=== PATIENT | female | born 1940 | race Caucasian/White ===

== ENCOUNTER 2020-08-27 13:47 | Emergency (ER) | payer MEDICARE, SELFPAY ==
--- NOTE | ~2020-08-27 | CT_ITS ---
EXAMINATION: CT BRAIN AND CT CERVICAL SPINE WITHOUT CONTRAST. CLINICAL INFORMATION: Status post fall with head strike. COMPARISON: CT abdomen 06/16/2019 TECHNIQUE: 5 mm thin axial and reformatted 2 mm thin coronal and sagittal images of brain were obtained without contrast. Subsequently axial 3 mm thin and reformatted 2 mm thin sagittal and coronal images of cervical spine were obtained. DLP 1028 FINDINGS: Brain: There is no acute intra-axial, extra-axial bleed, masses, collection or midline shift. There is no acute infarction in evolution. There is prominent Virchow Helms space at the thalamocaudate groove. Small lacunar infarction is seen in left ventral thalamus and right bety. The lateral ventricles are symmetrical and mildly prominent. There is mild prominence of cortical sulci. Bone windows reveal no calvarial fracture. There is benign hyperostosis frontalis interna. There is no scalp soft tissue abnormality. Bilateral paranasal sinuses and mastoid air cells are well-aerated. Cervical spine: On sagittal reconstructed images there is mild straightening of cervical lordosis. There is grade 1 anterolisthesis C3 over C4. There is loss of C4-C5, C5-C6 and C6-C7 disc heights with moderate ventral and mild posterior spondylosis. The craniovertebral junction and the C1-C2 alignment is normal. There is moderate left C3-C4, C4-C5 facet joint arthropathy and hypertrophy resulting in bilateral moderate narrowing of neural foramina. The prevertebral and paravertebral soft tissues are normal. The airway is widely patent. The thyroid lobes are symmetrical and normal. No visible acute fracture, dislocation or subluxation seen. Patient's head is tilted to the left, question spasm. CT/CT cervical spine wo con IMPRESSION: No acute intracranial process seen. Lacunar infarction left ventral thalamus and right bety. Age-related mild cerebral volume loss. Mild tilt cervical spine to the left. No visible acute fracture or dislocation. There are degenerative disc changes as described above.
--- NOTE | 2020-08-27 14:07 | ED.FALL ---
HPI - Fall General Chief Complaint: Fall Stated Complaint: FALL W/ HEAD STRIKE Time Seen by Provider: 08/27/20 14:06 Source: EMS Mode of arrival: EMS History of Present Illness HPI Narrative: 80 y/o female with history of CVA with left sided hemiparesis, wheelchair bound, PVD s/p fem-pop bypass, hx DM2 on insulin, HTN, HLD, obesity, depression who presents to the ED from home via EMS with a mechanical fall in the bathroom just prior to arrival. Patient's sister who she lives with and cares for her reports that she was helping the patient get up from the toilet when she tripped over the wheel of her wheelchair and feel forward. She hit her head against the wall in front of her. Sister denies LOC. She is on Plavix for her hx CVA but no aspirin or anticoagulation. Patient is AAO x3 and conversant on arrival. She is collared. She denies headache or neck pain. MD complaint: fall Onset (ago): hour(s) (1) Fall from: standing Fall witnessed: yes, by family Place fall occurred: home Loss of consciousness: none Prolonged down time: no Symptoms prior to fall: none Context: tripped/slipped Location of injury: head Severity: mild Associated symptoms (after fall): denies Related Data Allergies Allergy/AdvReac Type Severity Reaction Status Date / Time No Known Allergies Allergy Unverified 11/15/19 16:31 Review of Systems Review of Systems: Constitutional: No Fever, No Chills ENT/Mouth: No sore throat, No Rhinorrhea, No Swallowing Difficulty Eyes: No Eye Pain, No Swelling, No Redness Cardiovascular: No Chest Pain, No SOB, No Orthopnea, No Edema Respiratory: No Cough, No Sputum, No Wheezing, No dyspnea Gastrointestinal: No Nausea, No Vomiting, No Diarrhea, No abdominal Pain, No Hematochezia, No Melena Genitourinary: No Dysuria, No Urinary Frequency, No Hematuria Musculoskeletal: No joint pain, No Myalgias Skin: No Skin Lesions, No rash Neuro: No Weakness, No Numbness, No Dizziness, No Headache Psych: No Anxiety/Panic, No Depression Heme/Lymph: No Bruising, No Lymphadenopathy Endocrine: No Polyuria, No Polydipsia PMFSH Past Medical History Attestation statement: The following information was validated with the patient. Medical History CVA (cerebral vascular accident) Depression Diabetes HTN (hypertension) Macular degeneration Social History Social History Advance Directives: Yes Advance Directives Information Provided: Yes Advance Directives on File: No Physical Exam Vital Signs: Vital Signs: Last Vital Signs Temp 96.1 F L 08/27/20 14:13 Pulse 63 08/27/20 14:13 Resp 18 08/27/20 14:13 BP 133/52 L 08/27/20 14:13 Pulse Ox 97 08/27/20 14:13 Body Mass Index 53.1 Appearance: Alert. Oriented X3. No acute distress. Eyes: Pupils equal, round and reactive to light. ENT: Pharynx normal. Neck: Normal inspection. Neck supple. CVS: Normal heart rate and rhythm. Pulses normal. Respiratory: No respiratory distress. Breath sounds normal. Abdomen: Soft and nontender. +BS x4 Skin: Skin warm and dry. Normal skin color. Normal skin turgor. No rashes. Extremities: left sided hand contractures, left sided Neuro: Oriented X 3. No motor deficit. No sensory deficit. Course Course Course Narrative: 80 y/o female with history of stroke and left sided hemiplegia presenting with witnessed mechanical fall today in the bathroom with head strike, no LOC. Arrives in C-collar with no complaints. Will get CT head/neck prior to clearing cervical spine. Reevaluation(s) Reevaluation #1: CT scans showing no acute process, old lacunar infarcts noted. No traumatic injuries. Spoke with patient's sister who she lives with and who cares for her. She feels safe taking the patient home at this time. Declining need for higher level of care. Patient is stable for discharge. Discharge Plan Discharge Clinical Impression: Accident due to mechanical fall without injury Qualifiers: Encounter type: initial encounter Qualified Code(s): W19.XXXA - Unspecified fall, initial encounter Patient Disposition: Home, Self-Care Instructions: Fall Prevention for Older Adults (ED) Additional Instructions: Your CT scans today did not show any injuries from your fall. Recommend assistance whenever getting in and out of your wheelchair. Follow up with your doctor as needed.
[2020-08-27 14:13] VITALS: BP 133/52; BP 133/80; PULSE 63; PULSE 67; RESP 18; TEMP 35.6; O2SAT 97; BMI 53.1
== END 2020-08-27 16:35 | disposition home or self-care (01) ==
PROVIDERS: Emergency Provider Emergency Medicine; PCP Internal Medicine
DX: Z04.3 Encounter for examination and observation following other accident (principal); I69.954 Hemiplegia and hemiparesis following unspecified cerebrovascular disease affecting left non-dominant side; I10 Essential (primary) hypertension; E11.9 Type 2 diabetes mellitus without complications; Z79.02 Long term (current) use of antithrombotics/antiplatelets; Z79.4 Long term (current) use of insulin; Z91.81 History of falling; Z99.3 Dependence on wheelchair
CPT/HCPCS: 70450; 72125; 99283; 99284

== ENCOUNTER 2021-01-16 21:51 | Inpatient (IN) | payer MEDICARE, SELFPAY ==
--- NOTE | ~2021-01-16 | XR_ITS ---
EXAMINATION: XR HIP, LEFT WITH PELVIS CLINICAL INFORMATION: Fall, rule out fracture COMPARISON: 08/24/2018 TECHNIQUE: Two views of the left hip. AP pelvis. FINDINGS: There is a fracture of the left femoral neck with superior displacement of the femoral shaft fragment. Alignment across the hips appears anatomic with mild degenerative change bilaterally. Remainder of the bony pelvis appears intact. Sacroiliac joints and pubic symphysis are intact. Vascular calcifications are present. Clips are noted over the bilateral inguinal regions, left greater than right. XR/XR hip LT w PEL1V IMPRESSION: Left femoral neck fracture.
--- NOTE | ~2021-01-16 | XR_ITS ---
EXAMINATION: XR ANKLE, LEFT CLINICAL INFORMATION: Fall. COMPARISON: No similar priors. TECHNIQUE: AP, lateral, and mortise views of the left ankle. FINDINGS: Diffuse soft tissue edema and scattered vascular calcifications. Decreased bony demineralization with deformity and ankylosis of several joints within the hind and mid foot. Severe degenerative changes of the tibiotalar joint. No definite acute osseous fractures. XR/XR ankle LT 2V IMPRESSION: No acute fractures or malalignment although evaluation of subtle injuries is limited due to the degree of degenerative disease and bony demineralization. Ankylosis and deformity of the hind and mid foot. If ligamentous injury is suspected, consider further evaluation with an MR of the left ankle.
--- NOTE | ~2021-01-16 | CT_ITS ---
EXAMINATION: CT HEAD WITHOUT CONTRAST CT CERVICAL SPINE WITHOUT CONTRAST CLINICAL INFORMATION: Fall. COMPARISON: CT head and cervical spine dated from 08/27/2020. TECHNIQUE: Contiguous axial imaging was performed from the skull base to vertex without intravenous administration of contrast. Contiguous axial imaging was performed from the upper chest through the skull base without intravenous administration of contrast. Coronal and sagittal reformats were obtained at the acquisition workstation. This CT examination was performed using dose optimization techniques as appropriate, variously including the following: *Automated exposure control *Adjustment of mA and/or kV according to patient size (this includes techniques or standardized protocols for targeted exams where dose is matched to indication/reason for exam; i.e. extremities or head) *Use of iterative reconstruction technique DLP: 617 mGy-cm FINDINGS: Head: There is no evidence of acute intracranial hemorrhage or edematous territorial infarction. Scattered hypoattenuation in the periventricular and deep white matter are consistent with moderate microangiopathy. Multifocal remote infarcts. [place]teh-white matter differentiation is preserved. Proportional prominence of the ventricles and sulcal spaces. No evidence for obstructive hydrocephalus. No abnormal mass effect or midline shift. No extra-axial fluid collections. No acute soft tissue or osseous abnormalities. The mastoid air cells and paranasal sinuses are clear. Cervical Spine: The atlantooccipital and atlantoaxial articulations remain well aligned. Straightening of the normal cervical lordosis. There is grade 1 anterolisthesis of C3 on C4. Otherwise, there is anatomic alignment of the vertebral bodies and posterior elements. No evidence of acute fracture or subluxation. Severe cervical spondylosis with disc space narrowing, anterior osteophytes and uncovertebral hypertrophy leading to varying degrees of neural foraminal narrowing and central spinal canal stenosis. There is no prevertebral soft tissue swelling. The thyroid gland and remaining cervical soft tissues are normal in appearance. The lung apices demonstrate biapical pleural thickening/scarring. Evaluation of pulmonary nodules is suboptimal due to motion. CT/CT cervical spine wo con IMPRESSION: No acute intracranial abnormalities. Chronic microangiopathy, generalized cerebral volume loss and multiple bilateral chronic lacunar infarcts. No acute cervical findings. Severe cervical spondylosis.
[2021-01-16 22:00] VITALS: BP 150/54; PULSE 78; RESP 16; TEMP 36.6; O2SAT 91
[2021-01-16 22:03] VITALS: BP 134/76; BP 150/54; PULSE 80; PULSE 84; RESP 18; TEMP 36.6; O2SAT 97; O2SAT 98; BMI 39.8
--- NOTE | 2021-01-16 22:29 | ECG_ITS ---
Test Reason : DYSPNEA Blood Pressure : / mmHG Vent. Rate : 081 BPM Atrial Rate : 081 BPM P-R Int : 162 ms QRS Dur : 086 ms QT Int : 382 ms P-R-T Axes : 079 070 081 degrees QTc Int : 443 ms Normal sinus rhythm Poor R wave progression Borderline ECG When compared with ECG of 16-JUN-2019 14:00, No significant change was found Referred By: Radha Garcia Electronically Signed By:REYNALDO SALCIDO MD
--- NOTE | 2021-01-16 22:41 | ED.FALL ---
HPI - Fall General Chief Complaint: Fall Stated Complaint: fall/head strike Time Seen by Provider: 01/16/21 21:58 Source: patient and EMS Mode of arrival: EMS Limitations: no limitations History of Present Illness HPI Narrative: Patient comes to emergency room by EMS after falling. Patient had a mechanical fall at home, patient states that she was getting off the toilet, tripped. Patient has baseline paralysis on the left side and states that her left leg does not respond very well which caused her to trip. Patient denies hitting her head, did not lose consciousness. Patient landed on the left side of her hip. Initially, patient told the triage nurse that she had neck pain, patient denied ever having neck pain. Denies headache. Patient takes Plavix. Patient states that if she moves her hip it hurts quite a bit. Patient also noted to have internal rotation of the left ankle, states that it looks different to her but it is not painful. Related Data Allergies Allergy/AdvReac Type Severity Reaction Status Date / Time No Known Allergies Allergy Unverified 11/15/19 16:31 Review of Systems Review of Systems: Constitutional : No Weight loss, No Fever, No Chills, No Night Sweats, No Fatigue, No Malaise ENT/Mouth : No Hearing loss, No Ear Pain, No Nasal Congestion, No Sinus Pain, No Hoarseness, No sore throat, No Rhinorrhea, No Swallowing Difficulty Eyes: No Eye Pain, No Swelling, No Redness, No Foreign Body, No Discharge, No Vision Changes Cardiovascular : No Chest Pain, No SOB, No Dyspnea on Exertion, No Orthopnea, No Edema, No Palpitations Respiratory : No Cough, No Sputum, No Wheezing, No Smoke Exposure, No Dyspnea Gastrointestinal : No Nausea, No Vomiting, No Diarrhea, No Constipation, No abdominal Pain, No Hematochezia, No Melena Genitourinary : no irregular bleeding, No Dysuria, No Urinary Frequency, No Hematuria, No Urinary Incontinence, No Urgency, No Flank Pain, No Urinary Flow Changes, No Hesitancy Musculoskeletal : Patient complaining of left-sided hip pain, left ankle deformity. Skin : No Skin Lesions, No rash Neuro : No Weakness, No Numbness, No Paresthesias, No Loss of Consciousness, No Dizziness, No Headache Psych : No Anxiety/Panic, No Depression, No SI/HI/AH/VH, No Social Issues, Heme/Lymph: No Bruising, No Bleeding,No Lymphadenopathy Endocrine : No Polyuria, No Polydipsia, No Temperature Intolerance [facility], [facility] Past Medical History Medical History CVA (cerebral vascular accident) Depression Diabetes HTN (hypertension) Macular degeneration Social History Social History Patient Tobacco Use Status: Never used Tobacco Use of substances other than those prescribed or required for medical reasons: No Advance Directives: No Advance Directives Information Provided: No Physical Exam Vital Signs: Vital Signs: Last Vital Signs Temp 97.8 F 01/16/21 22:03 Pulse 80 01/16/21 22:03 Resp 18 01/16/21 22:03 BP 150/54 H 01/16/21 22:03 Pulse Ox 98 01/16/21 22:03 Body Mass Index 39.8 Const: Other: Appearance: Alert. Oriented X3. No acute distress. Eyes: Pupils equal, round and reactive to light. ENT: Pharynx normal. Neck: Normal inspection. Neck supple. No lymph nodes noted. No crepitus, no palpable step-offs, no C-spine tenderness on palpation. Patient took off her C-collar CVS: Normal heart rate and rhythm. Pulses normal. Normal S1 and S2 Respiratory: No respiratory distress. Breath sounds normal. No Wheezing. No rales Abdomen: Soft and nontender. No rigidity. No distention. good BS x4 Skin: Skin warm and dry. Normal skin color. Normal skin turgor. Extremities: No lower extremity edema. Severe pain with any movement on the left hip. Left ankle is internally rotated, not painful to palpation. Neuro: Oriented X 3. No motor deficit. No sensory deficit. Moving all extermities. No slurred speech. Course Course Course Narrative: I discussed the patient with AI Valladares from Orthopedics, patient being admitted by Medicine for left femoral fracture MDM - Fall Lab Data Result diagrams: 01/17/21 00:22 01/17/21 00:22 Imaging Data Head and neck CT scan: Radiologist's impression: INDINGS: Head: There is no evidence of acute intracranial hemorrhage or edematous territorial infarction. Scattered hypoattenuation in the periventricular and deep white matter are consistent with moderate microangiopathy. Multifocal remote infarcts. [place]-white matter differentiation is preserved. Proportional prominence of the ventricles and sulcal spaces. No evidence for obstructive hydrocephalus. No abnormal mass effect or midline shift. No extra-axial fluid collections. No acute soft tissue or osseous abnormalities. The mastoid air cells and paranasal sinuses are clear. Cervical Spine: The atlantooccipital and atlantoaxial articulations remain well aligned. Straightening of the normal cervical lordosis. There is grade 1 anterolisthesis of C3 on C4. Otherwise, there is anatomic alignment of the vertebral bodies and posterior elements. No evidence of acute fracture or subluxation. Severe cervical spondylosis with disc space narrowing, anterior osteophytes and uncovertebral hypertrophy leading to varying degrees of neural foraminal narrowing and central spinal canal stenosis. There is no prevertebral soft tissue swelling. The thyroid gland and remaining cervical soft tissues are normal in appearance. The lung apices demonstrate biapical pleural thickening/scarring. Evaluation of pulmonary nodules is suboptimal due to motion. CT/CT cervical spine wo con IMPRESSION: No acute intracranial abnormalities. ? Chronic microangiopathy, generalized cerebral volume loss and multiple bilateral chronic lacunar infarcts. ? No acute cervical findings. ? Severe cervical spondylosis. Hip x-ray: Radiologist's impression: FINDINGS: There is a fracture of the left femoral neck with superior displacement of the femoral shaft fragment. Alignment across the hips appears anatomic with mild degenerative change bilaterally. Remainder of the bony pelvis appears intact. Sacroiliac joints and pubic symphysis are intact. Vascular calcifications are present. Clips are noted over the bilateral inguinal regions, left greater than right. XR/XR hip LT w PEL1V IMPRESSION: Left femoral neck fracture. Left ankle x-ray: Radiologist's impression: XR/XR ankle LT 2V IMPRESSION: No acute fractures or malalignment although evaluation of subtle injuries is limited due to the degree of degenerative disease and bony demineralization. ? Ankylosis and deformity of the hind and mid foot. ? If ligamentous injury is suspected, consider further evaluation with an MR of the left ankle. ECG Data Attestation: I personally reviewed and interpreted this ECG as follows: (Send rhythm, heart rate 81, nonspecific ST segment depression in V5 V6, no reciprocal changes, no T-wave inversion, QTC 443) Discharge Plan Discharge Clinical Impression: Fracture of femoral neck, left, closed Patient Disposition: Admitted As Inpatient
[2021-01-17 00:26] LABS: MANUAL DIFF FLAG NO
[2021-01-17 00:33] LABS: Basophils Percent Auto 0.3 % (0-2); Eosinophils Absolute Auto 0.1 X10*3/uL (0.0-0.4); Eosinophils Percent Auto 0.5 % (0-4); Hematocrit 39.8 % (37.0-47.0); Hemoglobin 13.1 g/dl (12.0-16.0); Imm Gran Abs Auto 0.05 X10*3/uL (0.00-0.03); Imm Gran Pct Auto 0.5 % (0.0-0.4); Lymphocytes Absolute Auto 0.6 X10*3/uL (1.2-4.9); Lymphocytes Percent Auto 5.9 % (20-40); Mean Corpuscular HGB Conc 32.9 g/dl (31.0-35.0); Mean Corpuscular Volume 97.3 fL (80.0-98.0); Mean Platelet Volume 10.4 fL (9.4-12.3); Monocytes Absolute Auto 0.9 X10*3/uL (0.1-1.2); Monocytes Percent Auto 8.8 % (2-11); Neutrophils Absolute Auto 8.7 x10*3/uL (2.0-8.3); Platelet Count 207 X10*3/uL (160-400); Red Blood Count 4.09 X10*6/uL (4.20-5.50); Red Cell Distribution Width 12.7 % (11.0-16.0); White Blood Count 10.4 X10*3/uL (4.8-10.8)
[2021-01-17 00:37] VITALS: BP 134/38; PULSE 85; O2SAT 89
[2021-01-17] MEDS: traMADoL HCL 50 MG TABLET PO (00:45)
[2021-01-17 00:49] LABS: Alanine Aminotransferase 19 U/L (0-31); Albumin Level 3.6 g/dL (3.5-5.0); Alkaline Phosphatase 125 U/L (39-117); Anion Gap 16 (12-20); Aspartate Amino Transferase 16 U/L (5-31); Bilirubin Direct 0.3 mg/dL (0.0-0.5); Bilirubin Total 0.6 mg/dL (0.0-1.0); Blood Urea Nitrogen 32 mg/dL (9-16); Calcium 8.4 mg/dL (8.4-10.2); Carbon Dioxide 22 mmol/L (22-29); Chloride 102 mmol/L (96-108); Creatinine Clr Calc Pharmacy 33.9; Estimated Glomerular Filt Rate 34; Glucose Random 231 mg/dL (60-115); Potassium 5.1 mmol/L (3.3-5.1); Sodium 135 mmol/L (135-145); Total Protein 6.1 g/dL (6.5-8.0)
--- NOTE | 2021-01-17 00:50 | PC.NURSE ---
PT MEDICATED PER MAR FOR LEFT HIP PAIN. AWAITING ADMISSION FOR HIP FX, AWARE OF PLAN OF CARE.
[2021-01-17] MEDS: Morphine Sulfate 2 MG/ML CARTRIDGE 1 MG IVPUSH ×2 (02:34→05:21)
[2021-01-17 04:00] VITALS: RESP 16
--- NOTE | 2021-01-17 04:07 | PC.NURSE ---
PT RESTING IN BED SKIN PWD RESPIRATIONS EVEN UNLABORED. APPEARS COMFORTABLE. CONTINUES TO AWAIT BED ASSIGNMENT.
--- NOTE | 2021-01-17 05:47 | ECG_ITS ---
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 Rate : 083 BPM Atrial Rate : 083 BPM P-R Int : 152 ms QRS Dur : 090 ms QT Int : 362 ms P-R-T Axes : 058 054 075 degrees QTc Int : 425 ms Normal sinus rhythm Normal ECG When compared with ECG of 16-JAN-2021 22:45, No significant change was found Referred By: Radha Garcia Electronically Signed By:REYNALDO SALCIDO MD
[2021-01-17] MEDS: ondansetron HCL 4 MG/2 ML VIAL IVPUSH (05:48)
--- NOTE | 2021-01-17 05:50 | PC.NURSE ---
Hospitalist at bedside. Pt c/o of nausea and squeezing chest pain after being medicated with Morphine. Hospitalist requesting EKG. Pt medicated for nausea with Zofran. Pt now denying CP at this time, Hospitalist aware.
--- NOTE | 2021-01-17 05:59 | PM.IMHP ---
History of Present Illness Date of Service: 01/17/21 Chief Complaint: Fall This is a 80-year-old female with past medical history of CVA, depression, diabetes, hypertension, macular degeneration who presents to the hospital with complaints of fall. Patient reports that she was in the bathroom, got up distal pad of the bathroom slipped and fell. She denies having any loss of consciousness, she hit her head as she was falling. And she fell on her left hip. She reports no dizziness palpitation or chest pain prior to the fall. On my interview patient started complaining of squeezing chest pain, she had just received morphine therefore she is also complaining of nausea and had a slight vomiting. She had an EKG done well 0 standing there, which showed no EKG changes suggestive of ACS. She denies having any shortness of breath, no abdominal pain nausea or vomiting, no diarrhea constipation, no urinary symptoms and lower extremity. On arrival to the ED patient's vitals are significant for temp 97.8, otherwise unremarkable. Satting 91% on room air Labs are significant for WBC count of 10.4, BUN of 32, creatinine of 1.48 with a baseline of 0.9, X-ray of the hip shows left femoral neck fracture, X-ray of the ankle shows no acute fracture or malalignment at low evaluation of subtle injury is a similar due to the degree of degenerative disease and bony demineralization. Patient will be admitted with an orthopedic consult Review of Systems Review of Systems: Yes all other systems are reviewed and are negative [facility] Medical History (Updated 01/17/21 @ 06:06 by Cathryn Daniel MD) CVA (cerebral vascular accident) Depression Diabetes HTN (hypertension) Macular degeneration Pertinent family history: No family history of cardiovascular disease Surgical History (Updated 01/17/21 @ 06:04 by Cathryn Daniel MD) No pertinent past surgical history Social History Patient Tobacco Use Status: Never used Tobacco Use of substances other than those prescribed or required for medical reasons: No Advance Directives: No Advance Directives Information Provided: No Meds Allergies Allergy/AdvReac Type Severity Reaction Status Date / Time No Known Allergies Allergy Unverified 11/15/19 16:31 Active Medications: Current Medications Acetaminophen (Acetaminophen 325 Mg Tablet) 650 mg PO Q6H PRN PRN Reason: Pain, Mild (Pain Scale 1-3) Docusate Sodium (Docusate Sodium 100 Mg Capsule) 100 mg PO DAILY PRN PRN Reason: Constipation Morphine Sulfate (Morphine Sulfate 4 Mg/Ml Cartridge) 4 mg IVPUSH Q4H PRN; Protocol PRN Reason: Pain, Severe (Pain Scale 7-10) Ondansetron HCl (Ondansetron Hcl 4 Mg/2 Ml Vial) 4 mg IVPUSH Q8H PRN PRN Reason: Nausea and Vomiting Last Admin: 01/17/21 05:48 Dose: 4 mg Documented by: Sodium Chloride (0.9 % Sodium Chloride Flush 3 Ml Syringe) 3 ml [facility] – [place] Home Medications Medication Instructions Recorded Confirmed Last Taken Type amlodipine 10 mg tablet 1 tab PO DAILY 01/17/21 01/17/21 Unknown History bupropion HCl 150 mg 24 hr tablet, 1 tab PO DAILY 01/17/21 01/17/21 Unknown History extended release clopidogrel 75 mg tablet 1 tab PO DAILY 01/17/21 01/17/21 Unknown History famotidine 20 mg tablet 1 tab PO BID 01/17/21 01/17/21 Unknown History fluoxetine 40 mg capsule 1 cap PO DAILY 01/17/21 01/17/21 Unknown History insulin glargine 100 unit/mL (3 56 unit SUBCUT BEDTIME 01/17/21 01/17/21 Unknown History mL) subcutaneous pen (Lantus Solostar U-100 Insulin) insulin lispro 100 unit/mL sliding scale dose SUBCUT TIDAC PRN 01/17/21 Unknown History subcutaneous pen losartan 50 mg tablet 1 tab PO DAILY 01/17/21 01/17/21 Unknown History metoprolol succinate 25 mg 1 tab PO DAILY 01/17/21 01/17/21 Unknown History tablet,extended release 24 hr simvastatin 20 mg tablet 1 tab PO BEDTIME 01/17/21 01/17/21 Unknown History spironolactone 25 mg tablet 1 tab PO DAILY 01/17/21 01/17/21 Unknown History Physical Exam Vital Signs and Narrative: Vital Signs: Last Vital Signs Temp 97.8 F 01/16/21 22:03 Pulse 85 01/17/21 00:37 Resp 16 01/17/21 04:00 BP 134/38 L 01/17/21 00:37 Pulse Ox 89 L 01/17/21 00:37 Body Mass Index 39.8 Const: Other: Appears uncomfortable, squeezing her chest, had an episode of vomiting while I was present General: cooperative and no acute distress Orientation/consciousness: patient oriented x3 Eyes: General: appearance normal, both eyes and all related structures Pupils: Equal, round and reactive pupils present Resp: Effort & Inspection: normal respiratory effort Auscultation: clear to auscultation bilaterally Cardio: Rate: regular rate Rhythm: regular rhythm GI: Other: Soft nontender Palpation (GI): Soft to palpation Auscultation: normal bowel sounds Skin: General skin exam: no rashes or lesions noted Neuro: General: patient oriented x3 Cranial nerves: Yes Equal, round and reactive pupils present Cognition (Neuro): normal cognition Extrem: Other: Left extremity is internally rotated General: Yes normal to inspection and Yes no pedal edema Results Labs CBC and Chem 7: 01/17/21 00:22 01/17/21 00:22 Labs: Laboratory Results - last 24 hr 01/17/21 01/17/21 00:22 00:22 MCV 97.3 MCH 32.0 MCHC 32.9 RDW 12.7 Plt Count 207 MPV 10.4 Immature Gran % (Auto) 0.5 H Neut % (Auto) 84.0 H Lymph % (Auto) 5.9 L [place] % (Auto) 8.8 Eos % (Auto) 0.5 Baso % (Auto) 0.3 Lymph # (Auto) 0.6 L [place] # (Auto) 0.9 Eos # (Auto) 0.1 Baso # (Auto) 0.0 Abs Immat Gran (auto) 0.05 H Absolute Neuts (auto) 8.7 H Absolute Nucleated RBC 0.000 Nucleated RBC % (auto) 0.0 Anion Gap 16 Estim Creat Clear Calc 33.9 Estimated GFR 34 Random Glucose 231 H Calcium 8.4 Total Bilirubin 0.6 Direct Bilirubin 0.3 AST 16 ALT 19 Alkaline Phosphatase 125 H Total Protein 6.1 L Albumin 3.6 ECG Interpretation: EKG shows normal sinus rhythm with no ST T-wave changes suggestive of ACS Imaging Radiologist's Impressions: Impressions Ankle X-Ray 01/16/21 22:29 IMPRESSION: No acute fractures or malalignment although evaluation of subtle injuries is limited due to the degree of degenerative disease and bony demineralization. Ankylosis and deformity of the hind and mid foot. If ligamentous injury is suspected, consider further evaluation with an MR of the left ankle. Cervical Spine CT 01/16/21 22:29 IMPRESSION: No acute intracranial abnormalities. Chronic microangiopathy, generalized cerebral volume loss and multiple bilateral chronic lacunar infarcts. No acute cervical findings. Severe cervical spondylosis. Head CT 01/16/21 22:29 IMPRESSION: No acute intracranial abnormalities. Chronic microangiopathy, generalized cerebral volume loss and multiple bilateral chronic lacunar infarcts. No acute cervical findings. Severe cervical spondylosis. Hip/Pelvis X-Ray 01/16/21 22:29 IMPRESSION: Left femoral neck fracture. Assessment and Plan (1) Fracture of femoral neck, left, closed: Qualifiers: Encounter type: initial encounter Qualified Code(s): S72.002A - Fracture of unspecified part of neck of left femur, initial encounter for closed fracture Status: Acute (2) Chest pain: Status: Acute 80-year-old female with various medical history including diabetes and hypertension who presents to the hospital with complaints of fall found to have left femoral neck fracture # left femoral neck fracture - secondary to mechanical fall - pain control with morphine - will keep NPO - orthopedic consult for possible surgical intervention in morning # chest pain - complaining of squeezing chest pain, developed nausea vomiting immediately after receiving morphine - EKG shows no ST T-wave changes - will obtain troponin - monitor # diabetes - hold oral antihyperglycemics - will start low-dose sliding scale insulin - diabetic diet once able to eat # hypertension - stable - continue antihypertensive Will hold Plavix DVT prophylaxis: SCDs Quality Stroke Does the patient have a stroke diagnosis?: No VTE Prior VTE?: No VTE Risk Level:: Medical - moderate - high VTE Device Contraindication: N/A - Device Ordered VTE Drug Contraindication: Treatment Not Indicated
--- NOTE | 2021-01-17 06:20 | PHA.MEDREC ---
Pharmacy Consult ? Medication Reconciliation Pharmacy has checked the previous medication reconciliation.
[2021-01-17 06:38] LABS: MANUAL DIFF FLAG NO
[2021-01-17 06:45] LABS: Basophils Percent Auto 0.2 % (0-2); Eosinophils Absolute Auto 0.1 X10*3/uL (0.0-0.4); Eosinophils Percent Auto 0.7 % (0-4); Hemoglobin 12.8 g/dl (12.0-16.0); Imm Gran Abs Auto 0.05 X10*3/uL (0.00-0.03); Imm Gran Pct Auto 0.4 % (0.0-0.4); Lymphocytes Absolute Auto 0.7 X10*3/uL (1.2-4.9); Lymphocytes Percent Auto 5.3 % (20-40); Mean Corpuscular HGB Conc 33.7 g/dl (31.0-35.0); Mean Corpuscular Hemoglobin 32.1 pg (27.0-33.0); Mean Corpuscular Volume 95.2 fL (80.0-98.0); Mean Platelet Volume 10.4 fL (9.4-12.3); Monocytes Absolute Auto 1.3 X10*3/uL (0.1-1.2); Monocytes Percent Auto 10.3 % (2-11); Neutrophils Absolute Auto 10.2 x10*3/uL (2.0-8.3); Neutrophils Percent Auto 83.1 % (45-73); Platelet Count 214 X10*3/uL (160-400); Red Blood Count 3.99 X10*6/uL (4.20-5.50); Red Cell Distribution Width 12.4 % (11.0-16.0); White Blood Count 12.2 X10*3/uL (4.8-10.8)
[2021-01-17 07:02] LABS: Anion Gap 14 (12-20); Blood Urea Nitrogen 32 mg/dL (9-16); Calcium 8.1 mg/dL (8.4-10.2); Carbon Dioxide 22 mmol/L (22-29); Chloride 104 mmol/L (96-108); Creatinine Clr Calc Pharmacy 39.6; Estimated Glomerular Filt Rate 40; Glucose Random 236 mg/dL (60-115); Potassium 5.1 mmol/L (3.3-5.1); Sodium 135 mmol/L (135-145)
[2021-01-17 07:10] LABS: Troponin-I High Sensitivity 17.2 ng/L (<3.5-17.0)
[2021-01-17 08:56] VITALS: BP 120/58; PULSE 86; RESP 20; O2SAT 97
[2021-01-17] MEDS: Famotidine 20 MG TABLET PO ×2 (08:58→21:07)
[2021-01-17] MEDS: amLODIPine Besylate 10 MG TABLET PO (08:58)
[2021-01-17] MEDS: 0.9 % Sodium Chloride Flush 3 ML SYRINGE IVFLUSH ×3 (08:58→22:34)
[2021-01-17] MEDS: Spironolactone 25 MG TABLET PO (08:58)
[2021-01-17] MEDS: FLUoxetine HCl 20 MG CAPSULE 40 MG PO (08:58)
[2021-01-17] MEDS: buPROPion HCl XL 150 MG TAB.ER.24H PO (08:58)
[2021-01-17] MEDS: Metoprolol Succinate ER 25 MG TAB.ER.24H PO (08:58)
[2021-01-17] MEDS: Losartan Potassium 50 MG TABLET PO (08:59)
--- NOTE | 2021-01-17 10:05 | PM.EVENT ---
Event Note Date of Service: 01/17/21 Event Note: 80 yo with femoral neck fracture on plavix tentative plan for OR tuesday or tuesday. Plavix cont to hold. make NPO after midnight
[2021-01-17 10:16] LABS: COVID-19 Test Negative (Negative)
[2021-01-17 11:05] LABS: Glucose, Whole Blood 237 mg/dL (60-115)
--- NOTE | 2021-01-17 11:15 | PM.EVENT ---
Event Note Date of Service: 01/17/21 Event Note: Preop evaluation None emergency surgery, no acute coronary syndrome High MACE score of 2, moderate functional capacity EKG showing no ST or T-wave changes Proceed to operating room, no further testing necessary at this point patient carries mild to moderate risk of perioperative cardiac complications
[2021-01-17 12:59] VITALS: BP 148/48; PULSE 81; RESP 18; TEMP 36.7; O2SAT 97
--- NOTE | 2021-01-17 13:00 | PC.NURSE ---
patient a&ox2, pt c/o left leg pain 5/10, + csm/pulses to LLE, rowan cath patient, draining, family at bedside, will continue to monitor.
[2021-01-17 13:03] LABS: Glucose, Whole Blood 248 mg/dL (60-115)
--- NOTE | 2021-01-17 14:33 | PC.NURSE ---
patient a&ox2, pt rowan cath patient/draining clear yellow urine, pt refusing pain medications at this time, pt continues to have + csm/pulses to lle, will continue to monitor.
--- NOTE | 2021-01-17 15:40 | PM.CNOR ---
History of Present Illness HPI Consult date: 01/17/21 Chief complaint: Femoral Fracture Narrative: This is a 80-year-old female with past medical history of CVA, depression, diabetes, hypertension, macular degeneration who presents to the hospital with complaints of fall.? Patient reports that she was in the bathroom, slipped and fell. She states she was unable to get up. At baseline she is wheelchair bound, left sided hemiparesis s/p CVA in 2013. She was transported to the ED via EMS. While in the ED, xrays showed displaced femoral neck fracture on the left side. She was admitted to the medical service and orthopedics was consulted for surgical planning. Review of Systems Review of Systems: Yes all other systems are reviewed and are negative PMFSH Past Medical History Medical History (Updated 01/17/21 @ 06:06 by Cathryn Daniel MD) CVA (cerebral vascular accident) Depression Diabetes HTN (hypertension) Macular degeneration Surgical History Surgical History (Updated 01/17/21 @ 06:04 by Ctahryn Daniel MD) No pertinent past surgical history Social History Social History Household Members: Family Housing: House Patient Tobacco Use Status: Never used Tobacco service: No Current occupational status: retired Meds Allergies Allergy/AdvReac Type Severity Reaction Status Date / Time No Known Allergies Allergy Unverified 11/15/19 16:31 Active Medications: Current Medications Acetaminophen (Acetaminophen 325 Mg Tablet) 650 mg PO Q6H PRN PRN Reason: Pain, Mild (Pain Scale 1-3) Amlodipine Besylate (Amlodipine Besylate 10 Mg Tablet) 10 mg PO DAILY [facility]; Protocol Last Admin: 01/17/21 08:58 Dose: 10 mg Documented by: Atorvastatin Calcium (Atorvastatin Calcium 10 Mg Tablet) 10 mg PO BEDTIME [facility] Bupropion HCl (Bupropion Hcl Xl 150 Mg Tab.Er.24h) 150 mg PO DAILY [facility] Last Admin: 01/17/21 08:58 Dose: 150 mg Documented by: Docusate Sodium (Docusate Sodium 100 Mg Capsule) 100 mg PO DAILY PRN PRN Reason: Constipation Famotidine (Famotidine 20 Mg Tablet) 20 mg PO BID [facility] Last Admin: 01/17/21 08:58 Dose: 20 mg Documented by: Fluoxetine HCl (Fluoxetine Hcl 20 Mg Capsule) 40 mg PO DAILY [facility] Last Admin: 01/17/21 08:58 Dose: 40 mg Documented by: Insulin Glargine (Insulin Glargine,Hum.Rec.Anlog 100 Unit/Ml 10 Ml Vial) 56 unit SUBCUT BEDTIME [facility] Losartan Potassium (Losartan Potassium 50 Mg Tablet) 50 mg PO DAILY [facility]; Protocol Last Admin: 01/17/21 08:59 Dose: 50 mg Documented by: Metoprolol Succinate (Metoprolol Succinate Er 25 Mg Tab.Er.24h) 25 mg PO DAILY [facility]; Protocol Last Admin: 01/17/21 08:58 Dose: 25 mg Documented by: Morphine Sulfate (Morphine Sulfate 4 Mg/Ml Cartridge) 4 mg IVPUSH Q4H PRN; Protocol PRN Reason: Pain, Severe (Pain Scale 7-10) Ondansetron HCl (Ondansetron Hcl 4 Mg/2 Ml Vial) 4 mg IVPUSH Q8H PRN PRN Reason: Nausea and Vomiting Last Admin: 01/17/21 05:48 Dose: 4 mg Documented by: Sodium Chloride (0.9 % Sodium Chloride Flush 3 Ml Syringe) [facility] Last Admin: 01/17/21 08:58 Dose: 3 ml Documented by: Spironolactone (Spironolactone 25 Mg Tablet) 25 mg PO DAILY [facility]; Protocol Last Admin: 01/17/21 08:58 Dose: 25 mg Documented by: Home Medications Medication Instructions Recorded Confirmed Last Taken Type amlodipine 10 mg tablet 1 tab PO DAILY 01/17/21 01/17/21 Unknown History bupropion HCl 150 mg 24 hr tablet, 1 tab PO DAILY 01/17/21 01/17/21 Unknown History extended release clopidogrel 75 mg tablet 1 tab PO DAILY 01/17/21 01/17/21 Unknown History famotidine 20 mg tablet 1 tab PO BID 01/17/21 01/17/21 Unknown History fluoxetine 40 mg capsule 1 cap PO DAILY 01/17/21 01/17/21 Unknown History insulin glargine 100 unit/mL (3 56 unit SUBCUT BEDTIME 01/17/21 01/17/21 Unknown History mL) subcutaneous pen (Lantus Solostar U-100 Insulin) insulin lispro 100 unit/mL sliding scale dose SUBCUT TIDAC PRN 01/17/21 Unknown History subcutaneous pen losartan 50 mg tablet 1 tab PO DAILY 01/17/21 01/17/21 Unknown History metoprolol succinate 25 mg 1 tab PO DAILY 01/17/21 01/17/21 Unknown History tablet,extended release 24 hr simvastatin 20 mg tablet 1 tab PO BEDTIME 01/17/21 01/17/21 Unknown History spironolactone 25 mg tablet 1 tab PO DAILY 01/17/21 01/17/21 Unknown History Physical Exam Vital Signs: Vital Signs: Last Vital Signs Temp 98.1 F 01/17/21 12:59 Pulse 81 01/17/21 12:59 Resp 18 01/17/21 12:59 BP 148/48 H 01/17/21 12:59 Pulse Ox 97 01/17/21 12:59 Body Mass Index 39.8 Const: General: cooperative, healthy appearing, comfortable, no acute distress, well developed and alert Orientation/consciousness: patient oriented x3 HENMT: Head: Yes normal to inspection, Yes normocephalic and Yes atraumatic Eyes: General: appearance normal, both eyes and all related structures Neck: Neck: Yes normal visual inspection and Yes no lymphadenopathy Resp: Effort & Inspection: normal respiratory effort and able to speak in complete sentences Cardio: Rate: regular rate Peripheral pulses: Peripheral pulses 2+ throughout GI: Inspection: Yes normal to inspection Palpation (GI): Soft to palpation Skin: General skin exam: no rashes or lesions noted Neuro: General: patient oriented x3 Extrem: Other: Left hip skin intact, no erythema or open wounds. Pain with log roll,unable to SLR. Her left ankle in inverted. Psych: Appearance: grossly normal Mental Status: mental status grossly normal Results Labs Result Diagrams: 01/18/21 04:50 01/18/21 04:50 Labs: Abnormal lab results 01/17/21 01/17/21 01/17/21 Range/Units 00:22 00:22 06:18 WBC 12.2 H (4.8-10.8) X10*3/uL RBC 4.09 L 3.99 L (4.20-5.50) X10*6/uL Immature Gran % (Auto) 0.5 H (0.0-0.4) % Neut % (Auto) 84.0 H 83.1 H (45-73) % Lymph % (Auto) 5.9 L 5.3 L (20-40) % Lymph # (Auto) 0.6 L 0.7 L (1.2-4.9) X10*3/uL [place] # (Auto) 1.3 H (0.1-1.2) X10*3/uL Abs Immat Gran (auto) 0.05 H 0.05 H (0.00-0.03) X10*3/uL Absolute Neuts (auto) 8.7 H 10.2 H (2.0-8.3) x10*3/uL BUN 32 H (9-16) mg/dL Creatinine 1.48 H (0.5-1.4) mg/dL POC Glucose (60-115) mg/dL Random Glucose 231 H (60-115) mg/dL Calcium (8.4-10.2) mg/dL Alkaline Phosphatase 125 H (39-117) U/L Troponin I High Sens (<3.5-17.0) ng/L Total Protein 6.1 L (6.5-8.0) g/dL 01/17/21 01/17/21 01/17/21 Range/Units 06:18 06:18 08:01 WBC (4.8-10.8) X10*3/uL RBC (4.20-5.50) X10*6/uL Immature Gran % (Auto) (0.0-0.4) % Neut % (Auto) (45-73) % Lymph % (Auto) (20-40) % Lymph # (Auto) (1.2-4.9) X10*3/uL [place] # (Auto) (0.1-1.2) X10*3/uL Abs Immat Gran (auto) (0.00-0.03) X10*3/uL Absolute Neuts (auto) (2.0-8.3) x10*3/uL BUN 32 H (9-16) mg/dL Creatinine (0.5-1.4) mg/dL POC Glucose (60-115) mg/dL Random Glucose 236 H (60-115) mg/dL Calcium 8.1 L (8.4-10.2) mg/dL Alkaline Phosphatase (39-117) U/L Troponin I High Sens 17.2 H* 19.0 H* (<3.5-17.0) ng/L Total Protein (6.5-8.0) g/dL 01/17/21 01/17/21 Range/Units 11:01 13:00 WBC (4.8-10.8) X10*3/uL RBC (4.20-5.50) X10*6/uL Immature Gran % (Auto) (0.0-0.4) % Neut % (Auto) (45-73) % Lymph % (Auto) (20-40) % Lymph # (Auto) (1.2-4.9) X10*3/uL [place] # (Auto) (0.1-1.2) X10*3/uL Abs Immat Gran (auto) (0.00-0.03) X10*3/uL Absolute Neuts (auto) (2.0-8.3) x10*3/uL BUN (9-16) mg/dL Creatinine (0.5-1.4) mg/dL POC Glucose 237 H 248 H (60-115) mg/dL Random Glucose (60-115) mg/dL Calcium (8.4-10.2) mg/dL Alkaline Phosphatase (39-117) U/L Troponin I High Sens (<3.5-17.0) ng/L Total Protein (6.5-8.0) g/dL H & H 01/17/21 01/17/21 Range/Units 00:22 06:18 Hgb 13.1 12.8 (12.0-16.0) g/dl Hct 39.8 38.0 (37.0-47.0) % All other labs normal. Diagnostic results Hip x-ray: image reviewed (dispalced femoral neck fracture left ) Assessment and Plan (1) Fracture of femoral neck, left, closed: Qualifiers: Encounter type: initial encounter Qualified Code(s): S72.002A - Fracture of unspecified part of neck of left femur, initial encounter for closed fracture Status: Acute I discussed the case with Dr Posada and explained the extent of the injury to the patient and options available which include surgical intervention vs conservative management since she is wheelchair bound. We explained the procedure in detail along with the length of recovery and rehab course. We explained the risk, benefits and alternatives to surgery given her being wheelchair bound and left sided hemiparesis. The Risk including, but not limited to infection, blood clots, bleeding, recurrent dislocation, poor bone quality which may make for an unstable prosthesis and nerve/tissue damage to surrounding areas. I spoke with her sister Giselle who she lives with and helps with her care. I answered all their questions and the plan at this time is to continue to observe the patient to see how she does with pain control. If the decision is make to not fix the fracture, she can continue transfers as tolerated. We will continue to discuss. Procedures Date of Service Date of Service: 01/17/21
--- NOTE | 2021-01-17 15:59 | PC.NURSE ---
floor to call back to get report
--- NOTE | 2021-01-17 17:11 | PC.NURSE ---
patient currently sleeping, awaiting for floor to call to take report
[2021-01-17 19:04] VITALS: BP 158/47; PULSE 83; RESP 18; TEMP 37.1; O2SAT 99
[2021-01-17 20:38] VITALS: BMI 39.9
[2021-01-17] MEDS: Morphine Sulfate 4 MG/ML CARTRIDGE IVPUSH (20:49)
[2021-01-17] MEDS: Atorvastatin Calcium 10 MG TABLET PO (21:07)
[2021-01-17 21:16] LABS: Glucose, Whole Blood 218 mg/dL (60-115)
[2021-01-17] MEDS: Insulin Lispro 100 UNIT/ML 3 ML VIAL SUBCUT (22:32)
[2021-01-18] VITALS (7 sets, daily range): BP systolic 131–170; BP diastolic 47–70; PULSE 59–86; RESP 16–18; TEMP 36.2–37; O2SAT 92–99
--- NOTE | 2021-01-18 00:41 | MHC.PIE ---
P: Pt had a glucose =218, Pt will be NPO after midnight for possible left hip surgery in the morning, I: Dr. Daniel was notified, and ordered Lispro sliding scale instrad and to hold Lantus E: Lispro 4 units SC given
[2021-01-18 06:13] LABS: Hematocrit 36.2 % (37.0-47.0); Mean Corpuscular HGB Conc 33.1 g/dl (31.0-35.0); Mean Corpuscular Hemoglobin 32.1 pg (27.0-33.0); Mean Corpuscular Volume 96.8 fL (80.0-98.0); Platelet Count 198 X10*3/uL (160-400); Red Blood Count 3.74 X10*6/uL (4.20-5.50); Red Cell Distribution Width 12.6 % (11.0-16.0); White Blood Count 9.7 X10*3/uL (4.8-10.8)
[2021-01-18 06:41] LABS: Anion Gap 14 (12-20); Blood Urea Nitrogen 44 mg/dL (9-16); Calcium 8.2 mg/dL (8.4-10.2); Carbon Dioxide 23 mmol/L (22-29); Chloride 103 mmol/L (96-108); Creatinine Clr Calc Pharmacy 31.5; Estimated Glomerular Filt Rate 31; Glucose Random 195 mg/dL (60-115); Potassium 5.3 mmol/L (3.3-5.1); Sodium 135 mmol/L (135-145)
[2021-01-18 07:46] LABS: Glucose, Whole Blood 186 mg/dL (60-115)
[2021-01-18] MEDS: Sodium Polystyrene Sulfon/Sorb 15 GM/60 ML ORAL.SUSP 30 GM PO (08:00)
[2021-01-18] MEDS: 0.9 % Sodium Chloride Flush 3 ML SYRINGE IVFLUSH ×2 (08:02→20:41)
[2021-01-18] MEDS: 0.9 % Sodium Chloride 1,000 ML 80 ML IVCONT ×2 (08:02→20:40)
[2021-01-18] MEDS: amLODIPine Besylate 10 MG TABLET PO (08:08)
[2021-01-18] MEDS: buPROPion HCl XL 150 MG TAB.ER.24H PO (08:08)
[2021-01-18] MEDS: FLUoxetine HCl 20 MG CAPSULE 40 MG PO (08:08)
[2021-01-18] MEDS: Famotidine 20 MG TABLET PO ×2 (08:08→20:40)
[2021-01-18] MEDS: Morphine Sulfate 4 MG/ML CARTRIDGE IVPUSH (09:53)
--- NOTE | 2021-01-18 11:01 | P.PNIM_ITS ---
Subjective Subjective Date of Service: 01/18/21 Interval History: the patient was seen and evaluated this morning Laying in bed, feels comfortable overall with mild pain in her hip Denies any fever, chills or shortness of breath No reported other overnight events. Systemic review: No fever, chills or weakness No chest pain, palpitation No shortness of breath or coughing No abdominal pain, nausea or vomiting No urinary symptoms Physical Exam Vital Signs: Vital Signs: Last Vital Signs Temp 97.9 F 01/18/21 10:54 Pulse 80 01/18/21 10:54 Resp 16 01/18/21 10:54 BP 139/70 01/18/21 10:54 Pulse Ox 92 01/18/21 10:54 Body Mass Index 39.9 Const: Other: Constitutional : Alert, oriented, not in distress Neck : Normal inspection, Supple Cardiovascular : RRR, S1 S2, no lower extremity edema Respiratory : Fair bilateral air entry, no crackles, wheezes or rhonchi Gastrointestinal: soft, lax, Normal bowel sounds, Non tender Skin : Warm, Dry skeletal, left lower extremity shorter and externally rotated Neurological : Alert & oriented x3, Left-sided weakness Objective Data Active Medications Acetaminophen (Acetaminophen 325 Mg Tablet) 650 mg PO Q6H PRN PRN Reason: Pain, Mild (Pain Scale 1-3) Amlodipine Besylate (Amlodipine Besylate 10 Mg Tablet) 10 mg PO DAILY [facility]; Protocol Last Admin: 01/18/21 08:08 Dose: 10 mg Documented by: JIMY Atorvastatin Calcium (Atorvastatin Calcium 10 Mg Tablet) 10 mg PO BEDTIME [facility] Last Admin: 01/17/21 21:07 Dose: 10 mg Documented by: CASTILM Bupropion HCl (Bupropion Hcl Xl 150 Mg Tab.Er.24h) 150 mg PO DAILY [facility] Last Admin: 01/18/21 08:08 Dose: 150 mg Documented by: JIMY Dextrose (Dextrose 50 % 25 Gm/50 Ml Vial) 25 gm IVPUSH Q15M PRN; Protocol PRN Reason: per Hypoglycemia Standing Ord. Docusate Sodium (Docusate Sodium 100 Mg Capsule) 100 mg PO DAILY PRN PRN Reason: Constipation Famotidine (Famotidine 20 Mg Tablet) 20 mg PO BID [facility] Last Admin: 01/18/21 08:08 Dose: 20 mg Documented by: JIMY Fluoxetine HCl (Fluoxetine Hcl 20 Mg Capsule) 40 mg PO DAILY [facility] Last Admin: 01/18/21 08:08 Dose: 40 mg Documented by: JIMY Glucose (Glucose Gel 15 Gm Gel..Gram.) 15 gm PO Q15M PRN; Protocol PRN Reason: per Hypoglycemia Standing Ord. Sodium Chloride (Ns) 1,000 mls @ 80 mls/hr IVCONT .[id number] [facility] Last Admin: 01/18/21 08:02 Dose: 80 mls/hr Documented by: JIMY Insulin Glargine (Insulin Glargine,Hum.Rec.Anlog 100 Unit/Ml 10 Ml Vial) 56 unit SUBCUT BEDTIME [facility] Last Admin: 01/17/21 22:17 Dose: Not Given Documented by: JEANNE Non-Admin Reason: Physician Approved Insulin Human Lispro (Insulin Lispro 100 Unit/Ml 3 Ml Vial) 0 unit SUBCUT QIDACHS [facility]; Protocol Last Admin: 01/18/21 08:01 Dose: Not Given Documented by: JIMY Non-Admin Reason: NPO Losartan Potassium (Losartan Potassium 50 Mg Tablet) 50 mg PO DAILY [facility]; Protocol Last Admin: 01/18/21 08:08 Dose: Not Given Documented by: JIMY Non-Admin Reason: NPO Metoprolol Succinate (Metoprolol Succinate Er 25 Mg Tab.Er.24h) 25 mg PO DAILY [facility]; Protocol Last Admin: 01/18/21 08:08 Dose: Not Given Documented by: JIMY Non-Admin Reason: NPO Morphine Sulfate (Morphine Sulfate 4 Mg/Ml Cartridge) 4 mg IVPUSH Q4H PRN; Protocol PRN Reason: Pain, Severe (Pain Scale 7-10) Last Admin: 01/18/21 09:53 Dose: 4 mg Documented by: JIMY Ondansetron HCl (Ondansetron Hcl 4 Mg/2 Ml Vial) 4 mg IVPUSH Q8H PRN PRN Reason: Nausea and Vomiting Last Admin: 01/17/21 05:48 Dose: 4 mg Documented by: JOVANNI Sodium Chloride (0.9 % Sodium Chloride Flush 3 Ml Syringe) 3 ml IVFLUSH QSHIFT [facility] Last Admin: 01/18/21 08:02 Dose: 3 ml Documented by: JIMY Spironolactone (Spironolactone 25 Mg Tablet) 25 mg PO DAILY [facility]; Protocol Last Admin: 01/18/21 08:08 Dose: Not Given Documented by: JIMY Non-Admin Reason: NPO Labs CBC & Chem 7: 01/18/21 04:50 01/18/21 04:50 Labs: Laboratory Results - last 24 hr 01/17/21 01/17/21 01/17/21 11:01 13:00 21:10 MCV MCH MCHC RDW Plt Count MPV Absolute Nucleated RBC Nucleated RBC % (auto) Anion Gap Estim Creat Clear Calc Estimated GFR POC Glucose 237 H 248 H 218 H Random Glucose Calcium 01/18/21 01/18/21 01/18/21 04:50 04:50 07:14 MCV 96.8 MCH 32.1 MCHC 33.1 RDW 12.6 Plt Count 198 MPV 11.0 Absolute Nucleated RBC 0.000 Nucleated RBC % (auto) 0.0 Anion Gap 14 Estim Creat Clear Calc 31.5 Estimated GFR 31 POC Glucose 186 H Random Glucose 195 H Calcium 8.2 L Assessment and Plan (1) Fracture of femoral neck, left, closed: Status: Acute Assessment and Plan: 80-year-old female with various medical history including diabetes and hypertension who presents to the hospital with complaints of fall found to have left femoral neck fracture # left femoral neck fracture secondary to mechanical fall As needed morphine Pending surgery NPO Plan for surgery today by orthopedic team # chest pain Resolved EKG shows no ST T-wave changes Troponin trended flat # diabetes hold oral antihyperglycemics low-dose sliding scale insulin diabetic diet once able to eat # hypertension continue antihypertensive Will hold Plavix DVT prophylaxis: SCDs Quality Stroke Does the patient have a stroke diagnosis?: No VTE Prior VTE?: No VTE Risk Level:: Medical - moderate - high VTE Device Contraindication: N/A - Device Ordered VTE Drug Contraindication: Treatment Not Indicated
[2021-01-18 11:02] LABS: Glucose, Whole Blood 235 mg/dL (60-115)
[2021-01-18] MEDS: Insulin Lispro 100 UNIT/ML 3 ML VIAL SUBCUT ×3 (11:55→21:38)
--- NOTE | 2021-01-18 13:47 | MHC.CM.PN ---
IMM 01/18/21, EMR REVIEWED, PT ADMITTED AFTER MECAHNICAL FALL AND WILL HAVE LEFT HIP REPAIR TOMORROW PER NOTES, CM MET W/PT WHO ANSWERED A FEW QUESTIONS AND ASKED CM TO CONTACT HER SISTER/ALTERNATE HCP KEVIN, THIS CM CONTACTED HER AT1:20PM [phone], PER SISTER PT IS W/C BOUND AND STAND AND TAKES A FEW STEPS TO TXFR TO BED/BR, PT HAS A PLASTIC BRACE SHE WEARS FROM BELOW KNEE TO ANKLE, PT WAS SEEN BY [facility] FOR NEW [facility] TO PROVIDE MORE SUPPORT HOWEVER IT WAS UNCOMFORTABLE SO PT DECLINED, KEVIN REPORTS PT HAS BEE CONFUSED ON AND OFF SINCE HER STROKE IN 2012, SISTER REPORTS PT HAS HAD [facility] BUT SHE WILL NEED TO GO TO STR AND PREFERS [facility]) AND [facility] (#2), PT HAS [facility]OLST AND HCP ON FILE FROM PREVIOUS VISITS, D/C PLAN: STR W/ACTION BLS TRANSPORT.
--- NOTE | 2021-01-18 14:07 | PM.EVENT ---
Event Note Date of Service: 01/18/21 Event Note: spoke with sister today and discussed with her the optios surgery vs non surgical. 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
[2021-01-18 16:40] LABS: Glucose, Whole Blood 198 mg/dL (60-115)
[2021-01-18 20:38] LABS: Glucose, Whole Blood 260 mg/dL (60-115)
[2021-01-18] MEDS: Atorvastatin Calcium 10 MG TABLET PO (20:40)
[2021-01-19] MEDS: Morphine Sulfate 4 MG/ML CARTRIDGE IVPUSH ×2 (00:24→14:55)
[2021-01-19] MEDS: ondansetron HCL 4 MG/2 ML VIAL IVPUSH (00:29)
--- NOTE | 2021-01-19 01:47 | MHC.PIE ---
P: Pt is NPO post midnight for possible surgery in the morning, HBG=[phone] I: Dr. Daniel was notified and ordered to give Lispro coverage and to hold the scheduled Lantus E: pt tolerated med and had some snacks
[2021-01-19 03:45] VITALS: BP 128/56; PULSE 88; RESP 17; TEMP 36.6; O2SAT 95
[2021-01-19 05:45] LABS: Hematocrit 32.6 % (37.0-47.0); Hemoglobin 10.8 g/dl (12.0-16.0); Mean Corpuscular HGB Conc 33.1 g/dl (31.0-35.0); Mean Corpuscular Hemoglobin 32.2 pg (27.0-33.0); Mean Corpuscular Volume 97.3 fL (80.0-98.0); Mean Platelet Volume 10.8 fL (9.4-12.3); Platelet Count 194 X10*3/uL (160-400); Red Blood Count 3.35 X10*6/uL (4.20-5.50); Red Cell Distribution Width 12.4 % (11.0-16.0); White Blood Count 8.9 X10*3/uL (4.8-10.8)
[2021-01-19 06:09] LABS: Anion Gap 15 (12-20); Blood Urea Nitrogen 44 mg/dL (9-16); Calcium 7.7 mg/dL (8.4-10.2); Carbon Dioxide 21 mmol/L (22-29); Chloride 105 mmol/L (96-108); Creatinine Clr Calc Pharmacy 38.7; Estimated Glomerular Filt Rate 39; Glucose Random 283 mg/dL (60-115); Potassium 4.5 mmol/L (3.3-5.1); Sodium 136 mmol/L (135-145)
[2021-01-19 07:14] VITALS: BP 144/55; PULSE 84; RESP 18; TEMP 37.2; O2SAT 98
[2021-01-19 07:53] LABS: Glucose, Whole Blood 238 mg/dL (60-115)
[2021-01-19] MEDS: Spironolactone 25 MG TABLET PO (08:28)
[2021-01-19] MEDS: FLUoxetine HCl 20 MG CAPSULE 40 MG PO (08:28)
[2021-01-19] MEDS: Famotidine 20 MG TABLET PO ×2 (08:28→21:22)
[2021-01-19] MEDS: Losartan Potassium 50 MG TABLET PO (08:29)
[2021-01-19] MEDS: buPROPion HCl XL 150 MG TAB.ER.24H PO (08:29)
[2021-01-19] MEDS: Metoprolol Succinate ER 25 MG TAB.ER.24H PO (08:29)
[2021-01-19] MEDS: Insulin Lispro 100 UNIT/ML 3 ML VIAL SUBCUT ×4 (08:30→21:22)
[2021-01-19] MEDS: amLODIPine Besylate 10 MG TABLET PO (08:30)
[2021-01-19] MEDS: 0.9 % Sodium Chloride Flush 3 ML SYRINGE IVFLUSH (08:31)
[2021-01-19] MEDS: 0.9 % Sodium Chloride 1,000 ML 80 ML IVCONT ×2 (08:33→21:26)
--- NOTE | 2021-01-19 09:40 | P.PNIM_ITS ---
Subjective Subjective Date of Service: 01/19/21 Interval History: the patient was seen and evaluated this morning Laying in bed, feels comfortable overall, Pain on movement and left hip Denies any fever, chills or shortness of breath No reported other overnight events. Systemic review: No fever, chills or weakness No chest pain, palpitation No shortness of breath or coughing No abdominal pain, nausea or vomiting No urinary symptoms Physical Exam Vital Signs: Vital Signs: Last Vital Signs Temp 98.9 F 01/19/21 07:14 Pulse 84 01/19/21 07:14 Resp 18 01/19/21 07:14 BP 144/55 H 01/19/21 07:14 Pulse Ox 98 01/19/21 07:14 Body Mass Index 39.9 Const: Other: Constitutional : Alert, oriented, not in distress Neck : Normal inspection, Supple Cardiovascular : RRR, S1 S2, no lower extremity edema Respiratory : Fair bilateral air entry, no crackles, wheezes or rhonchi Gastrointestinal: soft, lax, Normal bowel sounds, Non tender Skin : Warm, Dry skeletal, left lower extremity shorter and externally rotated Neurological : Alert & oriented x3, Left-sided weakness Objective Data Active Medications Acetaminophen (Acetaminophen 325 Mg Tablet) 650 mg PO Q6H PRN PRN Reason: Pain, Mild (Pain Scale 1-3) Amlodipine Besylate (Amlodipine Besylate 10 Mg Tablet) 10 mg PO DAILY [facility]; Protocol Last Admin: 01/19/21 08:30 Dose: 10 mg Documented by: CANDACE Atorvastatin Calcium (Atorvastatin Calcium 10 Mg Tablet) 10 mg PO BEDTIME [facility] Last Admin: 01/18/21 20:40 Dose: 10 mg Documented by: CASTILSaturnino Bupropion HCl (Bupropion Hcl Xl 150 Mg Tab.Er.24h) 150 mg PO DAILY [facility] Last Admin: 01/19/21 08:29 Dose: 150 mg Documented by: CANDACE Dextrose (Dextrose 50 % 25 Gm/50 Ml Vial) 25 gm IVPUSH Q15M PRN; Protocol PRN Reason: per Hypoglycemia Standing Ord. Docusate Sodium (Docusate Sodium 100 Mg Capsule) 100 mg PO DAILY PRN PRN Reason: Constipation Famotidine (Famotidine 20 Mg Tablet) 20 mg PO BID [facility] Last Admin: 01/19/21 08:28 Dose: 20 mg Documented by: CANDACE Fluoxetine HCl (Fluoxetine Hcl 20 Mg Capsule) 40 mg PO DAILY [facility] Last Admin: 01/19/21 08:28 Dose: 40 mg Documented by: CANDACE Glucose (Glucose Gel 15 Gm Gel..Gram.) 15 gm PO Q15M PRN; Protocol PRN Reason: per Hypoglycemia Standing Ord. Sodium Chloride (Ns) 1,000 mls @ 80 mls/hr IVCONT .[id number] [facility] Last Admin: 01/19/21 08:33 Dose: 80 mls/hr Documented by: CANDACE Insulin Glargine (Insulin Glargine,Hum.Rec.Anlog 100 Unit/Ml 10 Ml Vial) 56 unit SUBCUT BEDTIME [facility] Last Admin: 01/18/21 21:42 Dose: Not Given Documented by: JEANNE Non-Admin Reason: Physician Approved Insulin Human Lispro (Insulin Lispro 100 Unit/Ml 3 Ml Vial) 0 unit SUBCUT QIDACHS [facility]; Protocol Last Admin: 01/19/21 08:30 Dose: 4 unit Documented by: CANDACE Losartan Potassium (Losartan Potassium 50 Mg Tablet) 50 mg PO DAILY [facility]; Protocol Last Admin: 01/19/21 08:29 Dose: 50 mg Documented by: CANDACE Metoprolol Succinate (Metoprolol Succinate Er 25 Mg Tab.Er.24h) 25 mg PO DAILY [facility]; Protocol Last Admin: 01/19/21 08:29 Dose: 25 mg Documented by: CANDACE Morphine Sulfate (Morphine Sulfate 4 Mg/Ml Cartridge) 4 mg IVPUSH Q4H PRN; Protocol PRN Reason: Pain, Severe (Pain Scale 7-10) Last Admin: 01/19/21 00:24 Dose: 4 mg Documented by: JEANNE Ondansetron HCl (Ondansetron Hcl 4 Mg/2 Ml Vial) 4 mg IVPUSH Q8H PRN PRN Reason: Nausea and Vomiting Last Admin: 01/19/21 00:29 Dose: 4 mg Documented by: JEANNE Sodium Chloride (0.9 % Sodium Chloride Flush 3 Ml Syringe) 3 ml IVFLUSH QSHIFT [facility] Last Admin: 01/19/21 08:31 Dose: 3 ml Documented by: CANDACE Spironolactone (Spironolactone 25 Mg Tablet) 25 mg PO DAILY [facility]; Protocol Last Admin: 01/19/21 08:28 Dose: 25 mg Documented by: CANDACE Labs CBC & Chem 7: 01/19/21 05:23 01/19/21 05:23 Labs: Laboratory Results - last 24 hr 01/18/21 01/18/21 01/18/21 10:55 16:24 20:27 MCV MCH MCHC RDW Plt Count MPV Absolute Nucleated RBC Nucleated RBC % (auto) Anion Gap Estim Creat Clear Calc Estimated GFR POC Glucose 235 H 198 H 260 H Random Glucose Calcium 01/19/21 01/19/21 01/19/21 05:23 05:23 07:13 MCV 97.3 MCH 32.2 MCHC 33.1 RDW 12.4 Plt Count 194 MPV 10.8 Absolute Nucleated RBC 0.000 Nucleated RBC % (auto) 0.0 Anion Gap 15 Estim Creat Clear Calc 38.7 Estimated GFR 39 POC Glucose 238 H Random Glucose 283 H Calcium 7.7 L D Assessment and Plan (1) Fracture of femoral neck, left, closed: Status: Acute Assessment and Plan: 80-year-old female with various medical history including diabetes and hypertension who presents to the hospital with complaints of fall found to have left femoral neck fracture # left femoral neck fracture secondary to mechanical fall As needed morphine Pending surgery Plan for tomorrow Orthopedic team to speak to the family to address goals of care # diabetes hold oral antihyperglycemics low-dose sliding scale insulin diabetic diet once able to eat # hypertension continue antihypertensive Will hold Plavix DVT prophylaxis: SCDs Quality Stroke Does the patient have a stroke diagnosis?: No VTE Prior VTE?: No VTE Risk Level:: Medical - moderate - high VTE Device Contraindication: N/A - Device Ordered VTE Drug Contraindication: Treatment Not Indicated
--- NOTE | 2021-01-19 10:55 | P.CDIC_ITS ---
CDI Concurrent Query Documentation Clarification: PHYSICIAN'S DOCUMENTATION REQUEST Date of Query: 01/19/21 1055 Patient Name: Joanne Childers Admit Date: 01/17/21 Dear Doctor, A review of the medical record indicates additional documentation may be needed. Please review below and update the documentation accordingly. Risk Factors/Clinical Indicators/Treatments On 01/17/21, H/H: 13.1/39.8 On 01/18/21, H/H: 12.0/36.2 On 01/19/21, H/H: 10.8/32.6 Based on the above, could you clarify in the Progress Notes the appropriate diagnosis, if significant, that supports the above abnormalities and additional evaluation, monitoring, and/or treatment rendered: * Based on the above clinical indicators, please provide a diagnosis associated with the evaluation, monitoring and treatment of the patients H/H level * Other (please specify) * Unable to determine Use of terms such as suspected, likely, concern for, or probable (associated with a specific diagnosis that is being evaluated, monitored, or treated as if it exists) are acceptable and can be coded in the inpatient setting, when documented at the time of discharge. Thank you, Heaven Mclaughlin RN Extension: [phone] Please use your independent medical judgment in providing your response. THIS QUERY IS PART OF THE PERMANENT MEDICAL RECORD Provider Response: Other Other Diagnosis: .
[2021-01-19 11:20] VITALS: BP 140/63; PULSE 81; RESP 18; TEMP 35.7; O2SAT 98
[2021-01-19 11:35] LABS: Glucose, Whole Blood 291 mg/dL (60-115)
--- NOTE | 2021-01-19 11:40 | MHC.CM.PN ---
Per ROUNDS discussion, Patient is not yet medically cleared for dc (Surgery tomorrow). STR is the goal for dc and CM has updated referrals to 2 top choice facilities. CM returned a call to Patient's Sister/Giselle @ [phone], but was only able to leave a detailed message regarding dc planning.
[2021-01-19 14:19] VITALS: BMI 39.9
--- NOTE | 2021-01-19 14:29 | MHC.CLN ---
NUTRITION CONSULT NUTRITION CONSULT FOR SKIN ISSUES. FUNGAL INFECTION PRESENT TO LOWER ABDOMEN AND RIGHT BREAST. NO PRESSURE AREAS. DIET=DIABETIC 1800 KCAL. PROVIDES 27.8 KCAL/KG CMW. RD TO FOLLOW WEEKLY.
[2021-01-19 14:48] VITALS: BP 151/58; PULSE 83; RESP 18; TEMP 36.3; O2SAT 96
[2021-01-19 16:20] LABS: Glucose, Whole Blood 268 mg/dL (60-115)
[2021-01-19 19:22] VITALS: BP 139/62; PULSE 85; RESP 18; TEMP 37.1; O2SAT 98
[2021-01-19 19:39] LABS: Glucose, Whole Blood 290 mg/dL (60-115)
[2021-01-19] MEDS: Atorvastatin Calcium 10 MG TABLET PO (21:22)
[2021-01-20] VITALS: BP 143/62; PULSE 81; RESP 17; TEMP 36.4; O2SAT 94
[2021-01-20 00:32] VITALS: RESP 18
[2021-01-20] MEDS: Morphine Sulfate 4 MG/ML CARTRIDGE IVPUSH (00:32)
[2021-01-20 03:55] VITALS: BP 140/64; PULSE 88; RESP 17; TEMP 37; O2SAT 93
[2021-01-20 07:39] VITALS: BP 157/66; PULSE 89; RESP 18; TEMP 36.9; O2SAT 90
[2021-01-20 07:45] LABS: Glucose, Whole Blood 280 mg/dL (60-115)
[2021-01-20] MEDS: Losartan Potassium 50 MG TABLET PO (07:47)
[2021-01-20] MEDS: amLODIPine Besylate 10 MG TABLET PO (07:47)
[2021-01-20] MEDS: Famotidine 20 MG TABLET PO (07:47)
[2021-01-20] MEDS: FLUoxetine HCl 20 MG CAPSULE 40 MG PO (07:47)
[2021-01-20] MEDS: Spironolactone 25 MG TABLET PO (07:47)
[2021-01-20] MEDS: Metoprolol Succinate ER 25 MG TAB.ER.24H PO (07:48)
[2021-01-20] MEDS: buPROPion HCl XL 150 MG TAB.ER.24H PO (07:48)
--- NOTE | 2021-01-20 08:31 | PC.NURSE ---
Skin/Wound assessment completed . Patient has redness to buttocks and fungal rash under breasts and in abdominal folds. Breasts and abdominal folds cleanse with wound cleanser then Interdry applied under breasts and in abdominal folds. Barrier cream applied to buttocks. Patient is repositioned every 2 hours.
--- NOTE | 2021-01-20 10:30 | P.PNIM_ITS ---
Subjective Subjective Date of Service: 01/20/21 Interval History: the patient was seen and evaluated this morning Laying in bed, feels comfortable overall Pain on movement and left hip Denies any fever, chills or shortness of breath No reported other overnight events. Systemic review: No fever, chills or weakness No chest pain, palpitation No shortness of breath or coughing No abdominal pain, nausea or vomiting No urinary symptoms Physical Exam Vital Signs: Vital Signs: Last Vital Signs Temp 98.5 F 01/20/21 07:39 Pulse 89 01/20/21 07:39 Resp 18 01/20/21 07:39 BP 157/66 H 01/20/21 07:39 Pulse Ox 90 L 01/20/21 07:39 Body Mass Index 39.9 Const: Other: Constitutional : Alert, oriented, not in distress Neck : Normal inspection, Supple Cardiovascular : RRR, S1 S2, no lower extremity edema Respiratory : Fair bilateral air entry, no crackles, wheezes or rhonchi Gastrointestinal: soft, lax, Normal bowel sounds, Non tender Skin : Warm, Dry skeletal, left lower extremity shorter and externally rotated Neurological : Alert & oriented x3, Left-sided weakness Objective Data Active Medications Acetaminophen (Acetaminophen 325 Mg Tablet) 650 mg PO Q6H PRN PRN Reason: Pain, Mild (Pain Scale 1-3) Amlodipine Besylate (Amlodipine Besylate 10 Mg Tablet) 10 mg PO DAILY [facility]; Protocol Last Admin: 01/20/21 07:47 Dose: 10 mg Documented by: SUE Atorvastatin Calcium (Atorvastatin Calcium 10 Mg Tablet) 10 mg PO BEDTIME [facility] Last Admin: 01/19/21 21:22 Dose: 10 mg Documented by: CHRISTIAN Bupropion HCl (Bupropion Hcl Xl 150 Mg Tab.Er.24h) 150 mg PO DAILY [facility] Last Admin: 01/20/21 07:48 Dose: 150 mg Documented by: SUE Dextrose (Dextrose 50 % 25 Gm/50 Ml Vial) 25 gm IVPUSH Q15M PRN; Protocol PRN Reason: per Hypoglycemia Standing Ord. Docusate Sodium (Docusate Sodium 100 Mg Capsule) 100 mg PO DAILY PRN PRN Reason: Constipation Famotidine (Famotidine 20 Mg Tablet) 20 mg PO BID [facility] Last Admin: 01/20/21 07:47 Dose: 20 mg Documented by: SUE Fluoxetine HCl (Fluoxetine Hcl 20 Mg Capsule) 40 mg PO DAILY [facility] Last Admin: 01/20/21 07:47 Dose: 40 mg Documented by: SUE Glucose (Glucose Gel 15 Gm Gel..Gram.) 15 gm PO Q15M PRN; Protocol PRN Reason: per Hypoglycemia Standing Ord. Insulin Glargine (Insulin Glargine,Hum.Rec.Anlog 100 Unit/Ml 10 Ml Vial) 56 unit SUBCUT BEDTIME [facility] Last Admin: 01/19/21 23:29 Dose: Not Given Documented by: CHRISTIAN Non-Admin Reason: NPO at midnight Insulin Human Lispro (Insulin Lispro 100 Unit/Ml 3 Ml Vial) 0 unit SUBCUT QIDACHS [facility]; Protocol Last Admin: 01/20/21 07:40 Dose: Not Given Documented by: SUE Non-Admin Reason: NPO Losartan Potassium (Losartan Potassium 50 Mg Tablet) 50 mg PO DAILY [facility]; Protocol Last Admin: 01/20/21 07:47 Dose: 50 mg Documented by: SUE Metoprolol Succinate (Metoprolol Succinate Er 25 Mg Tab.Er.24h) 25 mg PO DAILY [facility]; Protocol Last Admin: 01/20/21 07:48 Dose: 25 mg Documented by: SUE Morphine Sulfate (Morphine Sulfate 4 Mg/Ml Cartridge) 4 mg IVPUSH Q4H PRN; Protocol PRN Reason: Pain, Severe (Pain Scale 7-10) Last Admin: 01/20/21 00:32 Dose: 4 mg Documented by: CHRISTIAN Ondansetron HCl (Ondansetron Hcl 4 Mg/2 Ml Vial) 4 mg IVPUSH Q8H PRN PRN Reason: Nausea and Vomiting Last Admin: 01/19/21 00:29 Dose: 4 mg Documented by: CASTILSaturnino Sodium Chloride (0.9 % Sodium Chloride Flush 3 Ml Syringe) [facility] Last Admin: 01/20/21 07:40 Dose: Not Given Documented by: SUE Non-Admin Reason: IV Running Spironolactone (Spironolactone 25 Mg Tablet) 25 mg PO DAILY [facility]; Protocol Last Admin: 01/20/21 07:47 Dose: 25 mg Documented by: SUE Labs CBC & Chem 7: 01/19/21 05:23 01/19/21 05:23 Labs: Laboratory Results - last 24 hr 01/19/21 01/19/21 01/19/21 11:17 16:16 19:34 POC Glucose 291 H 268 H 290 H 01/20/21 07:38 POC Glucose 280 H Assessment and Plan (1) Fracture of femoral neck, left, closed: Status: Acute Assessment and Plan: 80-year-old female with various medical history including CVA w Lt hemiparesis, diabetes and hypertension who presents to the hospital with complaints of fall found to have left femoral neck fracture # left femoral neck fracture secondary to mechanical fall As needed morphine Pending surgery Plan for today after discussing with family Orthopedic team to speak to the family to address goals of care # diabetes hold oral antihyperglycemics low-dose sliding scale insulin diabetic diet once able to eat # hypertension continue antihypertensive hold Plavix DVT prophylaxis: SCDs Quality Stroke Does the patient have a stroke diagnosis?: No VTE Prior VTE?: No VTE Risk Level:: Medical - moderate - high VTE Device Contraindication: N/A - Device Ordered VTE Drug Contraindication: Treatment Not Indicated
--- NOTE | 2021-01-20 10:55 | P.EN_ITS ---
Event Note Date of Service: 01/20/21 Event Note: Dr. Posada to contact the patient's family to discuss treatment p marky. It is in his expert opinion that the patient would not benefit from surgical intervention at this time. Patient is mainly nonambulatory and only pivots on the lower extremities for transfers. She is mainly wheelchair bound. Surgery has been canceled at this time.
[2021-01-20 11:55] VITALS: BP 157/66; PULSE 85; RESP 18; TEMP 36.7; O2SAT 92
[2021-01-20 12:02] LABS: Glucose, Whole Blood 321 mg/dL (60-115)
[2021-01-20] MEDS: Insulin Lispro 100 UNIT/ML 3 ML VIAL SUBCUT (12:34)
--- NOTE | 2021-01-20 13:47 | P.DS_ITS ---
DS: Providers Provider Date of Service: 01/20/21 Date of admission: 01/17/21 00:43 Primary care physician: Akira Casiano MD Consults: 01/17/21 04:07 Consult to Orthopedics Routine Consulting Provider: Tommy Posada Reason for consultation: femoral frx Has provider been notified: Yes DS: Diagnosis Discharge Diagnosis (1) Fracture of femoral neck, left, closed: Status: Acute (2) Chest pain: Status: Acute DS: Summary Hospital Course Hospital Course: Admission note HPI This is a 80-year-old female with past medical history of CVA, depression, diabetes, hypertension, macular degeneration who presents to the hospital with complaints of fall.? Patient reports that she was in the bathroom, got up distal pad of the bathroom slipped and fell.? She denies having any loss of consciousness, she hit her head as she was falling.? And she fell on her left hip.? She reports no dizziness palpitation or chest pain prior to the fall.? On my interview patient started complaining of squeezing chest pain, she had just received morphine therefore she is also complaining of nausea and had a slight vomiting.? She had an EKG done well 0 standing there, which showed no EKG changes suggestive of ACS.? She denies having any shortness of breath, no abdominal pain nausea or vomiting, no diarrhea constipation, no urinary symptoms and lower extremity. On arrival to the ED patient's vitals are significant for temp 97.8, otherwise unremarkable.? Satting 91% on room air Labs are significant for WBC count of 10.4, BUN of 32, creatinine of 1.48 with a baseline of 0.9, X-ray of the hip shows left femoral neck fracture, X-ray of the ankle shows no acute fracture or malalignment at low evaluation of subtle injury is a similar due to the degree of degenerative disease and bony demineralization. Patient will be admitted with an orthopedic consult Hospital course The patient was admitted after an x-ray showed left femoral neck fracture. Orthopedic team evaluated the patient and discussed the need of surgery with the patient and her healthcare proxy with decision made not to proceed with surgery given Dr. Posada expert opinion that the patient would not benefit from surgical intervention this time as the patient is non ambulatory and only move around for transfers as she is wheel chair bound. The patient complain of chest pain at time of presentation that was evaluated with EKG and troponin. EEG did not show any ST or T wave changes to suggest ACS. Troponin trended negative. Evaluated by Physical and Occupational therapy with recommendation for short- term rehab placement. Anticipated length of stay less than 30 days. Time Spent with Patient Time attestation: Total time spent providing and/or coordinating discharge services: Discharge coordination time: Greater than 30 minutes Quality: Stroke Does the patient have a stroke diagnosis?: No Physical Exam Vital Signs: Vital Signs: Last Vital Signs Temp 98.0 F 01/20/21 11:55 Pulse 85 01/20/21 11:55 Resp 18 01/20/21 11:55 BP 157/66 H 01/20/21 11:55 Pulse Ox 92 01/20/21 11:55 Body Mass Index 39.9 Const: Other: Constitutional : Alert, oriented, not in distress Neck : Normal inspection, Supple Cardiovascular : RRR, S1 S2, no lower extremity edema Respiratory : Fair bilateral air entry, no crackles, wheezes or rhonchi Gastrointestinal: soft, lax, Normal bowel sounds, Non tender Skin : Warm, Dry skeletal, left lower extremity shorter and externally rotated Neurological : Alert & oriented x3, Left-sided weakness DS: Data Data Completed and Pending Labs on day of discharge: Laboratory Results - last 24 hr 01/19/21 01/19/21 01/20/21 16:16 19:34 07:38 POC Glucose 268 H 290 H 280 H 01/20/21 11:54 POC Glucose 321 H Discharge Plan Discharge Patient Disposition: [facility] Discharge Diagnosis: Hip fracture Referrals: [facility] - [facility] [Outside] - 1 Week Akira Casiano MD [Primary Care Provider] - 1 Week Discharge Medications: Continued losartan 50 mg tablet 1 tab PO DAILY RF: 0 fluoxetine 40 mg capsule 1 cap PO DAILY RF: 0 clopidogrel 75 mg tablet 1 tab PO DAILY RF: 0 spironolactone 25 mg tablet 1 tab PO DAILY RF: 0 famotidine 20 mg tablet 1 tab PO BID RF: 0 amlodipine 10 mg tablet 1 tab PO DAILY RF: 0 simvastatin 20 mg tablet 1 tab PO BEDTIME RF: 0 metoprolol succinate 25 mg tablet extended release 24 hr 1 tab PO DAILY RF: 0 insulin lispro 100 unit/mL insulin pen subcut TIDAC PRN (Reason: Hyperglycemia) RF: 0 bupropion HCl 150 mg tablet extended release 24 hr 1 tab PO DAILY RF: 0 Lantus Solostar U-100 Insulin 100 unit/mL (3 mL) insulin pen 56 unit subcut BEDTIME RF: 0 Discharge Orders: Discharge Order (Routine); Ordered 01/20/21 Ordered By: Meena Dorsey Diet: advance to usual diet Activity on Discharge: As tolerated Stand Alone Forms: Patient Portal Discharge page Activity Restrictions/Additional Instructions: Weight bear as tolerated left hip for transfers. Patient has no range of motion restrictions. Care Plan Goals: Read below Health Concerns: Read below Plan of Treatment: Read below Assessment: You were admitted to the hospital after sustaining a fall at home. Found to have left hip fracture. Evaluated by Orthopedic team and discussed with your healthcare proxy with decision made not to proceed with surgery given no benefit anticipated from it. Plan to start physical therapy at rehab center.
--- NOTE | 2021-01-20 13:57 | MHC.CM.PN ---
Patient has been medically cleared for dc to SNF/STR today. Patient will dc to [facility] today at 4:30 PM, via [facility]. Patient's Siter/HCP/Giselle at [phone] is aware of and in agreement with the dc plan. Last IMM addressed on 01/18/21.
[2021-01-20 15:16] VITALS: BP 135/62; PULSE 82; RESP 17; TEMP 36.8; O2SAT 91
[2021-01-20 16:22] LABS: Glucose, Whole Blood 276 mg/dL (60-115)
== END 2021-01-20 18:28 | disposition skilled nursing facility (03) | DRG 536 ==
LOC: HO.ED 01-17 00:40 → HO.EDOVER 01-17 01:16 → HO.S3 01-17 15:28
PROVIDERS: Admitting Provider Internal Medicine; Emergency Provider Emergency Medicine; PCP Internal Medicine; Visit Provider Student in an Organized Health Care Education/Training Program
DX: S72.002A Fracture of unspecified part of neck of left femur, initial encounter for closed fracture (principal); I69.354 Hemiplegia and hemiparesis following cerebral infarction affecting left non-dominant side; W01.0XXA Fall on same level from slipping, tripping and stumbling without subsequent striking against object, initial encounter; R07.9 Chest pain, unspecified; Y93.9 Activity, unspecified; Y92.002 Bathroom of unspecified non-institutional (private) residence as the place of occurrence of the external cause; Z20.822 Contact with and (suspected) exposure to COVID-19; Z79.4 Long term (current) use of insulin; Z79.02 Long term (current) use of antithrombotics/antiplatelets; Z79.899 Other long term (current) drug therapy
CPT/HCPCS: 36415; 70450; 72125; 73502; 73600; 80048; 80076; 82947; 84484; 85025; 85027; 87635; 93005; 97167; 99285; C1758; J2270; J2405

== ENCOUNTER 2021-07-24 22:56 | Inpatient (IN) | payer MEDICARE, MEDICAID, SELFPAY ==
--- NOTE | ~2021-07-24 | XR_ITS ---
EXAMINATION: XR HIP, LEFT CLINICAL INFORMATION: Left hip fracture. COMPARISON: Pelvic and left hip radiographs dated 01/16/2021. TECHNIQUE: AP view of the pelvis as well as AP and crosstable lateral views of the left hip. FINDINGS: Redemonstration of a left femoral neck fracture with increased displacement and proximal dislocation of the distal fracture fragment. There is an acute, oblique fracture through the greater trochanter. There is adjacent new bone/callus formation. No dislocation. No osseous erosion. Extensive surgical clips and atherosclerotic calcifications. XR/XR hip LT w PEL1V IMPRESSION: Chronic femoral neck fracture with increased displacement. Acute, oblique fracture through the greater tuberosity.
--- NOTE | ~2021-07-24 | CT_ITS ---
EXAMINATION: NONCONTRAST HEAD CT NONCONTRAST CERVICAL SPINE CT INDICATION INFORMATION: Altered mental status, pain COMPARISON: 01/16/2021 TECHNIQUE: Separate noncontrast CT examinations of the head and cervical spine were performed. Coronal head CT images and coronal and sagittal cervical spine images were created at the technologist workstation. DLP: 990 mGy-cm DOSE LOWERING TECHNIQUES: This CT examination was performed using dose optimization techniques as appropriate, variously including the following: - Automated exposure control - Adjustment of mA and/or kV according to patient size (this includes techniques or standardized protocols for targeted exams were dose is matched to indication/reason for exam; i.e. extremities or head) - Use of iterative reconstruction technique FINDINGS: Head: Limited evaluation in some regions due to motion artifact. There is no evidence of acute intracranial hemorrhage or territorial infarction. No abnormal mass-effect or midline shift is seen. Conteh to white matter differentiation is well preserved. No extra-axial fluid collections are identified. The ventricles are normal in size. There is mild periventricular white matter hypoattenuation consistent with chronic small vessel ischemic disease. Several scattered chronic lacunar infarcts are noted. Noted to fracture is seen. Hyperostosis frontalis interna is noted. The mastoid air cells and visualized portions of the paranasal sinuses are well-aerated. Cervical spine: There is degenerative change at the atlantodens articulation. Grade 1 anterolisthesis of C3 on C4 is unchanged from prior. Vertebral body heights are maintained. There is disc space narrowing of the lower cervical spine with associated endplate osteophytes. There is severe bilateral facet arthropathy. No evidence of acute fracture. No prevertebral soft tissue swelling. Visualized portions of the lung apices are unremarkable. The thyroid gland is unremarkable. CT/CT cervical spine wo con IMPRESSION: 1. Head: Limited evaluation in some regions due to motion artifact. No acute findings identified. 2. Cervical spine: No acute findings identified. Redemonstrated degenerative changes.
--- NOTE | ~2021-07-24 | CT_ITS ---
EXAM: NONCONTRAST CT OF THE CHEST; NONCONTRAST CT OF THE ABDOMEN AND PELVIS INDICATION: Altered mental status, chest and abdominal pain COMPARISON: 08/24/2017 TECHNIQUE: No IV contrast was utilized. Multidetector helical imaging was performed through the chest, abdomen, and pelvis. Coronal and sagittal reformatted images were created at the technologist workstation. DOSE LOWERING TECHNIQUES: This CT examination was performed using dose optimization techniques as appropriate, variously including the following: - Automated exposure control - Adjustment of mA and/or kV according to patient size (this includes techniques or standardized protocols for targeted exams were dose is matched to indication/reason for exam; i.e. extremities or head) - Use of iterative reconstruction technique DLP: 1595 mGy-cm FINDINGS: Chest: Parenchymal evaluation in some regions is limited due to respiratory motion artifact. Mild regions of groundglass opacity are present in the posterior right upper lobe and basilar right lower lobe. No pneumothorax or pleural effusion. The visualized thyroid gland is unremarkable. Borderline enlarged subcarinal lymph node, nonspecific. Cardiac size is within normal limits; no pericardial effusion. Coronary artery calcifications are present. There is atherosclerotic calcification along the aorta. No axillary lymphadenopathy is present. Degenerative changes are noted in the spine. Abdomen/Pelvis: Limited evaluation in some regions due to motion artifact. The liver is homogeneous in attenuation without intrahepatic biliary ductal dilatation. Status post cholecystectomy. Partial fatty atrophy of the pancreas. Spleen is grossly unremarkable. Somewhat thickened appearance of both adrenal glands is similar to prior. The unenhanced kidneys are unremarkable without hydronephrosis. No renal or ureteral calculi are present. The urinary bladder is minimally distended and not well evaluated. The uterus and adnexa are unremarkable. No evidence of bowel obstruction or significant wall thickening. No free fluid or free air is identified. There is extensive vascular calcification. No retroperitoneal or pelvic lymphadenopathy is seen. Degenerative changes are noted in the spine with prominent facet arthropathy. Partial loss of height in the L3 vertebral body appears similar to prior. There is a comminuted, impacted fracture of the left femoral neck and trochanteric region with surrounding soft tissue swelling. CT/CT abdomen pelvis wo con IMPRESSION: 1. Comminuted, impacted fracture of the left femoral neck and trochanteric region. 2. Mild regions of pulmonary groundglass opacity in the posterior right upper lobe and basilar right lower lobe, which could be due to atelectasis or possibly mild inflammatory/infectious change.
[2021-07-24 23:07] VITALS: BP 106/52; PULSE 86; RESP 15; TEMP 36; O2SAT 96; BMI 33.5
--- NOTE | 2021-07-24 23:22 | ED_ITS ---
HPI - General Adult General Chief complaint: General Medical Stated complaint: hypoglycemia Time Seen by Provider: 07/24/21 23:22 Source: EMS Mode of arrival: EMS Limitations: no limitations History of Present Illness HPI narrative: 81-year-old female history of CVA, depression, diabetes, hypertension, macular degeneration [facility] with a low sugars, patient was found to have a sugar of 33 upon EMS arrival, according to EMS nursing staff at the facility report the patient was not responding. When EMS arrived they gave D50 50 mg and they recheck patient's blood sugar which was 104. 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 Patient is unable to give me a clear history unable to answer review of systems. Related Data Home Medications Medication Instructions Recorded Confirmed amlodipine 10 mg tablet 1 tab PO DAILY 01/17/21 07/25/21 clopidogrel 75 mg tablet 1 tab PO DAILY 01/17/21 07/25/21 famotidine 20 mg tablet 1 tab PO BID 01/17/21 07/25/21 fluoxetine 40 mg capsule 1 cap PO DAILY 01/17/21 07/25/21 insulin glargine 100 unit/mL (3 56 unit SUBCUT BEDTIME 01/17/21 07/25/21 mL) subcutaneous pen (Lantus Solostar U-100 Insulin) losartan 50 mg tablet 1 tab PO DAILY 01/17/21 07/25/21 metoprolol succinate 25 mg 1 tab PO DAILY 01/17/21 07/25/21 tablet,extended release 24 hr simvastatin 20 mg tablet 1 tab PO BEDTIME 01/17/21 07/25/21 spironolactone 25 mg tablet 1 tab PO DAILY 01/17/21 07/25/21 bupropion HCl 75 mg tablet 1 tab PO BID 07/25/21 07/25/21 cefuroxime axetil 250 mg tablet 1 tab PO BID 07/25/21 07/25/21 insulin lispro 100 unit/mL 5 unit SUBCUT TID 07/25/21 07/25/21 subcutaneous pen Allergies Allergy/AdvReac Type Severity Reaction Status Date / Time No Known Allergies Allergy Unverified 11/15/19 16:31 Review of Systems Review of Systems: Yes Unobtainable due to mental status PMFSH Past Medical History Attestation statement: The following information was validated with the patient. Source: old records reviewed and nursing notes reviewed Medical History CVA (cerebral vascular accident) Depression Diabetes HTN (hypertension) Macular degeneration Surgical History No pertinent past surgical history Social History Social History Household Members: Family Housing: House Patient Tobacco Use Status: Never used Tobacco Use of substances other than those prescribed or required for medical reasons: No Advance Directives: No Advance Directives Information Provided: No service: No Current occupational status: retired Physical Exam ED Vital Signs: Vital Signs - 24 hr 07/24/21 23:07 07/24/21 23:37 07/25/21 00:56 Temperature 96.8 F 95.6 F L Pulse Rate 86 75 65 Respiratory Rate 15 18 25 H Blood Pressure 106/52 L 118/46 L 135/51 L Pulse Oximetry 96 98 98 07/25/21 01:17 Temperature Pulse Rate 61 Respiratory Rate 20 Blood Pressure 136/44 L Pulse Oximetry 96 BMI result Body Mass Index 33.5 Patient is noted to be hypotensive. Appearance: Awake, alert, moving all extremities, appears uncomfortable. Moaning in pain. Head: Normocephalic, atraumatic, no step-offs or deformities Eyes: Pupils equal, round and reactive to light.? ENT: Pharynx normal.? Neck: Normal inspection.? Neck supple.? CVS: Normal heart rate and rhythm.? Pulses normal.? Respiratory: No respiratory distress.? Breath sounds normal.? Abdomen: Soft and diffusely tender abdomen.? Skin: Skin warm and dry.? Normal skin color.? Normal skin turgor.? Extremities: No lower extremity edema.? No calf ttp. Global weakness. + wounds to bilateral lower extremities. Back: No midline tenderness, no C-spine tenderness, full range of motion, no CVA tenderness bilaterally Neuro: Awake, alert, moving all extremities, unable to do a full neurological examination secondary to patient's mental status Course Reevaluation(s) Reevaluation #1: Nursing staff with a critical patients rooms therefore there was a delay in labs. Time: 01:00 Reevaluation #2: Patient is noted to be hypoglycemic, 50 mg of D50 have been ordered as well as oral glucose. Patient is noted to have a leukocytosis, a normocytic anemia. No acute electrolyte abnormalities requiring intervention. Patient is however noted to have a glucose of 28, therefore D5 as well as oral glucose gel have been given as well as starting D5 with normal saline. Patient's troponin 25.6, EKG pending. At this time infection is suspected, since patient is hypoglycemic will give dextrose w/ NS IV. Time: 01:23 Reevaluation #3: Assist informed that patient is a DNR, DNI and do not transfer to hospital. Patient's blood sugar was 138 at approximately 16:00, she received 52 unit of Lantus however unable to confirm what time per facility. At this time I am going to contact the facility as it is unclear to me as to why patient was brought into the emergency department without reaching out to the doctor at the facility, will also reach out to patient's family to confirm family wishes as patient is not able to answer questions for herself. Dimer + however age adjusted D-dimer for VTE negative, unlikley PE there for wi ll not order CTA Time: 01:45 Additional Reevaluation(s): 0225 Patients urine is cloudy, jamar and foul smelling likley infection. However waiting for UA. 0228 Tried calling sister Giselle Henderson patients primary contact with no answer. 0229 Tried calling patients brother Glen Childers with no response. 0240 Spoke to nurse Radha from [place] who tells me that they do not have patients molst there or wishes they were not aware she is DNR DNI do not transfer will discuss this case with the lens and frames prescription clerk provider for [facility] ). Patients neuro exam normal she has been confused a few days, and can sometimes answer simple question appears to be her baseline. Waiting for a call back. 0254 blankbook stitching machine operator provider spoke to me tells me at the facility the molst was blank therefore they transferred her. He feels as though patient should be worked up until her status is figured out. He doesnt work at the [facility] just covers call. Therefore he isnt sure of there capabilities of the facility. AI Medina 0256 Informed hospitalist about this patient I suspect she will require adission for hypoglycemia, hypothermia and urosepsis. Sign out given to Dr. Garcia pending repeat trop, and scans. Medical Decision Making MDM Narrative Medical decision making narrative: 2 81-year-old female [facility], patient was found to be not responsive. Sugar was 33, after EMS administered 50 mg of D50 blood sugar went up to 104. Physical examination significant for an 81-year-old female who appears uncomfortable, moaning in pain. Diffusely tender abdomen, regular rate and rhythm, lungs clear. Unable to obtain a full neurological examination secondary to patient's mental status. She is awake, alert and moving all extremities. Plan at this time is basic labs, blood cultures, lactic acid, head CT, CT of the chest, abdomen and pelvis, urine, COVID. Likley UTI or infection, will rule out endocrine causes, and monitor patients sugars unlikley ACS or PE. Will give a push dose of hydrocortisone incase this is endocrine in origin Due to patient's mental status, hypoglycemia, hypothermia, hypotension at this time will order blood cultures, lactic acid, basic labs. Medical Records Medical records reviewed: Yes I reviewed the patient's medical records. Lab Data Lab results reviewed: Yes I reviewed the patient's lab results. Result diagrams: 07/25/21 00:50 07/25/21 00:50 Labs: Lab Results 07/24/21 07/25/21 07/25/21 Range/Units 23:36 00:50 00:50 WBC 24.4 H (4.8-10.8) X10*3/uL RBC 3.61 L (4.20-5.50) X10*6/uL Hgb 11.6 L (12.0-16.0) g/dl Hct 34.9 L (37.0-47.0) % MCV 96.7 (80.0-98.0) fL MCH 32.1 (27.0-33.0) pg MCHC 33.2 (31.0-35.0) g/dl RDW 13.1 (11.0-16.0) % Plt Count 446 H D (160-400) X10*3/uL MPV 9.6 (9.4-12.3) fL Immature Gran % (Auto) 0.8 H (0.0-0.4) % Neut % (Auto) 86.0 H (45-73) % Lymph % (Auto) 4.0 L (20-40) % [place] % (Auto) 8.7 (2-11) % Eos % (Auto) 0.1 (0-4) % Baso % (Auto) 0.4 (0-2) % Lymph # (Auto) 1.0 L (1.2-4.9) X10*3/uL [place] # (Auto) 2.1 H (0.1-1.2) X10*3/uL Eos # (Auto) 0.0 (0.0-0.4) X10*3/uL Baso # (Auto) 0.1 (0.0-0.2) X10*3/uL Abs Immat Gran (auto) 0.19 H (0.00-0.03) X10*3/uL Absolute Neuts (auto) 21.0 H (2.0-8.3) x10*3/uL Absolute Nucleated RBC 0.000 (0.0-0.012) X10*3/uL Nucleated RBC % (auto) 0.0 (0.0-0.2) /100WBC Smear Tech's Comments VERIFIED D-Dimer High Sensitivty NG/ML Sodium 141 (135-145) mmol/L Potassium 3.5 D (3.3-5.1) mmol/L Chloride 113 H (96-108) mmol/L Carbon Dioxide 18 L (22-29) mmol/L Anion Gap 14 (12-20) BUN 30 H (9-16) mg/dL Creatinine 0.94 (0.5-1.4) mg/dL Estim Creat Clear Calc 47.9 Estimated GFR 57 POC Glucose 87 (60-115) mg/dL Random Glucose 50 L* (60-115) mg/dL Lactic Acid (0.5-2.0) mmol/L Calcium 8.7 D (8.4-10.2) mg/dL Magnesium 2.1 (1.6-2.6) mg/dL Total Bilirubin 0.4 (0.0-1.0) mg/dL AST 14 (5-31) U/L ALT 18 (0-31) U/L Alkaline Phosphatase 148 H (39-117) U/L Total Creatine Kinase 46 (26-140) U/L Troponin I High Sens (<3.5-17.0) ng/L B-Natriuretic Peptide (<100) pg/mL Total Protein 5.5 L (6.5-8.0) g/dL Albumin 3.1 L (3.5-5.0) g/dL TSH 1.68 (0.32-4.0) uIU/mL Free T4 1.38 (0.71-1.85) ng/dL Urine Color Urine Appearance Urine pH (5.0-8.0) Ur Specific [place] (1.005-1.025) Urine Protein (NEG-TRACE) MG/DL Urine Glucose (UA) (NEG) MG/DL Urine Ketones (NEG) MG/DL Urine Blood (NEG) Urine Nitrite (NEG) Ur Leukocyte Esterase (NEG) Urine RBC (0) /HPF Urine WBC (0-4) /HPF Ur Squamous Epith Cells /LPF Triple Phos Crystals /LPF Urine Bacteria /LPF Urine Mucus /LPF Salicylates < 5.0 L (15-30) mg/dL Acetaminophen 1 (<30) mcg/mL COVID-19 (MONIKA) (Negative) COVID-19 Clin Com 07/25/21 07/25/21 07/25/21 Range/Units 00:50 00:50 00:50 WBC (4.8-10.8) X10*3/uL RBC (4.20-5.50) X10*6/uL Hgb (12.0-16.0) g/dl Hct (37.0-47.0) % MCV (80.0-98.0) fL MCH (27.0-33.0) pg MCHC (31.0-35.0) g/dl RDW (11.0-16.0) % Plt Count (160-400) X10*3/uL MPV (9.4-12.3) fL Immature Gran % (Auto) (0.0-0.4) % Neut % (Auto) (45-73) % Lymph % (Auto) (20-40) % [place] % (Auto) (2-11) % Eos % (Auto) (0-4) % Baso % (Auto) (0-2) % Lymph # (Auto) (1.2-4.9) X10*3/uL [place] # (Auto) (0.1-1.2) X10*3/uL Eos # (Auto) (0.0-0.4) X10*3/uL Baso # (Auto) (0.0-0.2) X10*3/uL Abs Immat Gran (auto) (0.00-0.03) X10*3/uL Absolute Neuts (auto) (2.0-8.3) x10*3/uL Absolute Nucleated RBC (0.0-0.012) X10*3/uL Nucleated RBC % (auto) (0.0-0.2) /100WBC Smear Tech's Comments D-Dimer High Sensitivty 698 NG/ML Sodium (135-145) mmol/L Potassium (3.3-5.1) mmol/L Chloride (96-108) mmol/L Carbon Dioxide (22-29) mmol/L Anion Gap (12-20) BUN (9-16) mg/dL Creatinine (0.5-1.4) mg/dL Estim Creat Clear Calc Estimated GFR POC Glucose (60-115) mg/dL Random Glucose (60-115) mg/dL Lactic Acid 1.6 (0.5-2.0) mmol/L Calcium (8.4-10.2) mg/dL Magnesium (1.6-2.6) mg/dL Total Bilirubin (0.0-1.0) mg/dL AST (5-31) U/L ALT (0-31) U/L Alkaline Phosphatase (39-117) U/L Total Creatine Kinase (26-140) U/L Troponin I High Sens (<3.5-17.0) ng/L B-Natriuretic Peptide (<100) pg/mL Total Protein (6.5-8.0) g/dL Albumin (3.5-5.0) g/dL TSH (0.32-4.0) uIU/mL Free T4 (0.71-1.85) ng/dL Urine Color Urine Appearance Urine pH (5.0-8.0) Ur Specific [place] (1.005-1.025) Urine Protein (NEG-TRACE) MG/DL Urine Glucose (UA) (NEG) MG/DL Urine Ketones (NEG) MG/DL Urine Blood (NEG) Urine Nitrite (NEG) Ur Leukocyte Esterase (NEG) Urine RBC (0) /HPF Urine WBC (0-4) /HPF Ur Squamous Epith Cells /LPF Triple Phos Crystals /LPF Urine Bacteria /LPF Urine Mucus /LPF Salicylates (15-30) mg/dL Acetaminophen (<30) mcg/mL COVID-19 (MONIKA) Negative (Negative) COVID-19 Clin Com See Note 07/25/21 07/25/21 07/25/21 Range/Units 00:50 01:21 02:28 WBC (4.8-10.8) X10*3/uL RBC (4.20-5.50) X10*6/uL Hgb (12.0-16.0) g/dl Hct (37.0-47.0) % MCV (80.0-98.0) fL MCH (27.0-33.0) pg MCHC (31.0-35.0) g/dl RDW (11.0-16.0) % Plt Count (160-400) X10*3/uL MPV (9.4-12.3) fL Immature Gran % (Auto) (0.0-0.4) % Neut % (Auto) (45-73) % Lymph % (Auto) (20-40) % [place] % (Auto) (2-11) % Eos % (Auto) (0-4) % Baso % (Auto) (0-2) % Lymph # (Auto) (1.2-4.9) X10*3/uL [place] # (Auto) (0.1-1.2) X10*3/uL Eos # (Auto) (0.0-0.4) X10*3/uL Baso # (Auto) (0.0-0.2) X10*3/uL Abs Immat Gran (auto) (0.00-0.03) X10*3/uL Absolute Neuts (auto) (2.0-8.3) x10*3/uL Absolute Nucleated RBC (0.0-0.012) X10*3/uL Nucleated RBC % (auto) (0.0-0.2) /100WBC Smear Tech's Comments D-Dimer High Sensitivty NG/ML Sodium (135-145) mmol/L Potassium (3.3-5.1) mmol/L Chloride (96-108) mmol/L Carbon Dioxide (22-29) mmol/L Anion Gap (12-20) BUN (9-16) mg/dL Creatinine (0.5-1.4) mg/dL Estim Creat Clear Calc Estimated GFR POC Glucose 28 L* (60-115) mg/dL Random Glucose (60-115) mg/dL Lactic Acid (0.5-2.0) mmol/L Calcium (8.4-10.2) mg/dL Magnesium (1.6-2.6) mg/dL Total Bilirubin (0.0-1.0) mg/dL AST (5-31) U/L ALT (0-31) U/L Alkaline Phosphatase (39-117) U/L Total Creatine Kinase (26-140) U/L Troponin I High Sens 25.6 H (<3.5-17.0) ng/L B-Natriuretic Peptide 160 H (<100) pg/mL Total Protein (6.5-8.0) g/dL Albumin (3.5-5.0) g/dL TSH (0.32-4.0) uIU/mL Free T4 (0.71-1.85) ng/dL Urine Color BROWN A Urine Appearance TURBID Urine pH 8.5 H (5.0-8.0) Ur Specific [place] <= 1.005 (1.005-1.025) Urine Protein 3+ H (NEG-TRACE) MG/DL Urine Glucose (UA) 100 H (NEG) MG/DL Urine Ketones 5 (NEG) MG/DL Urine Blood 2+ H (NEG) Urine Nitrite POS H (NEG) Ur Leukocyte Esterase 3+ H (NEG) Urine RBC 30-49 H (0) /HPF Urine WBC 50-75 H (0-4) /HPF Ur Squamous Epith Cells 2+ /LPF Triple Phos Crystals 2+ /LPF Urine Bacteria 4+ /LPF Urine Mucus 2+ /LPF Salicylates (15-30) mg/dL Acetaminophen (<30) mcg/mL COVID-19 (MONIKA) (Negative) COVID-19 Clin Com ECG Data Attestation: I personally reviewed and interpreted this ECG as follows: Prior ECG tracings: available for review Interpretation: Ventricular rate of 61, NM normal, QRS normal, QT prolonged, no ST elevations or inversions concerning for ischemia, no significant changes when compared to EKG from June 2021. Critical Care Time Critical Care Time Critical Care Time: No Total Critical Care Time: 65 Attestation: I attest to this time spent taking care of the patient, obtaining history, physical, reviewing labs, imaging, speaking to my attending, speaking to specialist. Discharge Plan Discharge Clinical Impression: Urinary tract infection, Hypotension, Hypoglycemia, Physical deconditioning, Hypothermia Patient Disposition: Admitted As Inpatient
--- NOTE | 2021-07-24 23:25 | ECG_ITS ---
Test Reason : HYPOGLYCEMIC Blood Pressure : / mmHG Vent. Rate : 069 BPM Atrial Rate : 069 BPM P-R Int : 168 ms QRS Dur : 104 ms QT Int : 466 ms P-R-T Axes : 057 036 070 degrees QTc Int : 499 ms Normal sinus rhythm Cannot rule out Anterior infarct (cited on or before 25-JUL-2021) Nonspecific ST changes Abnormal ECG When compared with ECG of 17-JAN-2021 05:47, QT has lengthened Referred By: Sara Singh Electronically Signed By:Sahil Mulligan
--- NOTE | 2021-07-24 23:35 | PC.NURSE ---
pt alert and oriented to self, hypotensive, rectal temp 95.6F, other vss, IVF started. pt changed - soiled brief. pt c/o right hip/ankle/foot pain 10/07.
[2021-07-24 23:37] VITALS: BP 118/46; PULSE 75; RESP 18; TEMP 35.3; O2SAT 98
[2021-07-24 23:41] LABS: Glucose, Whole Blood 87 mg/dL (60-115)
[2021-07-24] MEDS: 0.9 % Sodium Chloride 1,000 ML 999 ML IV (23:45)
[2021-07-25] VITALS (11 sets, daily range): BP systolic 102–185; BP diastolic 42–94; PULSE 61–95; RESP 14–25; TEMP 34.5–37.2; O2SAT 96–100
[2021-07-25 01:01] LABS: Basophils Absolute Auto 0.1 X10*3/uL (0.0-0.2); Basophils Percent Auto 0.4 % (0-2); Eosinophils Percent Auto 0.1 % (0-4); Hematocrit 34.9 % (37.0-47.0); Hemoglobin 11.6 g/dl (12.0-16.0); Imm Gran Abs Auto 0.19 X10*3/uL (0.00-0.03); Imm Gran Pct Auto 0.8 % (0.0-0.4); MANUAL DIFF FLAG SCAN; Mean Corpuscular HGB Conc 33.2 g/dl (31.0-35.0); Mean Corpuscular Hemoglobin 32.1 pg (27.0-33.0); Mean Corpuscular Volume 96.7 fL (80.0-98.0); Mean Platelet Volume 9.6 fL (9.4-12.3); Monocytes Absolute Auto 2.1 X10*3/uL (0.1-1.2); Monocytes Percent Auto 8.7 % (2-11); Platelet Count 446 X10*3/uL (160-400); Red Blood Count 3.61 X10*6/uL (4.20-5.50); Red Cell Distribution Width 13.1 % (11.0-16.0); SCAN SMEAR FLAG 1; White Blood Count 24.4 X10*3/uL (4.8-10.8)
[2021-07-25 01:09] LABS: SLIDE REVIEW VERIFIED
[2021-07-25 01:13] LABS: Lactic Acid 1.6 mmol/L (0.5-2.0)
[2021-07-25 01:15] LABS: COVID-19 Test Negative (Negative)
[2021-07-25 01:16] LABS: D Dimer High Sensitivity 698 NG/ML
[2021-07-25 01:24] LABS: B Type Natriuretic Peptide 160 pg/mL (<100); Troponin-I High Sensitivity 25.6 ng/L (<3.5-17.0)
[2021-07-25 01:26] LABS: Glucose, Whole Blood 28 mg/dL (60-115)
--- NOTE | 2021-07-25 01:27 | ECG_ITS ---
Test Reason : REPEAT Blood Pressure : / mmHG Vent. Rate : 061 BPM Atrial Rate : 061 BPM P-R Int : 160 ms QRS Dur : 106 ms QT Int : 518 ms P-R-T Axes : 089 063 092 degrees QTc Int : 521 ms Normal sinus rhythm Nonspecific ST abnormality Prolonged QT Abnormal ECG When compared with ECG of 25-JUL-2021 00:17, Minimal criteria for Anterior infarct are no longer Present Referred By: Sara Singh Electronically Signed By:Sahil Mulligan
[2021-07-25 01:29] LABS: Acetaminophen LAB 1 mcg/mL (<30); Alanine Aminotransferase 18 U/L (0-31); Albumin Level 3.1 g/dL (3.5-5.0); Alkaline Phosphatase 148 U/L (39-117); Anion Gap 14 (12-20); Aspartate Amino Transferase 14 U/L (5-31); Bilirubin Total 0.4 mg/dL (0.0-1.0); Blood Urea Nitrogen 30 mg/dL (9-16); Calcium 8.7 mg/dL (8.4-10.2); Carbon Dioxide 18 mmol/L (22-29); Chloride 113 mmol/L (96-108); Creatinine Clr Calc Pharmacy 47.9; Estimated Glomerular Filt Rate 57; Glucose Random 50 mg/dL (60-115); Magnesium 2.1 mg/dL (1.6-2.6); Potassium 3.5 mmol/L (3.3-5.1); Salicylate < 5.0 mg/dL (15-30); Sodium 141 mmol/L (135-145); Total Protein 5.5 g/dL (6.5-8.0)
[2021-07-25] MEDS: Glucose Gel 15 GM GEL..GRAM. PO (01:34)
[2021-07-25] MEDS: cefTRIAXone sodium 1 GM in 0.9 % Sodium Chloride 50 ML IV (01:45)
[2021-07-25] MEDS: Dextrose 50 % 25 GM/50 ML SYRINGE IVPUSH ×2 (01:46)
--- NOTE | 2021-07-25 01:54 | PC.NURSE ---
Call SNF to discuss why pt was transfer due to pt being DNR/DNI do not transfer except for comfort. Pt last point of care was at 4pm 138 at the facility. Pt was given 52 of Lantus during the evening unknown time.
[2021-07-25 02:05] LABS: Free T4 (Free Thyroxine) 1.38 ng/dL (0.71-1.85); Thyroid Stimulating Hormone 1.68 uIU/mL (0.32-4.0)
--- NOTE | 2021-07-25 02:46 | PC.NURSE ---
pt straight cath'ed and urine sample obtained. urine dark brown/red with thick mucus and blood clots - foul odor. pt to CT.
[2021-07-25 02:54] LABS: Appearance Urine TURBID; Glucose Urine UA 100 MG/DL (NEG); Nitrite Urine POS (NEG); PH 8.5 (5.0-8.0); Specific Gravity - Urine <= 1.005 (1.005-1.025); UACC Culture Trigger YES; Urine Blood 2+ (NEG); Urine Ketones 5 MG/DL (NEG)
[2021-07-25 02:55] LABS: Leukocyte Esterase Urine 3+ (NEG); Urine Protein 3+ MG/DL (NEG-TRACE)
[2021-07-25 02:56] LABS: Color Urine BROWN
[2021-07-25 02:57] LABS: Bacteria Urine 4+ /LPF; Mucus Urine 2+ /LPF; RBC Urine 30-49 /HPF (0); Squamous Epithelial Cell Urine 2+ /LPF; Triple Phosphate Crystal Urine 2+ /LPF; WBC Urine 50-75 /HPF (0-4)
[2021-07-25] MEDS: Hydrocortisone Sod Succ/PF 100 MG VIAL IVPUSH (02:58)
[2021-07-25] MEDS: Dextrose 5 % and 0.9 % NaCl 1,000 ML 125 ML IVCONT (02:58)
[2021-07-25] MEDS: Dextrose 5 % and 0.9 % NaCl 1,000 ML 100 ML IVCONT ×2 (03:18→14:44)
--- NOTE | 2021-07-25 03:23 | PC.NURSE ---
poc 189 reported to provider.
[2021-07-25 03:35] LABS: Glucose, Whole Blood 182 mg/dL (60-115)
--- NOTE | 2021-07-25 03:35 | PC.NURSE ---
D5NS running @ 100ml/hr per hospitalist order. temp 94.1F, hypotensive, other vss.
[2021-07-25 06:53] LABS: Troponin-I High Sensitivity 33.8 ng/L (<3.5-17.0)
--- NOTE | 2021-07-25 07:28 | PHA.MEDREC ---
Pharmacy Consult ? Medication Reconciliation Pharmacy has reviewed the medication reconciliation completed by Jackeline.
--- NOTE | 2021-07-25 07:43 | PC.NURSE ---
PT AWAKE, MOUTH CARE PROVIDED AND WATER GIVEN. SHE IS CONVERSATIONAL AND PLEASANT. IV FLUIDS INFUSING. ARÚL VO D/C. SHE REPORTS RIGHT FOOT PAIN, HEEL BOOTS IN PLACE BILATERALLY, FROM SNF. AWAITING ADMISSION
[2021-07-25 07:54] LABS: Glucose, Whole Blood 130 mg/dL (60-115)
[2021-07-25 07:54] LABS: Glucose, Whole Blood 135 mg/dL (60-115)
--- NOTE | 2021-07-25 07:58 | PM.IMHP ---
History of Present Illness Date of Service: 07/25/21 Chief Complaint: ams history provided by ED physician through EMS reports and SNF. 81F presented from SNF with ams and hypoglycemia. she was unresponsive at facility which she was at for left hip fracture from dec 2020 that was non operable. EMS gave D50 which improved patient's mental status. in ED UA grossly positive, patient hypothermic, leukocytosis. CT showed left femoral fracture with new component at base of greater trochanter acuity unclear. there is no reported history of recent fall. Review of Systems Review of Systems: Yes Unobtainable due to mental condition [facility] Medical History CVA (cerebral vascular accident) Depression Diabetes HTN (hypertension) Macular degeneration Pertinent family history: unable to obtain Surgical History No pertinent past surgical history Social History Household Members: Family Housing: House Patient Tobacco Use Status: Never used Tobacco Use of substances other than those prescribed or required for medical reasons: No Advance Directives: No Advance Directives Information Provided: No service: No Current occupational status: retired Meds Allergies Allergy/AdvReac Type Severity Reaction Status Date / Time No Known Allergies Allergy Unverified 11/15/19 16:31 Active Medications: Current Medications Atorvastatin Calcium (Atorvastatin Calcium 10 Mg Tablet) 10 mg PO BEDTIME DAVE Bupropion HCl (Bupropion Hcl 75 Mg Tablet) 75 mg PO BID DAVE Clopidogrel Bisulfate (Clopidogrel Bisulfate 75 Mg Tablet) 75 mg PO DAILY [facility] Dextrose (Dextrose 50 % 25 Gm/50 Ml Syringe) 25 gm IVPUSH Q15M PRN; Protocol PRN Reason: per Hypoglycemia Standing Ord. Famotidine (Famotidine 20 Mg Tablet) 20 mg PO BID DAVE Fluoxetine HCl (Fluoxetine Hcl 20 Mg Capsule) 40 mg PO DAILY [facility] Glucose (Glucose Gel 15 Gm Gel..Gram.) 15 gm PO Q15M PRN; Protocol PRN Reason: per Hypoglycemia Standing Ord. Dextrose/Sodium Chloride (D5ns) 1,000 mls @ 100 mls/hr IVCONT .Q10H DAVE Last Admin: 07/25/21 03:18 Dose: 100 mls/hr Documented by: Ceftriaxone Sodium 1 gm/ (Sodium Chloride) 50 mls @ 100 mls/hr IV Q24H [facility] Insulin Human Lispro (Insulin Lispro 100 Unit/Ml 3 Ml Vial) 0 unit SUBCUT QIDACHS DAVE; Protocol Metoprolol Succinate (Metoprolol Succinate Er 25 Mg Tab.Er.24h) 25 mg PO DAILY DAVE; Protocol Pharmacy Consult (Consult Rx Perform Med Rec) 1 each MISCELLANE ONCE PRN PRN Reason: Consult order Home Medications Medication Instructions Recorded Confirmed Last Taken Type amlodipine 10 mg tablet 1 tab PO DAILY 01/17/21 07/25/21 Unknown History clopidogrel 75 mg tablet 1 tab PO DAILY 01/17/21 07/25/21 Unknown History famotidine 20 mg tablet 1 tab PO BID 01/17/21 07/25/21 Unknown History fluoxetine 40 mg capsule 1 cap PO DAILY 01/17/21 07/25/21 Unknown History insulin glargine 100 unit/mL (3 56 unit SUBCUT BEDTIME 01/17/21 07/25/21 Unknown History mL) subcutaneous pen (Lantus Solostar U-100 Insulin) losartan 50 mg tablet 1 tab PO DAILY 01/17/21 07/25/21 Unknown History metoprolol succinate 25 mg 1 tab PO DAILY 01/17/21 07/25/21 Unknown History tablet,extended release 24 hr simvastatin 20 mg tablet 1 tab PO BEDTIME 01/17/21 07/25/21 Unknown History spironolactone 25 mg tablet 1 tab PO DAILY 01/17/21 07/25/21 Unknown History bupropion HCl 75 mg tablet 1 tab PO BID 07/25/21 07/25/21 Unknown History cefuroxime axetil 250 mg tablet 1 tab PO BID 07/25/21 07/25/21 Unknown History insulin lispro 100 unit/mL 5 unit SUBCUT TID 07/25/21 07/25/21 Unknown History subcutaneous pen Physical Exam Vital Signs and Narrative: Vital Signs: Last Vital Signs Temp 98.9 F 07/25/21 07:43 Pulse 83 07/25/21 07:43 Resp 16 07/25/21 07:43 BP 144/50 H 07/25/21 07:43 Pulse Ox 97 07/25/21 07:43 BMI result Body Mass Index 33.5 General: in pain HEENT: atraumatic Neck: normal to visual inspection CVS: S1, S2, RRR, murmur Resp: CTA bilateral Chest: non tender GI: soft, non tender, non distended : no CVA tenderness Skin: no rashes Extremities: no edema Neuro: Oriented X1, contracted Psych: impaired insight Results Labs CBC and Chem 7: 07/25/21 00:50 07/25/21 00:50 Labs: Laboratory Results - last 24 hr 07/24/21 07/25/21 07/25/21 23:36 00:50 00:50 MCV 96.7 MCH 32.1 MCHC 33.2 RDW 13.1 Plt Count 446 H D MPV 9.6 Immature Gran % (Auto) 0.8 H Neut % (Auto) 86.0 H Lymph % (Auto) 4.0 L [place] % (Auto) 8.7 Eos % (Auto) 0.1 Baso % (Auto) 0.4 Lymph # (Auto) 1.0 L [place] # (Auto) 2.1 H Eos # (Auto) 0.0 Baso # (Auto) 0.1 Abs Immat Gran (auto) 0.19 H Absolute Neuts (auto) 21.0 H Absolute Nucleated RBC 0.000 Nucleated RBC % (auto) 0.0 Smear Tech's Comments VERIFIED D-Dimer High Sensitivty Anion Gap 14 Estim Creat Clear Calc 47.9 Estimated GFR 57 POC Glucose 87 Random Glucose 50 L* Lactic Acid Calcium 8.7 D Magnesium 2.1 Total Bilirubin 0.4 AST 14 ALT 18 Alkaline Phosphatase 148 H Total Creatine Kinase 46 Troponin I High Sens B-Natriuretic Peptide Total Protein 5.5 L Albumin 3.1 L TSH 1.68 Free T4 1.38 Urine Color Urine Appearance Urine pH Ur Specific [place] Urine Protein Urine Glucose (UA) Urine Ketones Urine Blood Urine Nitrite Ur Leukocyte Esterase Urine RBC Urine WBC Ur Squamous Epith Cells Triple Phos Crystals Urine Bacteria Urine Mucus Salicylates < 5.0 L Acetaminophen 1 COVID-19 (MONIKA) COVID-19 Clin Com 07/25/21 07/25/21 07/25/21 00:50 00:50 00:50 MCV MCH MCHC RDW Plt Count MPV Immature Gran % (Auto) Neut % (Auto) Lymph % (Auto) [place] % (Auto) Eos % (Auto) Baso % (Auto) Lymph # (Auto) Hopkins # (Auto) Eos # (Auto) Baso # (Auto) Abs Immat Gran (auto) Absolute Neuts (auto) Absolute Nucleated RBC Nucleated RBC % (auto) Smear Tech's Comments D-Dimer High Sensitivty 698 Anion Gap Estim Creat Clear Calc Estimated GFR POC Glucose Random Glucose Lactic Acid 1.6 Calcium Magnesium Total Bilirubin AST ALT Alkaline Phosphatase Total Creatine Kinase Troponin I High Sens B-Natriuretic Peptide Total Protein Albumin TSH Free T4 Urine Color Urine Appearance Urine pH Ur Specific [place] Urine Protein Urine Glucose (UA) Urine Ketones Urine Blood Urine Nitrite Ur Leukocyte Esterase Urine RBC Urine WBC Ur Squamous Epith Cells Triple Phos Crystals Urine Bacteria Urine Mucus Salicylates Acetaminophen COVID-19 (MONIKA) Negative COVID-19 [employer] Com See Note 07/25/21 07/25/21 07/25/21 00:50 01:21 02:28 MCV MCH MCHC RDW Plt Count MPV Immature Gran % (Auto) Neut % (Auto) Lymph % (Auto) [place] % (Auto) Eos % (Auto) Baso % (Auto) Lymph # (Auto) [place] # (Auto) Eos # (Auto) Baso # (Auto) Abs Immat Gran (auto) Absolute Neuts (auto) Absolute Nucleated RBC Nucleated RBC % (auto) Smear Tech's Comments D-Dimer High Sensitivty Anion Gap Estim Creat Clear Calc Estimated GFR POC Glucose 28 L* Random Glucose Lactic Acid Calcium Magnesium Total Bilirubin AST ALT Alkaline Phosphatase Total Creatine Kinase Troponin I High Sens 25.6 H B-Natriuretic Peptide 160 H Total Protein Albumin TSH Free T4 Urine Color BROWN A Urine Appearance TURBID Urine pH 8.5 H Ur Specific [place] <= 1.005 Urine Protein 3+ H Urine Glucose (UA) 100 H Urine Ketones 5 Urine Blood 2+ H Urine Nitrite POS H Ur Leukocyte Esterase 3+ H Urine RBC 30-49 H Urine WBC 50-75 H Ur Squamous Epith Cells 2+ Triple Phos Crystals 2+ Urine Bacteria 4+ Urine Mucus 2+ Salicylates Acetaminophen COVID-19 (MONIKA) COVID-19 [employer] 07/25/21 07/25/21 07/25/21 03:21 05:21 06:28 MCV MCH MCHC RDW Plt Count MPV Immature Gran % (Auto) Neut % (Auto) Lymph % (Auto) [place] % (Auto) Eos % (Auto) Baso % (Auto) Lymph # (Auto) [place] # (Auto) Eos # (Auto) Baso # (Auto) Abs Immat Gran (auto) Absolute Neuts (auto) Absolute Nucleated RBC Nucleated RBC % (auto) Smear Tech's Comments D-Dimer High Sensitivty Anion Gap Estim Creat Clear Calc Estimated GFR POC Glucose 182 H 130 H Random Glucose Lactic Acid Calcium Magnesium Total Bilirubin AST ALT Alkaline Phosphatase Total Creatine Kinase Troponin I High Sens 33.8 H B-Natriuretic Peptide Total Protein Albumin TSH Free T4 Urine Color Urine Appearance Urine pH Ur Specific [place] Urine Protein Urine Glucose (UA) Urine Ketones Urine Blood Urine Nitrite Ur Leukocyte Esterase Urine RBC Urine WBC Ur Squamous Epith Cells Triple Phos Crystals Urine Bacteria Urine Mucus Salicylates Acetaminophen COVID-19 (MONIKA) COVID-19 [employer] Com 07/25/21 07:51 MCV MCH MCHC RDW Plt Count MPV Immature Gran % (Auto) Neut % (Auto) Lymph % (Auto) [place] % (Auto) Eos % (Auto) Baso % (Auto) Lymph # (Auto) [place] # (Auto) Eos # (Auto) Baso # (Auto) Abs Immat Gran (auto) Absolute Neuts (auto) Absolute Nucleated RBC Nucleated RBC % (auto) Smear Tech's Comments D-Dimer High Sensitivty Anion Gap Estim Creat Clear Calc Estimated GFR POC Glucose 135 H Random Glucose Lactic Acid Calcium Magnesium Total Bilirubin AST ALT Alkaline Phosphatase Total Creatine Kinase Troponin I High Sens B-Natriuretic Peptide Total Protein Albumin TSH Free T4 Urine Color Urine Appearance Urine pH Ur Specific [place] Urine Protein Urine Glucose (UA) Urine Ketones Urine Blood Urine Nitrite Ur Leukocyte Esterase Urine RBC Urine WBC Ur Squamous Epith Cells Triple Phos Crystals Urine Bacteria Urine Mucus Salicylates Acetaminophen COVID-19 (MONIKA) COVID-19 Clin Com Imaging Radiologist's Impressions: Impressions Cervical Spine CT 07/25/21 03:00 IMPRESSION: 1. Head: Limited evaluation in some regions due to motion artifact. No acute findings identified. 2. Cervical spine: No acute findings identified. Redemonstrated degenerative changes. Head CT 07/25/21 03:00 IMPRESSION: 1. Head: Limited evaluation in some regions due to motion artifact. No acute findings identified. 2. Cervical spine: No acute findings identified. Redemonstrated degenerative changes. Abdomen/Pelvis CT 07/25/21 03:02 IMPRESSION: 1. Comminuted, impacted fracture of the left femoral neck and trochanteric region. 2. Mild regions of pulmonary groundglass opacity in the posterior right upper lobe and basilar right lower lobe, which could be due to atelectasis or possibly mild inflammatory/infectious change. Chest CT 07/25/21 03:03 IMPRESSION: 1. Comminuted, impacted fracture of the left femoral neck and trochanteric region. 2. Mild regions of pulmonary groundglass opacity in the posterior right upper lobe and basilar right lower lobe, which could be due to atelectasis or possibly mild inflammatory/infectious change. Assessment and Plan (1) Urinary tract infection: Status: Acute Plan 81F presented with ams metabolic encephalopathy due to DM with hypoglycemia D5NS, insulin sliding scale only for now, monitor pocs, mental status appears to have gone back to baseline sepsis present on arrival due to UTI rocephin, cultures left hip fracture from dec 2020, with possible acute component in greater trochanter [facility] ortho eval htn will hold antihypertensives for now while septic history of cva plavix, statin dvt prophylaxis - lovenox dnr/dni patient with sepsis and metabolic abnormalities, high risk due to frailty and advanced age, therefore, likely to require atleast 2 midnights in hospital Quality Stroke Does the patient have a stroke diagnosis?: No VTE Prior VTE?: No VTE Risk Level:: Medical - moderate - high VTE Device Contraindication: Treatment Not Indicated VTE Drug Contraindication: N/A - Med Ordered
--- NOTE | 2021-07-25 09:22 | P.CONOP_ITS ---
History of Present Illness HPI Consult date: 07/25/21 Chief complaint: AMS Narrative: Ms. Childers is a an 81-year-old female who presents to the emergency department from [facility] the rehab. Most of the HPI was obtained from the emergency department notes. According to those notes the patient presented to the ER from the nursing facility with a glucose level of 33. At the facility the patient was nonresponsive prompting her emergency department visit. She has a past medical history significant for diabetes, CVA with baseline aphasia, and hypertension. CT obtained of the pelvis was significant for old femoral neck fracture which was noted from a previous exam on 01/16/2021 but is unchanged. There is a new acute versus subacute fracture through the base of the greater trochanter. Therefore, Orthopedics was consulted for further evaluation and treatment. Of note the orthopedic team was consulted on this patient when she fell 12/2020. After speaking with the family at that time it was understood that the patient is nonambulatory and only pivoted for transfers. Therefore, the patient would not have benefited from surgical intervention at that time for hip fracture which was discussed and decided with family. Review of Systems Review of Systems: Yes all other systems are reviewed and are negative [facility] Past Medical History Medical History CVA (cerebral vascular accident) Depression Diabetes HTN (hypertension) Macular degeneration Surgical History Surgical History No pertinent past surgical history Social History Social History Household Members: Family Housing: House Patient Tobacco Use Status: Never used Tobacco Use of substances other than those prescribed or required for medical reasons: No Advance Directives: No Advance Directives Information Provided: No service: No Current occupational status: retired Meds Allergies Allergy/AdvReac Type Severity Reaction Status Date / Time No Known Allergies Allergy Unverified 11/15/19 16:31 Active Medications: Current Medications Acetaminophen (Acetaminophen 325 Mg Tablet) 650 mg PO Q6H PRN PRN Reason: Pain, Mild (Pain Scale 1-3) Atorvastatin Calcium (Atorvastatin Calcium 10 Mg Tablet) 10 mg PO BEDTIME [facility] Bupropion HCl (Bupropion Hcl 75 Mg Tablet) 75 mg PO BID [facility] Clopidogrel Bisulfate (Clopidogrel Bisulfate 75 Mg Tablet) 75 mg PO DAILY [facility] Dextrose (Dextrose 50 % 25 Gm/50 Ml Syringe) 25 gm IVPUSH Q15M PRN; Protocol PRN Reason: per Hypoglycemia Standing Ord. Enoxaparin Sodium (Enoxaparin Sodium 40 Mg/0.4 Ml Syringe) 40 mg SUBCUT Q24H [facility] Famotidine (Famotidine 20 Mg Tablet) 20 mg PO BID [facility] Fluoxetine HCl (Fluoxetine Hcl 20 Mg Capsule) 40 mg PO DAILY [facility] Glucose (Glucose Gel 15 Gm Gel..Gram.) 15 gm PO Q15M PRN; Protocol PRN Reason: per Hypoglycemia Standing Ord. Dextrose/Sodium Chloride (D5ns) 1,000 mls @ 100 mls/hr IVCONT .Q10H [facility] Last Admin: 07/25/21 03:18 Dose: 100 mls/hr Documented by: Ceftriaxone Sodium 1 gm/ (Sodium Chloride) 50 mls @ 100 mls/hr IV Q24H [facility] Insulin Human Lispro (Insulin Lispro 100 Unit/Ml 3 Ml Vial) 0 unit SUBCUT QIDACHS [facility]; Protocol Metoprolol Succinate (Metoprolol Succinate Er 25 Mg Tab.Er.24h) 25 mg PO DAILY [facility]; Protocol Pharmacy Consult (Consult Rx Perform Med Rec) 1 each MISCELLANE ONCE PRN PRN Reason: Consult order Sodium Chloride (0.9 % Sodium Chloride Flush 3 Ml Syringe) 3 ml IVFLUSH QSHIFT [facility] Home Medications Medication Instructions Recorded Confirmed Last Taken Type amlodipine 10 mg tablet 1 tab PO DAILY 01/17/21 07/25/21 Unknown History clopidogrel 75 mg tablet 1 tab PO DAILY 01/17/21 07/25/21 Unknown History famotidine 20 mg tablet 1 tab PO BID 01/17/21 07/25/21 Unknown History fluoxetine 40 mg capsule 1 cap PO DAILY 01/17/21 07/25/21 Unknown History insulin glargine 100 unit/mL (3 56 unit SUBCUT BEDTIME 01/17/21 07/25/21 Unknown History mL) subcutaneous pen (Lantus Solostar U-100 Insulin) losartan 50 mg tablet 1 tab PO DAILY 01/17/21 07/25/21 Unknown History metoprolol succinate 25 mg 1 tab PO DAILY 01/17/21 07/25/21 Unknown History tablet,extended release 24 hr simvastatin 20 mg tablet 1 tab PO BEDTIME 01/17/21 07/25/21 Unknown History spironolactone 25 mg tablet 1 tab PO DAILY 01/17/21 07/25/21 Unknown History bupropion HCl 75 mg tablet 1 tab PO BID 07/25/21 07/25/21 Unknown History cefuroxime axetil 250 mg tablet 1 tab PO BID 07/25/21 07/25/21 Unknown History insulin lispro 100 unit/mL 5 unit SUBCUT TID 07/25/21 07/25/21 Unknown History subcutaneous pen Physical Exam Vital Signs: Vital Signs: Last Vital Signs Temp 98.9 F 07/25/21 07:43 Pulse 80 07/25/21 08:48 Resp 17 07/25/21 08:48 BP 142/49 H 07/25/21 08:48 Pulse Ox 98 07/25/21 08:48 BMI result Body Mass Index 33.5 Extrem: Other: Left hip skin is normal to inspection. No ecchymosis, erythema, or edema. Pa tient will not allow for any further examination. Results Labs Result Diagrams: 07/25/21 00:50 07/25/21 00:50 Labs: Abnormal lab results 07/25/21 07/25/21 07/25/21 Range/Units 00:50 00:50 00:50 WBC 24.4 H (4.8-10.8) X10*3/uL RBC 3.61 L (4.20-5.50) X10*6/uL Hgb 11.6 L (12.0-16.0) g/dl Hct 34.9 L (37.0-47.0) % Plt Count 446 H D (160-400) X10*3/uL Immature Gran % (Auto) 0.8 H (0.0-0.4) % Neut % (Auto) 86.0 H (45-73) % Lymph % (Auto) 4.0 L (20-40) % Lymph # (Auto) 1.0 L (1.2-4.9) X10*3/uL [place] # (Auto) 2.1 H (0.1-1.2) X10*3/uL Abs Immat Gran (auto) 0.19 H (0.00-0.03) X10*3/uL Absolute Neuts (auto) 21.0 H (2.0-8.3) x10*3/uL Chloride 113 H (96-108) mmol/L Carbon Dioxide 18 L (22-29) mmol/L BUN 30 H (9-16) mg/dL POC Glucose (60-115) mg/dL Random Glucose 50 L* (60-115) mg/dL Alkaline Phosphatase 148 H (39-117) U/L Troponin I High Sens 25.6 H (<3.5-17.0) ng/L B-Natriuretic Peptide 160 H (<100) pg/mL Total Protein 5.5 L (6.5-8.0) g/dL Albumin 3.1 L (3.5-5.0) g/dL Urine Color Urine pH (5.0-8.0) Urine Protein (NEG-TRACE) MG/DL Urine Glucose (UA) (NEG) MG/DL Urine Blood (NEG) Urine Nitrite (NEG) Ur Leukocyte Esterase (NEG) Urine RBC (0) /HPF Urine WBC (0-4) /HPF Salicylates < 5.0 L (15-30) mg/dL 07/25/21 07/25/21 07/25/21 Range/Units 01:21 02:28 03:21 WBC (4.8-10.8) X10*3/uL RBC (4.20-5.50) X10*6/uL Hgb (12.0-16.0) g/dl Hct (37.0-47.0) % Plt Count (160-400) X10*3/uL Immature Gran % (Auto) (0.0-0.4) % Neut % (Auto) (45-73) % Lymph % (Auto) (20-40) % Lymph # (Auto) (1.2-4.9) X10*3/uL [place] # (Auto) (0.1-1.2) X10*3/uL Abs Immat Gran (auto) (0.00-0.03) X10*3/uL Absolute Neuts (auto) (2.0-8.3) x10*3/uL Chloride (96-108) mmol/L Carbon Dioxide (22-29) mmol/L BUN (9-16) mg/dL POC Glucose 28 L* 182 H (60-115) mg/dL Random Glucose (60-115) mg/dL Alkaline Phosphatase (39-117) U/L Troponin I High Sens (<3.5-17.0) ng/L B-Natriuretic Peptide (<100) pg/mL Total Protein (6.5-8.0) g/dL Albumin (3.5-5.0) g/dL Urine Color BROWN A Urine pH 8.5 H (5.0-8.0) Urine Protein 3+ H (NEG-TRACE) MG/DL Urine Glucose (UA) 100 H (NEG) MG/DL Urine Blood 2+ H (NEG) Urine Nitrite POS H (NEG) Ur Leukocyte Esterase 3+ H (NEG) Urine RBC 30-49 H (0) /HPF Urine WBC 50-75 H (0-4) /HPF Salicylates (15-30) mg/dL 07/25/21 07/25/21 07/25/21 Range/Units 05:21 06:28 07:51 WBC (4.8-10.8) X10*3/uL RBC (4.20-5.50) X10*6/uL Hgb (12.0-16.0) g/dl Hct (37.0-47.0) % Plt Count (160-400) X10*3/uL Immature Gran % (Auto) (0.0-0.4) % Neut % (Auto) (45-73) % Lymph % (Auto) (20-40) % Lymph # (Auto) (1.2-4.9) X10*3/uL [place] # (Auto) (0.1-1.2) X10*3/uL Abs Immat Gran (auto) (0.00-0.03) X10*3/uL Absolute Neuts (auto) (2.0-8.3) x10*3/uL Chloride (96-108) mmol/L Carbon Dioxide (22-29) mmol/L BUN (9-16) mg/dL POC Glucose 130 H 135 H (60-115) mg/dL Random Glucose (60-115) mg/dL Alkaline Phosphatase (39-117) U/L Troponin I High Sens 33.8 H (<3.5-17.0) ng/L B-Natriuretic Peptide (<100) pg/mL Total Protein (6.5-8.0) g/dL Albumin (3.5-5.0) g/dL Urine Color Urine pH (5.0-8.0) Urine Protein (NEG-TRACE) MG/DL Urine Glucose (UA) (NEG) MG/DL Urine Blood (NEG) Urine Nitrite (NEG) Ur Leukocyte Esterase (NEG) Urine RBC (0) /HPF Urine WBC (0-4) /HPF Salicylates (15-30) mg/dL H & H 07/25/21 Range/Units 00:50 Hgb 11.6 L (12.0-16.0) g/dl Hct 34.9 L (37.0-47.0) % All other labs normal. Assessment and Plan (1) Urinary tract infection: Status: Acute (2) Hypotension: Status: Acute (3) Hypoglycemia: Status: Acute (4) Physical deconditioning: Status: Acute (5) Fracture of greater trochanter of left femur: Status: Acute Ms. Childers is a an 81-year-old female who presents to the emergency department from [facility] the rehab. Most of the HPI was obtained from the emergency department notes. According to those notes the patient presented to the ER from the nursing facility with a glucose level of 33. At the facility the patient was nonresponsive prompting her emergency department visit. She has a past medical history significant for diabetes, CVA with baseline aphasia, and hypertension. CT obtained of the pelvis was significant for old femoral neck fracture which was noted from a previous exam on 01/16/2021 but is unchanged. There is a new acute versus subacute fracture through the base of the greater trochanter. Therefore, Orthopedics was consulted for further evaluation and treatment. Of note the orthopedic team was consulted on this patient when she fell 12/2020. After speaking with the family at that time it was understood that the patient is nonambulatory and only pivoted for transfers. Therefore, the patient would not have benefited from surgical intervention at that time for hip fracture which was discussed and decided with family. X-rays of the left hip reveals an acute greater trochanteric hip fracture. However, with the patient being nonambulatory there is no need for further orthopedic intervention. Procedures Date of Service Date of Service: 07/25/21
[2021-07-25] MEDS: Famotidine 20 MG TABLET PO ×2 (10:29→20:57)
[2021-07-25] MEDS: Clopidogrel Bisulfate 75 MG TABLET PO (10:29)
[2021-07-25] MEDS: Enoxaparin Sodium 40 MG/0.4 ML SYRINGE SUBCUT (10:29)
[2021-07-25] MEDS: Metoprolol Succinate ER 25 MG TAB.ER.24H PO (10:29)
[2021-07-25] MEDS: FLUoxetine HCl 20 MG CAPSULE 40 MG PO (10:29)
[2021-07-25] MEDS: buPROPion HCL 75 MG TABLET PO ×2 (12:59→22:04)
--- NOTE | 2021-07-25 13:45 | PC.NURSE ---
pt sitting up eating lunch
[2021-07-25 14:24] LABS: Glucose, Whole Blood 154 mg/dL (60-115)
[2021-07-25 14:28] LABS: Glucose, Whole Blood 146 mg/dL (60-115)
[2021-07-25 17:16] LABS: Glucose, Whole Blood 256 mg/dL (60-115)
[2021-07-25 19:42] LABS: Glucose, Whole Blood 273 mg/dL (60-115)
[2021-07-25 20:19] LABS: Glucose, Whole Blood 269 mg/dL (60-115)
[2021-07-25] MEDS: Insulin Lispro 100 UNIT/ML 3 ML VIAL SUBCUT (20:46)
[2021-07-25] MEDS: Atorvastatin Calcium 10 MG TABLET PO (20:57)
[2021-07-26] MEDS: Dextrose 5 % and 0.9 % NaCl 1,000 ML 100 ML IVCONT (00:02)
[2021-07-26 01:38] VITALS: BP 112/46; PULSE 76; RESP 17; TEMP 36.8; O2SAT 98
[2021-07-26] MEDS: cefTRIAXone sodium 1 GM in 0.9 % Sodium Chloride 50 ML IV (02:33)
[2021-07-26 07:23] LABS: Hematocrit 35.6 % (37.0-47.0); Hemoglobin 11.3 g/dl (12.0-16.0); Mean Corpuscular HGB Conc 31.7 g/dl (31.0-35.0); Mean Corpuscular Hemoglobin 31.7 pg (27.0-33.0); Mean Corpuscular Volume 99.7 fL (80.0-98.0); Mean Platelet Volume 10.5 fL (9.4-12.3); Platelet Count 405 X10*3/uL (160-400); Red Blood Count 3.57 X10*6/uL (4.20-5.50); Red Cell Distribution Width 13.4 % (11.0-16.0); White Blood Count 13.2 X10*3/uL (4.8-10.8)
[2021-07-26 07:37] LABS: Glucose, Whole Blood 200 mg/dL (60-115)
[2021-07-26 07:50] VITALS: BP 115/48; PULSE 76; RESP 18; TEMP 36.8; O2SAT 98
[2021-07-26] MEDS: Clopidogrel Bisulfate 75 MG TABLET PO (08:43)
[2021-07-26] MEDS: Metoprolol Succinate ER 25 MG TAB.ER.24H PO (08:43)
[2021-07-26] MEDS: buPROPion HCL 75 MG TABLET PO ×2 (08:43→21:46)
[2021-07-26] MEDS: Insulin Lispro 100 UNIT/ML 3 ML VIAL SUBCUT ×4 (08:44→21:56)
[2021-07-26] MEDS: FLUoxetine HCl 20 MG CAPSULE 40 MG PO (08:44)
[2021-07-26] MEDS: Famotidine 20 MG TABLET PO ×2 (08:44→21:46)
[2021-07-26] MEDS: Enoxaparin Sodium 40 MG/0.4 ML SYRINGE SUBCUT (08:44)
[2021-07-26] MEDS: 0.9 % Sodium Chloride Flush 3 ML SYRINGE IVFLUSH ×2 (08:45→17:24)
[2021-07-26 08:47] LABS: Anion Gap 15 (12-20); Blood Urea Nitrogen 27 mg/dL (9-16); Calcium 8.4 mg/dL (8.4-10.2); Carbon Dioxide 13 mmol/L (22-29); Chloride 115 mmol/L (96-108); Creatinine Clr Calc Pharmacy 34.3; Estimated Glomerular Filt Rate 39; Glucose Fasting 201 mg/dL (60-99); Potassium 4.7 mmol/L (3.3-5.1); Sodium 138 mmol/L (135-145)
--- NOTE | 2021-07-26 11:52 | P.PNIM_ITS ---
Subjective Subjective Date of Service: 07/26/21 Interval History: cc: ams interval history: poor historian, vague pain complaints Review of Systems Review of Systems: Yes Unobtainable due to mental condition Physical Exam Vital Signs: Vital Signs: Last Vital Signs Temp 98.3 F 07/26/21 07:50 Pulse 76 07/26/21 07:50 Resp 18 07/26/21 07:50 BP 115/48 L 07/26/21 07:50 Pulse Ox 98 07/26/21 07:50 BMI result Body Mass Index 33.5 General: AO X 1, frail Resp: Crackles bilateral, no accessory muscles used CVS: S1,S2,RRR GI: soft, non tender, non distended Neuro: motor grossly intact, alert Psych: appropriate affect, impaired insight Objective Data Active Medications Acetaminophen (Acetaminophen 325 Mg Tablet) 650 mg PO Q6H PRN PRN Reason: Pain, Mild (Pain Scale 1-3) Atorvastatin Calcium (Atorvastatin Calcium 10 Mg Tablet) 10 mg PO BEDTIME [facility] Last Admin: 07/25/21 20:57 Dose: 10 mg Documented by: VALDO Bupropion HCl (Bupropion Hcl 75 Mg Tablet) 75 mg PO BID [facility] Last Admin: 07/26/21 08:43 Dose: 75 mg Documented by: JERARDO Clopidogrel Bisulfate (Clopidogrel Bisulfate 75 Mg Tablet) 75 mg PO DAILY [facility] Last Admin: 07/26/21 08:43 Dose: 75 mg Documented by: JERARDO Dextrose (Dextrose 50 % 25 Gm/50 Ml Syringe) 25 gm IVPUSH Q15M PRN; Protocol PRN Reason: per Hypoglycemia Standing Ord. Enoxaparin Sodium (Enoxaparin Sodium 40 Mg/0.4 Ml Syringe) 40 mg SUBCUT Q24H [facility] Last Admin: 07/26/21 08:44 Dose: 40 mg Documented by: JERARDO Famotidine (Famotidine 20 Mg Tablet) 20 mg PO BID [facility] Last Admin: 07/26/21 08:44 Dose: 20 mg Documented by: JERARDO Fluoxetine HCl (Fluoxetine Hcl 20 Mg Capsule) 40 mg PO DAILY [facility] Last Admin: 07/26/21 08:44 Dose: 40 mg Documented by: JERARDO Glucose (Glucose Gel 15 Gm Gel..Gram.) 15 gm PO Q15M PRN; Protocol PRN Reason: per Hypoglycemia Standing Ord. Ceftriaxone Sodium 1 gm/ (Sodium Chloride) 50 mls @ 100 mls/hr IV Q24H [facility] Last Infusion: 07/26/21 04:31 Dose: 0 mls/hr Documented by: DIRK Insulin Human Lispro (Insulin Lispro 100 Unit/Ml 3 Ml Vial) 0 unit SUBCUT QIDACHS [facility]; Protocol Last Admin: 07/26/21 08:44 Dose: 2 unit Documented by: JERARDO Metoprolol Succinate (Metoprolol Succinate Er 25 Mg Tab.Er.24h) 25 mg PO DAILY [facility]; Protocol Last Admin: 07/26/21 08:43 Dose: 25 mg Documented by: JERARDO Pharmacy Consult (Consult Rx Perform Med Rec) 1 each MISCELLANE ONCE PRN PRN Reason: Consult order Sodium Chloride (0.9 % Sodium Chloride Flush 3 Ml Syringe) 3 ml IVFLUSH QSHIFT [facility] Last Admin: 07/26/21 08:45 Dose: 3 ml Documented by: JERARDO Labs CBC & Chem 7: 07/26/21 06:06 07/26/21 08:05 Labs: Laboratory Results - last 24 hr 07/25/21 07/25/21 07/25/21 12:23 14:24 17:08 MCV MCH MCHC RDW Plt Count MPV Absolute Nucleated RBC Nucleated RBC % (auto) Anion Gap Estim Creat Clear Calc Estimated GFR POC Glucose 154 H 146 H 256 H Fasting Glucose Calcium 07/25/21 07/25/21 07/26/21 19:39 20:15 06:06 MCV 99.7 H MCH 31.7 MCHC 31.7 RDW 13.4 Plt Count 405 H MPV 10.5 Absolute Nucleated RBC 0.000 Nucleated RBC % (auto) 0.0 Anion Gap Estim Creat Clear Calc Estimated GFR POC Glucose 273 H 269 H Fasting Glucose Calcium 07/26/21 07/26/21 07:27 08:05 MCV MCH MCHC RDW Plt Count MPV Absolute Nucleated RBC Nucleated RBC % (auto) Anion Gap 15 Estim Creat Clear Calc 34.3 Estimated GFR 39 POC Glucose 200 H Fasting Glucose 201 H Calcium 8.4 Microbiology Microbiology Results: Microbiology 07/25/21 Unknown Urine Culture - Final Urine Catheterized - Samuel Catheter 07/25/21 00:50 Blood Culture - Preliminary Blood - Venous No growth after 24 hours. 07/25/21 00:50 Blood Culture - Preliminary Blood - Venous No growth after 24 hours. 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
[2021-07-26 13:14] LABS: Glucose, Whole Blood 226 mg/dL (60-115)
--- NOTE | 2021-07-26 13:38 | PC.NURSE ---
pt is a/o x 1 sreaming i need my wheelchair pt's brother brian winters ([phone]) called earlier and was updatd on pt status
--- NOTE | 2021-07-26 13:58 | PC.NURSE ---
pt amb (ii) gait steady to br and btb. pt washed up in bathroom bd linen change
--- NOTE | 2021-07-26 14:11 | PC.NURSE ---
pt ate 25% of lunch
--- NOTE | 2021-07-26 14:20 | PC.NURSE ---
pt ate 25% of lunch
--- NOTE | 2021-07-26 14:30 | PC.NURSE ---
pt incontinent of urine, repositioned, bootie on james feet.
[2021-07-26] MEDS: QUEtiapine Fumarate 25 MG TABLET PO (14:50)
[2021-07-26 17:26] VITALS: BP 137/49; PULSE 81; RESP 16; TEMP 36.9; O2SAT 99
[2021-07-26 18:40] LABS: Glucose, Whole Blood 200 mg/dL (60-115)
[2021-07-26] MEDS: Atorvastatin Calcium 10 MG TABLET PO (21:46)
[2021-07-26 21:52] LABS: Glucose, Whole Blood 177 mg/dL (60-115)
[2021-07-27] VITALS (7 sets, daily range): BP systolic 121–160; BP diastolic 45–70; PULSE 79–88; RESP 16–20; TEMP 36.7–37.1; O2SAT 95–99
[2021-07-27] MEDS: 0.9 % Sodium Chloride Flush 3 ML SYRINGE IVFLUSH ×4 (00:38→20:34)
[2021-07-27] MEDS: cefTRIAXone sodium 1 GM in 0.9 % Sodium Chloride 50 ML IV (02:27)
[2021-07-27 07:10] LABS: Hematocrit 32.3 % (37.0-47.0); Hemoglobin 10.5 g/dl (12.0-16.0); Mean Corpuscular HGB Conc 32.5 g/dl (31.0-35.0); Mean Corpuscular Volume 98.5 fL (80.0-98.0); Mean Platelet Volume 9.8 fL (9.4-12.3); Platelet Count 344 X10*3/uL (160-400); Red Blood Count 3.28 X10*6/uL (4.20-5.50); Red Cell Distribution Width 13.3 % (11.0-16.0); White Blood Count 12.2 X10*3/uL (4.8-10.8)
[2021-07-27 07:30] LABS: Anion Gap 16 (12-20); Blood Urea Nitrogen 24 mg/dL (9-16); Calcium 8.6 mg/dL (8.4-10.2); Carbon Dioxide 17 mmol/L (22-29); Chloride 113 mmol/L (96-108); Creatinine Clr Calc Pharmacy 37.8; Estimated Glomerular Filt Rate 43; Glucose Fasting 195 mg/dL (60-99); Potassium 4.7 mmol/L (3.3-5.1); Sodium 141 mmol/L (135-145)
[2021-07-27 07:42] LABS: Glucose, Whole Blood 182 mg/dL (60-115)
[2021-07-27] MEDS: Insulin Lispro 100 UNIT/ML 3 ML VIAL SUBCUT ×3 (08:11→20:34)
[2021-07-27] MEDS: Enoxaparin Sodium 40 MG/0.4 ML SYRINGE SUBCUT (08:12)
[2021-07-27] MEDS: Clopidogrel Bisulfate 75 MG TABLET PO (10:45)
[2021-07-27] MEDS: Famotidine 20 MG TABLET PO ×2 (10:45→20:34)
[2021-07-27] MEDS: FLUoxetine HCl 20 MG CAPSULE 40 MG PO (10:45)
[2021-07-27] MEDS: Metoprolol Succinate ER 25 MG TAB.ER.24H PO (10:46)
[2021-07-27] MEDS: buPROPion HCL 75 MG TABLET PO ×2 (10:46→20:34)
--- NOTE | 2021-07-27 13:42 | HO.PM.IMPN ---
Subjective Subjective Date of Service: 07/27/21 Interval History: cc: ams interval history: poor historian, vague pain complaints Cardiovascular Cardiovascular: Reports no additional cardiovascular complaints Respiratory Respiratory: Reports no additional respiratory complaints Physical Exam Vital Signs: Vital Signs: Last Vital Signs Temp 98.6 F 07/27/21 00:00 Pulse 82 07/27/21 12:06 Resp 16 07/27/21 12:06 BP 146/45 H 07/27/21 12:06 Pulse Ox 96 07/27/21 12:06 BMI result Body Mass Index 33.5 General: AO X 1, frail Resp:? Crackles bilateral, no accessory muscles used CVS: S1,S2,RRR GI: soft, non tender, non distended Neuro:? motor grossly intact, alert Psych: appropriate affect, impaired insight? Objective Data Active Medications Acetaminophen (Acetaminophen 325 Mg Tablet) 650 mg PO Q6H PRN PRN Reason: Pain, Mild (Pain Scale 1-3) Atorvastatin Calcium (Atorvastatin Calcium 10 Mg Tablet) 10 mg PO BEDTIME [facility] Last Admin: 07/26/21 21:46 Dose: 10 mg Documented by: JONI Bupropion HCl (Bupropion Hcl 75 Mg Tablet) 75 mg PO BID [facility] Last Admin: 07/27/21 10:46 Dose: 75 mg Documented by: BARBARA Clopidogrel Bisulfate (Clopidogrel Bisulfate 75 Mg Tablet) 75 mg PO DAILY [facility] Last Admin: 07/27/21 10:45 Dose: 75 mg Documented by: BARBARA Dextrose (Dextrose 50 % 25 Gm/50 Ml Syringe) 25 gm IVPUSH Q15M PRN; Protocol PRN Reason: per Hypoglycemia Standing Ord. Enoxaparin Sodium (Enoxaparin Sodium 40 Mg/0.4 Ml Syringe) 40 mg SUBCUT Q24H [facility] Last Admin: 07/27/21 08:12 Dose: 40 mg Documented by: BARBARA Famotidine (Famotidine 20 Mg Tablet) 20 mg PO BID [facility] Last Admin: 07/27/21 10:45 Dose: 20 mg Documented by: BARBARA Fluoxetine HCl (Fluoxetine Hcl 20 Mg Capsule) 40 mg PO DAILY [facility] Last Admin: 07/27/21 10:45 Dose: 40 mg Documented by: BARBARA Glucose (Glucose Gel 15 Gm Gel..Gram.) 15 gm PO Q15M PRN; Protocol PRN Reason: per Hypoglycemia Standing Ord. Ceftriaxone Sodium 1 gm/ (Sodium Chloride) 50 mls @ 100 mls/hr IV Q24H [facility] Last Infusion: 07/27/21 02:57 Dose: 0 mls/hr Documented by: GABRIELLA Insulin Human Lispro (Insulin Lispro 100 Unit/Ml 3 Ml Vial) 0 unit SUBCUT QIDACHS [facility]; Protocol Last Admin: 07/27/21 08:11 Dose: 2 unit Documented by: BARBARA Metoprolol Succinate (Metoprolol Succinate Er 25 Mg Tab.Er.24h) 25 mg PO DAILY [facility]; Protocol Last Admin: 07/27/21 10:46 Dose: 25 mg Documented by: BARBARA Pharmacy Consult (Consult Rx Perform Med Rec) 1 each MISCELLANE ONCE PRN PRN Reason: Consult order Sodium Chloride (0.9 % Sodium Chloride Flush 3 Ml Syringe) 3 ml IVFLUSH QSHIFT [facility] Last Admin: 07/27/21 08:13 Dose: 3 ml Documented by: BARBARA Labs CBC & Chem 7: 07/27/21 06:53 07/27/21 06:53 Labs: Laboratory Results - last 24 hr 07/26/21 07/26/21 07/27/21 18:36 21:49 06:53 MCV 98.5 H MCH 32.0 MCHC 32.5 RDW 13.3 Plt Count 344 MPV 9.8 Absolute Nucleated RBC 0.000 Nucleated RBC % (auto) 0.0 Anion Gap Estim Creat Clear Calc Estimated GFR POC Glucose 200 H 177 H Fasting Glucose Calcium 07/27/21 07/27/21 06:53 07:38 MCV MCH MCHC RDW Plt Count MPV Absolute Nucleated RBC Nucleated RBC % (auto) Anion Gap 16 Estim Creat Clear Calc 37.8 Estimated GFR 43 POC Glucose 182 H Fasting Glucose 195 H Calcium 8.6 Microbiology Microbiology Results: Microbiology 07/25/21 00:50 Blood Culture - Preliminary Blood - Venous No growth after 48 hours. 07/25/21 00:50 Blood Culture - Preliminary Blood - Venous No growth after 48 hours. 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
[2021-07-27 13:51] LABS: Glucose, Whole Blood 178 mg/dL (60-115)
--- NOTE | 2021-07-27 14:35 | MHC.SL.SWA ---
Speech Pathologist Impression: Oropharyngeal dysphagia Risk of Aspiration Due to: Neurological Condition History of Pneumonia Dysphasia Diet Status: Downgrade Liquid Consistency and Strategies for Safe Swallow: Liquid Intake Recommendation: Honey Thick Liquid Intake Strategies: Small Sips Solid Food Consistency: Dietary Recommendations: Pureed (NDD1) Additional Modifications to Solid Foods: Patient seen for bedside swallow evaluation while in the ED overflow area. Exam was limited d/t patient's refusal to participate. Patient would only accept liquids by straw. Patient did demonstrate cough after drinking thin liquid. Patient showed no s/s of aspiration with honey thick liquid. When given ground consistency, limited chewing of bolus, patient pocketed and then spit out bolus. Recommend start patient on PUREED (NDD1) diet with HONEY THICK liquids, pills CRUSHED in PUREE. Patient requires total supervision, assistance as needed for meals. Aspiration precautions apply. Potential for upgrade in diet if patient cooperates in evaluation, trying other foods and liquids. UNEMPLOYMENT INSURANCE DIRECTOR will re-evaluate tomorrow. Oral Medication Intake: Crushed with Puree Please contact the pharmacy regarding appropriate crushable or liquid drug formulations that are available whenever modified delivery is recommended. Compensatory Strategies and Precautions to be Taken for Safe Swallow: Sitting Upright (90 deg) Liquids from Straw Small Bites and Sips Alternate Liquids/Solids Rate of Ingestion Change Oral Check Supervision While Eating and Drinking for Safe Swallow: Total Assistance (1:1) Swallowing Recommended Treatments: Compens. Strategy Educat. Recommendation for Speech: Inpatient Speech Therapy Comment: UNEMPLOYMENT INSURANCE DIRECTOR to re-evaluate tomorrow morning. Inspector And Sorter Clinican/Clinical Fellow: No Supervisory Statement: I have reviewed and agree with the student/clinical fellow's documentation: N/A Speech Language Pathologist: Vandana Weinberg M.A., [facility]-UNEMPLOYMENT INSURANCE DIRECTOR
--- NOTE | 2021-07-27 15:54 | MHC.CM.PN ---
CM CALLED PTS SISTER/HCP, KEVIN ZUNIGA [phone]. 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 SHE REPORTS SHE DOES NOT WANT TO GIVE UP THE PTS BED BECAUSE THEY ARE ON AN ADMISSIONS FREEZE AND SHE MAY NOT BE ABLE TO FIND ANOTHER SNF. SHE DOES ASK THAT REFERRALS BE SENT TO DETERMINE IF THERE ARE ANY OTHER SNFS WILLING TO OFFER. KEVIN REPORTS THE PT IS DEPENDENT FOR CARE AND A DAVINA LIFT TO TRANSFER. PT SEES THE ACCOUNTS ADJUSTABLE CLERK AT [facility]), KEVIN IS UNSURE OF THE NAME HCP AND MOLST ON FILE COVID VACCINATED WITH J&J AND TWO BOOSTERS IMM DELIVERED, COPY SENT TO [facility] CURRENT DC PLAN IS RETURN TO [facility] VIA BLS CM WILL MESSAGE SNF FOR PCP AND [employer] POLICY INFORMATION
[2021-07-27 16:40] LABS: Glucose, Whole Blood 243 mg/dL (60-115)
[2021-07-27 20:20] LABS: Glucose, Whole Blood 203 mg/dL (60-115)
[2021-07-27] MEDS: Atorvastatin Calcium 10 MG TABLET PO (20:34)
[2021-07-28] MEDS: cefTRIAXone sodium 1 GM in 0.9 % Sodium Chloride 50 ML IV (01:53)
[2021-07-28 07:34] VITALS: BP 147/67; PULSE 84; RESP 18; TEMP 36.4; O2SAT 97
[2021-07-28 08:06] LABS: Glucose, Whole Blood 189 mg/dL (60-115)
[2021-07-28] MEDS: 0.9 % Sodium Chloride Flush 3 ML SYRINGE IVFLUSH ×3 (08:10→20:11)
[2021-07-28] MEDS: Insulin Lispro 100 UNIT/ML 3 ML VIAL SUBCUT ×4 (08:10→20:11)
[2021-07-28] MEDS: FLUoxetine HCl 20 MG CAPSULE 40 MG PO (08:11)
[2021-07-28] MEDS: Metoprolol Succinate ER 25 MG TAB.ER.24H PO (08:11)
[2021-07-28] MEDS: Famotidine 20 MG TABLET PO ×2 (08:11→20:10)
[2021-07-28] MEDS: Clopidogrel Bisulfate 75 MG TABLET PO (08:11)
[2021-07-28] MEDS: Enoxaparin Sodium 40 MG/0.4 ML SYRINGE SUBCUT (08:11)
[2021-07-28] MEDS: buPROPion HCL 75 MG TABLET PO ×2 (08:11→20:09)
[2021-07-28 11:42] LABS: Glucose, Whole Blood 234 mg/dL (60-115)
--- NOTE | 2021-07-28 13:52 | MHC.SL.SWA ---
Speech Pathologist Impression: Risk of Aspiration Due to: Neurological Condition History of Pneumonia Dysphasia Diet Status: Puree (NDD1) with NECTAR THICK liquids, Pills CRUSHED in PUREE. Liquid Consistency and Strategies for Safe Swallow: Liquid Intake Recommendation: [place] Thick Liquid Intake Strategies: Small Sips Solid Food Consistency: Dietary Recommendations: Pureed (NDD1) Additional Modifications to Solid Foods: Patient requires total supervision, assistance as needed for meals. Aspiration precautions apply. SOLAR SALES ENERGY ADVISOR will continue to follow, upgrade if warranted. Oral Medication Intake: Crushed with Puree Please contact the pharmacy regarding appropriate crushable or liquid drug formulations that are available whenever modified delivery is recommended. Compensatory Strategies and Precautions to be Taken for Safe Swallow: Sitting Upright (90 deg) Liquids from Cup Liquids from Straw Small Bites and Sips Alternate Liquids/Solids Rate of Ingestion Change Oral Check Supervision While Eating and Drinking for Safe Swallow: Total Assistance (1:1) Foods to Avoid: Swallowing Recommended Treatments: Compens. Strategy Educat. Recommendation for Speech: Inpatient Speech Therapy Comment: Pt seen this a.m. for toleration of diet, re-assessment of swallow. Pt had breakfast tray present, had eaten much of it and expressed pleasure with the food. HT liquids were also present on tray, untouched. Pt was given tsp, then cup sip of thin (water) liquid. After cup sip, Pt noted to produce wet cough. Pt given cup sip of NECTAR THICK liquid, Pt produced normal oral phase, timely swallow, no clinical signs of aspiration. Pt able to reliably self administer cup sip of NT liquids, taking small sips. No clinical s/s aspiration on several self administered sips. RECOMMEND UPGRADE to [place] Thick Liquids. MD notified by secure text, liquid texture upgraded in diet orders by SOLAR SALES ENERGY ADVISOR. Frequency/Duration: Date Range for Service Req: Timeline to reassess: Health Insurance Adjuster Clinican/Clinical Fellow: No Supervisory Statement: I have reviewed and agree with the student/clinical fellow's documentation: N/A Speech Language Pathologist: Shira Alfredo M.A., CCC-SOLAR SALES ENERGY ADVISOR
--- NOTE | 2021-07-28 15:03 | HO.PM.IMPN ---
Subjective Subjective Date of Service: 07/28/21 Interval History: Pain controlled. History limited by dementia. Developed gross hematuria this am- noticed in Purewick catheter. Review of Systems Review of Systems: Yes all other systems are reviewed and are negative Physical Exam Vital Signs: Vital Signs: Last Vital Signs Temp 97.6 F 07/28/21 07:34 Pulse 84 07/28/21 07:34 Resp 18 07/28/21 07:34 BP 147/67 H 07/28/21 07:34 Pulse Ox 97 07/28/21 07:34 BMI result Body Mass Index 33.5 Gen: in no acute distress, frail HEENT: sclera anicteric, moist mucus membranes Neck: supple Lungs: scattered inspiratory crackles Heart: regular rate and rhythm, no murmurs Abd: soft, non-tender, non-distended Ext: no edema Skin: warm/well-perfused Neuro: alert and oriented to self only Psych: impaired insight Objective Data Active Medications Acetaminophen (Acetaminophen 325 Mg Tablet) 650 mg PO Q6H PRN PRN Reason: Pain, Mild (Pain Scale 1-3) Atorvastatin Calcium (Atorvastatin Calcium 10 Mg Tablet) 10 mg PO BEDTIME [facility] Last Admin: 07/27/21 20:34 Dose: 10 mg Documented by: DIRK Bupropion HCl (Bupropion Hcl 75 Mg Tablet) 75 mg PO BID [facility] Last Admin: 07/28/21 08:11 Dose: 75 mg Documented by: DARNELL Clopidogrel Bisulfate (Clopidogrel Bisulfate 75 Mg Tablet) 75 mg PO DAILY [facility] Last Admin: 07/28/21 08:11 Dose: 75 mg Documented by: DARNELL Dextrose (Dextrose 50 % 25 Gm/50 Ml Syringe) 25 gm IVPUSH Q15M PRN; Protocol PRN Reason: per Hypoglycemia Standing Ord. Enoxaparin Sodium (Enoxaparin Sodium 40 Mg/0.4 Ml Syringe) 40 mg SUBCUT Q24H [facility] Last Admin: 07/28/21 08:11 Dose: 40 mg Documented by: DARNELL Famotidine (Famotidine 20 Mg Tablet) 20 mg PO BID [facility] Last Admin: 07/28/21 08:11 Dose: 20 mg Documented by: DARNELL Fluoxetine HCl (Fluoxetine Hcl 20 Mg Capsule) 40 mg PO DAILY [facility] Last Admin: 07/28/21 08:11 Dose: 40 mg Documented by: DARNELL Glucose (Glucose Gel 15 Gm Gel..Gram.) 15 gm PO Q15M PRN; Protocol PRN Reason: per Hypoglycemia Standing Ord. Ceftriaxone Sodium 1 gm/ (Sodium Chloride) 50 mls @ 100 mls/hr IV Q24H [facility] Last Infusion: 07/28/21 02:32 Dose: 0 mls/hr Documented by: DIRK Insulin Human Lispro (Insulin Lispro 100 Unit/Ml 3 Ml Vial) 0 unit SUBCUT QIDACHS [facility]; Protocol Last Admin: 07/28/21 11:52 Dose: 4 unit Documented by: DARNELL Metoprolol Succinate (Metoprolol Succinate Er 25 Mg Tab.Er.24h) 25 mg PO DAILY [facility]; Protocol Last Admin: 07/28/21 08:11 Dose: 25 mg Documented by: DARNELL Pharmacy Consult (Consult Rx Perform Med Rec) 1 each MISCELLANE ONCE PRN PRN Reason: Consult order Sodium Chloride (0.9 % Sodium Chloride Flush 3 Ml Syringe) 3 ml IVFLUSH QSHIFT [facility] Last Admin: 07/28/21 08:10 Dose: 3 ml Documented by: DARNELL Labs CBC & Chem 7: 07/27/21 06:53 07/27/21 06:53 Labs: Laboratory Results - last 24 hr 07/27/21 07/27/21 07/28/21 16:12 20:14 07:35 POC Glucose 243 H 203 H 189 H 07/28/21 11:24 POC Glucose 234 H Assessment and Plan (1) Hypotension: Status: Acute Plan hospital d#3 81yo F with possible vascular dementia, hx CVA, long-term SNF resident sent in with altered mental status found to be hypoglycemic also had acute vs. subacute fx through base of greater trochanter on left, superimposed on prior femoral neck fx noted on Dec 2020 # metabolic encephalopathy due to DM with hypoglycemia - resolved with D50, Lantus held # sepsis due to aspiration PNA - ceftriaxone d#3 - BENDER HELPER consulted: continue NDD1 [pureed] solids, upgrade liquids to nectar-thick # acute hematuria - hold LMWH + clopidogrel, consult Uro # acute/chronic L hip fracture - ortho consulted, pt non-ambulatory so no operative fixation indicated # HTN - continue metoprolol - resume losartan - amlodipine + spironolactone held due to sepsis, resume as tolerated/needed # hx CVA - continue statin; hold clopidogrel due to bleeding # DM2 - correction-dose lispro, check A1c # mood disorder - fluoxetine, bupropion # VTE ppx - SCDs; hold LMWH due to hematuria In my clinical judgment, the patient requires continued hospitalization for the following reasons: hematuria IV ABX Quality Stroke Does the patient have a stroke diagnosis?: No VTE Prior VTE?: No VTE Risk Level:: Medical - moderate - high VTE Device Contraindication: Treatment Not Indicated VTE Drug Contraindication: N/A - Med Ordered
[2021-07-28 15:22] LABS: Glucose, Whole Blood 263 mg/dL (60-115)
[2021-07-28 15:26] VITALS: BP 150/65; PULSE 80; RESP 18; TEMP 36.6; O2SAT 98
[2021-07-28] MEDS: Losartan Potassium 50 MG TABLET PO (15:48)
[2021-07-28 19:35] LABS: Glucose, Whole Blood 203 mg/dL (60-115)
[2021-07-28] MEDS: Atorvastatin Calcium 10 MG TABLET PO (20:09)
[2021-07-28] MEDS: Acetaminophen 325 MG TABLET 650 MG PO (20:10)
[2021-07-28 23:54] VITALS: BP 143/67; PULSE 74; RESP 17; TEMP 36.2; O2SAT 97
[2021-07-29] MEDS: cefTRIAXone sodium 1 GM in 0.9 % Sodium Chloride 50 ML IV (01:23)
[2021-07-29 05:59] LABS: Hematocrit 31.3 % (37.0-47.0); Hemoglobin 10.3 g/dl (12.0-16.0); Mean Corpuscular HGB Conc 32.9 g/dl (31.0-35.0); Mean Corpuscular Hemoglobin 32.2 pg (27.0-33.0); Mean Corpuscular Volume 97.8 fL (80.0-98.0); Mean Platelet Volume 10.5 fL (9.4-12.3); Platelet Count 351 X10*3/uL (160-400); Red Cell Distribution Width 13.4 % (11.0-16.0); White Blood Count 13.2 X10*3/uL (4.8-10.8)
[2021-07-29] MEDS: Acetaminophen 325 MG TABLET 650 MG PO (06:21)
[2021-07-29 06:25] LABS: Anion Gap 15 (12-20); Blood Urea Nitrogen 23 mg/dL (9-16); Calcium 8.7 mg/dL (8.4-10.2); Carbon Dioxide 17 mmol/L (22-29); Chloride 111 mmol/L (96-108); Creatinine Clr Calc Pharmacy 46.9; Estimated Glomerular Filt Rate 56; Glucose Random 214 mg/dL (60-115); Potassium 4.2 mmol/L (3.3-5.1); Sodium 139 mmol/L (135-145)
[2021-07-29 07:17] VITALS: BP 142/65; PULSE 80; RESP 18; TEMP 36.1; O2SAT 96
[2021-07-29 07:35] LABS: Glucose, Whole Blood 221 mg/dL (60-115)
[2021-07-29 08:24] LABS: Estimated Average Glucose 137 mg/dL; Hemoglobin A1c % 6.4 %
[2021-07-29] MEDS: buPROPion HCL 75 MG TABLET PO ×2 (09:25→20:36)
[2021-07-29] MEDS: Famotidine 20 MG TABLET PO ×2 (09:25→20:36)
[2021-07-29] MEDS: FLUoxetine HCl 20 MG CAPSULE 40 MG PO (09:25)
[2021-07-29] MEDS: Metoprolol Succinate ER 25 MG TAB.ER.24H PO (09:25)
[2021-07-29] MEDS: Losartan Potassium 50 MG TABLET PO (09:25)
[2021-07-29] MEDS: 0.9 % Sodium Chloride Flush 3 ML SYRINGE IVFLUSH ×3 (09:26→20:36)
[2021-07-29] MEDS: Insulin Lispro 100 UNIT/ML 3 ML VIAL SUBCUT ×4 (09:26→20:35)
[2021-07-29 11:37] LABS: Glucose, Whole Blood 273 mg/dL (60-115)
--- NOTE | 2021-07-29 12:23 | MHC.SL.SWA ---
Speech Pathologist Impression: Oropharyngeal dysphagia Risk of Aspiration Due to: Neurological Condition History of Pneumonia Dysphasia Diet Status: Puree (NDD1) with NECTAR THICK liquids, Pills CRUSHED in PUREE. *Coughing with thin liquid Liquid Consistency and Strategies for Safe Swallow: Liquid Intake Recommendation: [place] Thick Liquid Intake Strategies: Small Sips Solid Food Consistency: Dietary Recommendations: Pureed (NDD1) Additional Modifications to Solid Foods: Patient requires total supervision, assistance as needed for meals. Aspiration precautions apply. WRITER TECHNICAL PUBLICATIONS will continue to follow, upgrade if warranted. Oral Medication Intake: Crushed with Puree Please contact the pharmacy regarding appropriate crushable or liquid drug formulations that are available whenever modified delivery is recommended. Compensatory Strategies and Precautions to be Taken for Safe Swallow: Sitting Upright (90 deg) Liquids from Cup Liquids from Straw Small Bites and Sips Alternate Liquids/Solids Rate of Ingestion Change Oral Check Supervision While Eating and Drinking for Safe Swallow: Total Assistance (1:1) Swallowing Recommended Treatments: Compens. Strategy Educat. Recommendation for Speech: Inpatient Speech Therapy Plastics Process Hand Clinican/Clinical Fellow: No Supervisory Statement: I have reviewed and agree with the student/clinical fellow's documentation: N/A Speech Language Pathologist: Vandana Weinberg M.A., [facility]-WRITER TECHNICAL PUBLICATIONS
--- NOTE | 2021-07-29 12:26 | P.PNIM_ITS ---
Subjective Subjective Date of Service: 07/29/21 Interval History: Minimal cough No dyspnea Ongoing hematuria Review of Systems Review of Systems: Yes all other systems are reviewed and are negative Physical Exam Vital Signs: Vital Signs: Last Vital Signs Temp 97.0 F 07/29/21 07:17 Pulse 80 07/29/21 07:17 Resp 18 07/29/21 07:17 BP 142/65 H 07/29/21 07:17 Pulse Ox 96 07/29/21 07:17 BMI result Body Mass Index 33.5 Gen: in no acute distress, frail HEENT: sclera anicteric, moist mucus membranes Neck: supple Lungs: scattered inspiratory crackles Heart: regular rate and rhythm, no murmurs Abd: soft, non-tender, non-distended Ext: no edema Skin: warm/well-perfused Neuro: alert and oriented to self only Psych: impaired insight Objective Data Active Medications Acetaminophen (Acetaminophen 325 Mg Tablet) 650 mg PO Q6H PRN PRN Reason: Pain, Mild (Pain Scale 1-3) Last Admin: 07/29/21 06:21 Dose: 650 mg Documented by: YARI Atorvastatin Calcium (Atorvastatin Calcium 10 Mg Tablet) 10 mg PO BEDTIME [facility] Last Admin: 07/28/21 20:09 Dose: 10 mg Documented by: YARI Bupropion HCl (Bupropion Hcl 75 Mg Tablet) 75 mg PO BID [facility] Last Admin: 07/29/21 09:25 Dose: 75 mg Documented by: GUS Clopidogrel Bisulfate (Clopidogrel Bisulfate 75 Mg Tablet) 75 mg PO DAILY [facility] Last Admin: 07/28/21 08:11 Dose: 75 mg Documented by: DARNELL Dextrose (Dextrose 50 % 25 Gm/50 Ml Syringe) 25 gm IVPUSH Q15M PRN; Protocol PRN Reason: per Hypoglycemia Standing Ord. Enoxaparin Sodium (Enoxaparin Sodium 40 Mg/0.4 Ml Syringe) 40 mg SUBCUT Q24H [facility] Last Admin: 07/28/21 08:11 Dose: 40 mg Documented by: DARNELL Famotidine (Famotidine 20 Mg Tablet) 20 mg PO BID [facility] Last Admin: 07/29/21 09:25 Dose: 20 mg Documented by: GUS Fluoxetine HCl (Fluoxetine Hcl 20 Mg Capsule) 40 mg PO DAILY [facility] Last Admin: 07/29/21 09:25 Dose: 40 mg Documented by: GUS Glucose (Glucose Gel 15 Gm Gel..Gram.) 15 gm PO Q15M PRN; Protocol PRN Reason: per Hypoglycemia Standing Ord. Ceftriaxone Sodium 1 gm/ (Sodium Chloride) 50 mls @ 100 mls/hr IV Q24H [facility] Last Infusion: 07/29/21 01:55 Dose: 0 mls/hr Documented by: YARI Insulin Human Lispro (Insulin Lispro 100 Unit/Ml 3 Ml Vial) 0 unit SUBCUT QIDACHS [facility]; Protocol Last Admin: 07/29/21 11:48 Dose: 6 unit Documented by: GUS Losartan Potassium (Losartan Potassium 50 Mg Tablet) 50 mg PO DAILY [facility]; Protocol Last Admin: 07/29/21 09:25 Dose: 50 mg Documented by: GUS Metoprolol Succinate (Metoprolol Succinate Er 25 Mg Tab.Er.24h) 25 mg PO DAILY [facility]; Protocol Last Admin: 07/29/21 09:25 Dose: 25 mg Documented by: GUS Pharmacy Consult (Consult Rx Perform Med Rec) 1 each MISCELLANE ONCE PRN PRN Reason: Consult order Sodium Chloride (0.9 % Sodium Chloride Flush 3 Ml Syringe) 3 ml IVFLUSH QSHIFT [facility] Last Admin: 07/29/21 09:26 Dose: 3 ml Documented by: GUS Labs CBC & Chem 7: 07/29/21 05:28 07/29/21 05:28 Labs: Laboratory Results - last 24 hr 07/28/21 07/28/21 07/29/21 15:17 19:30 05:28 MCV 97.8 MCH 32.2 MCHC 32.9 RDW 13.4 Plt Count 351 MPV 10.5 Absolute Nucleated RBC 0.000 Nucleated RBC % (auto) 0.0 Anion Gap Estim Creat Clear Calc Estimated GFR POC Glucose 263 H 203 H Random Glucose Estimat Average Glucose Hemoglobin A1c % Calcium Procalcitonin 07/29/21 07/29/21 07/29/21 05:28 05:28 05:28 MCV MCH MCHC RDW Plt Count MPV Absolute Nucleated RBC Nucleated RBC % (auto) Anion Gap 15 Estim Creat Clear Calc 46.9 Estimated GFR 56 POC Glucose Random Glucose 214 H Estimat Average Glucose 137 Hemoglobin A1c % 6.4 Calcium 8.7 Procalcitonin 0.70 07/29/21 07/29/21 07:16 11:18 MCV MCH MCHC RDW Plt Count MPV Absolute Nucleated RBC Nucleated RBC % (auto) Anion Gap Estim Creat Clear Calc Estimated GFR POC Glucose 221 H 273 H Random Glucose Estimat Average Glucose Hemoglobin A1c % Calcium Procalcitonin Assessment and Plan (1) Hypotension: Status: Acute Plan hospital d#4 81yo F with possible vascular dementia, hx CVA, long-term SNF resident at [facility] sent in with altered mental status found to be hypoglycemic also had acute vs. subacute fx through base of greater trochanter on left, superimposed on prior femoral neck fx noted on Dec 2020 # metabolic encephalopathy due to DM with hypoglycemia - resolved with D50, Lantus held # sepsis due to aspiration PNA - ceftriaxone d#4 - HEMATOLOGY NURSE consulted: continue NDD1 [pureed] solids, nectar-thick liquids # acute hematuria - hold LMWH + clopidogrel, Urology consult pending # acute/chronic L hip fracture - ortho consulted, pt non-ambulatory so no operative fixation indicated # HTN - continue metoprolol - resumed losartan - amlodipine + spironolactone held due to sepsis, resume as tolerated/needed # hx CVA - continue statin; hold clopidogrel due to bleeding # DM2 - correction-dose lispro, A1c well-controlled at 6.4 # mood disorder - fluoxetine, bupropion # VTE ppx - SCDs; hold LMWH due to hematuria In my clinical judgment, the patient requires continued hospitalization for the following reasons: hematuria IV ABX Quality Stroke Does the patient have a stroke diagnosis?: No VTE Prior VTE?: No VTE Risk Level:: Medical - moderate - high VTE Device Contraindication: Treatment Not Indicated VTE Drug Contraindication: N/A - Med Ordered
[2021-07-29 15:15] VITALS: BP 137/62; PULSE 79; RESP 18; TEMP 36.4; O2SAT 97
[2021-07-29 19:59] LABS: Glucose, Whole Blood 234 mg/dL (60-115)
[2021-07-29 20:27] LABS: Glucose, Whole Blood 221 mg/dL (60-115)
[2021-07-29] MEDS: Atorvastatin Calcium 10 MG TABLET PO (20:35)
[2021-07-29 23:59] VITALS: BP 130/60; PULSE 75; RESP 18; TEMP 36.4; O2SAT 100
[2021-07-30] MEDS: cefTRIAXone sodium 1 GM in 0.9 % Sodium Chloride 50 ML IV (02:06)
[2021-07-30 07:16] VITALS: BP 146/65; PULSE 82; RESP 18; TEMP 37.1; O2SAT 99
[2021-07-30 07:23] LABS: Glucose, Whole Blood 228 mg/dL (60-115)
[2021-07-30] MEDS: Losartan Potassium 50 MG TABLET PO (08:20)
[2021-07-30] MEDS: FLUoxetine HCl 20 MG CAPSULE 40 MG PO (08:20)
[2021-07-30] MEDS: Famotidine 20 MG TABLET PO ×2 (08:20→20:19)
[2021-07-30] MEDS: Metoprolol Succinate ER 25 MG TAB.ER.24H PO (08:20)
[2021-07-30] MEDS: buPROPion HCL 75 MG TABLET PO ×2 (08:20→20:19)
[2021-07-30] MEDS: 0.9 % Sodium Chloride Flush 3 ML SYRINGE IVFLUSH ×3 (08:21→20:19)
[2021-07-30] MEDS: Insulin Lispro 100 UNIT/ML 3 ML VIAL SUBCUT ×4 (08:21→20:27)
[2021-07-30 11:29] LABS: Glucose, Whole Blood 298 mg/dL (60-115)
--- NOTE | 2021-07-30 12:42 | MHC.CM.PN ---
PLAN IS ONE MORE DAY OF IV ABX AND RETURN TO [facility] MADE AWARE OF PLAN.
[2021-07-30 16:00] VITALS: BP 142/63; PULSE 75; RESP 16; TEMP 36.6; O2SAT 97
--- NOTE | 2021-07-30 16:29 | P.PNIM_ITS ---
Subjective Subjective Date of Service: 07/30/21 Interval History: Pt denies any pain. Cough improving Review of Systems Review of Systems: Yes all other systems are reviewed and are negative Physical Exam Vital Signs: Vital Signs: Last Vital Signs Temp 98 F 07/30/21 16:00 Pulse 75 07/30/21 16:00 Resp 16 07/30/21 16:00 BP 142/63 H 07/30/21 16:00 Pulse Ox 97 07/30/21 16:00 BMI result Body Mass Index 33.5 Gen: in no acute distress, frail HEENT: sclera anicteric, moist mucus membranes Neck: supple Lungs: scattered inspiratory crackles Heart: regular rate and rhythm, no murmurs Abd: soft, non-tender, non-distended Ext: no edema Skin: warm/well-perfused Neuro: alert and oriented to self only Psych: impaired insight Objective Data Active Medications Acetaminophen (Acetaminophen 325 Mg Tablet) 650 mg PO Q6H PRN PRN Reason: Pain, Mild (Pain Scale 1-3) Last Admin: 07/29/21 06:21 Dose: 650 mg Documented by: YARI Atorvastatin Calcium (Atorvastatin Calcium 10 Mg Tablet) 10 mg PO BEDTIME [facility] Last Admin: 07/29/21 20:35 Dose: 10 mg Documented by: YARI Bupropion HCl (Bupropion Hcl 75 Mg Tablet) 75 mg PO BID [facility] Last Admin: 07/30/21 08:20 Dose: 75 mg Documented by: GUS Clopidogrel Bisulfate (Clopidogrel Bisulfate 75 Mg Tablet) 75 mg PO DAILY [facility] Last Admin: 07/28/21 08:11 Dose: 75 mg Documented by: DARNELL Dextrose (Dextrose 50 % 25 Gm/50 Ml Syringe) 25 gm IVPUSH Q15M PRN; Protocol PRN Reason: per Hypoglycemia Standing Ord. Enoxaparin Sodium (Enoxaparin Sodium 40 Mg/0.4 Ml Syringe) 40 mg SUBCUT Q24H [facility] Last Admin: 07/28/21 08:11 Dose: 40 mg Documented by: DARNELL Famotidine (Famotidine 20 Mg Tablet) 20 mg PO BID [facility] Last Admin: 07/30/21 08:20 Dose: 20 mg Documented by: GUS Fluoxetine HCl (Fluoxetine Hcl 20 Mg Capsule) 40 mg PO DAILY [facility] Last Admin: 07/30/21 08:20 Dose: 40 mg Documented by: GUS Glucose (Glucose Gel 15 Gm Gel..Gram.) 15 gm PO Q15M PRN; Protocol PRN Reason: per Hypoglycemia Standing Ord. Ceftriaxone Sodium 1 gm/ (Sodium Chloride) 50 mls @ 100 mls/hr IV Q24H [facility] Last Infusion: 07/30/21 02:36 Dose: 0 mls/hr Documented by: YARI Insulin Human Lispro (Insulin Lispro 100 Unit/Ml 3 Ml Vial) 0 unit SUBCUT QIDACHS [facility]; Protocol Last Admin: 07/30/21 12:01 Dose: 6 unit Documented by: GUS Losartan Potassium (Losartan Potassium 50 Mg Tablet) 50 mg PO DAILY [facility]; Protocol Last Admin: 07/30/21 08:20 Dose: 50 mg Documented by: GUS Metoprolol Succinate (Metoprolol Succinate Er 25 Mg Tab.Er.24h) 25 mg PO DAILY [facility]; Protocol Last Admin: 07/30/21 08:20 Dose: 25 mg Documented by: GUS Pharmacy Consult (Consult Rx Perform Med Rec) 1 each MISCELLANE ONCE PRN PRN Reason: Consult order Sodium Chloride (0.9 % Sodium Chloride Flush 3 Ml Syringe) 3 ml IVFLUSH QSHIFT [facility] Last Admin: 07/30/21 08:21 Dose: 3 ml Documented by: GUS Labs CBC & Chem 7: 07/29/21 05:28 07/29/21 05:28 Labs: Laboratory Results - last 24 hr 07/29/21 07/29/21 07/30/21 15:19 19:42 07:15 POC Glucose 221 H 234 H 228 H 07/30/21 11:16 POC Glucose 298 H Microbiology Microbiology Results: Microbiology 07/25/21 00:50 Blood Culture - Final Blood - Venous No growth after 5 days. 07/25/21 00:50 Blood Culture - Final Blood - Venous No growth after 5 days. Assessment and Plan (1) Hypotension: Status: Acute Plan hospital d#5 81yo F with possible vascular dementia, hx CVA, long-term SNF resident at [facility] sent in with altered mental status found to be hypoglycemic also had acute vs. subacute fx through base of greater trochanter on left, superimposed on prior femoral neck fx noted on Dec 2020 # metabolic encephalopathy due to DM with hypoglycemia - resolved with D50, Lantus held # sepsis due to aspiration PNA - ceftriaxone d#07/04, can complete with cefuroxime upon discharge - PULP MAKER following, continue NDD1 [pureed] solids, nectar-thick liquids # acute hematuria - hold LMWH + clopidogrel, Urology consult pending # acute/chronic L hip fracture - ortho consulted, pt non-ambulatory so no operative fixation indicated # HTN - continue metoprolol - resumed losartan - amlodipine + spironolactone held due to sepsis, resume if needed # hx CVA - continue statin; hold clopidogrel due to bleeding # DM2 - correction-dose lispro, A1c well-controlled at 6.4, Lantus discontinued due to hypoglycemia # mood disorder - fluoxetine, bupropion # VTE ppx - SCDs; hold LMWH due to hematuria # dispo - plan return [place] pending resolution of hematuria In my clinical judgment, the patient requires continued hospitalization for the following reasons: hematuria IV ABX Quality Stroke Does the patient have a stroke diagnosis?: No VTE Prior VTE?: No VTE Risk Level:: Medical - moderate - high VTE Device Contraindication: Treatment Not Indicated VTE Drug Contraindication: N/A - Med Ordered
[2021-07-30 16:31] LABS: Glucose, Whole Blood 247 mg/dL (60-115)
[2021-07-30 20:15] LABS: Glucose, Whole Blood 217 mg/dL (60-115)
[2021-07-30] MEDS: Atorvastatin Calcium 10 MG TABLET PO (20:19)
[2021-07-30 23:55] VITALS: BP 125/53; PULSE 80; RESP 18; TEMP 36.4; O2SAT 97
[2021-07-31] MEDS: cefTRIAXone sodium 1 GM in 0.9 % Sodium Chloride 50 ML IV (01:42)
[2021-07-31] MEDS: Acetaminophen 325 MG TABLET 650 MG PO (05:05)
[2021-07-31 06:08] LABS: Hematocrit 29.7 % (37.0-47.0); Hemoglobin 9.8 g/dl (12.0-16.0); Mean Corpuscular Volume 97.1 fL (80.0-98.0); Mean Platelet Volume 10.8 fL (9.4-12.3); Platelet Count 319 X10*3/uL (160-400); Red Blood Count 3.06 X10*6/uL (4.20-5.50); Red Cell Distribution Width 13.2 % (11.0-16.0); White Blood Count 10.9 X10*3/uL (4.8-10.8)
[2021-07-31 07:08] VITALS: BP 138/59; PULSE 90; RESP 20; TEMP 36.6; O2SAT 99
[2021-07-31 07:24] LABS: Glucose, Whole Blood 209 mg/dL (60-115)
[2021-07-31] MEDS: Insulin Lispro 100 UNIT/ML 3 ML VIAL SUBCUT ×4 (08:05→21:01)
[2021-07-31] MEDS: FLUoxetine HCl 20 MG CAPSULE 40 MG PO (08:06)
[2021-07-31] MEDS: Famotidine 20 MG TABLET PO ×2 (08:06→20:09)
[2021-07-31] MEDS: Losartan Potassium 50 MG TABLET PO (08:06)
[2021-07-31] MEDS: buPROPion HCL 75 MG TABLET PO ×2 (08:07→20:09)
[2021-07-31] MEDS: Metoprolol Succinate ER 25 MG TAB.ER.24H PO (08:13)
[2021-07-31] MEDS: 0.9 % Sodium Chloride Flush 3 ML SYRINGE IVFLUSH ×3 (08:14→20:11)
[2021-07-31 10:46] VITALS: BP 148/58; PULSE 85; RESP 16; TEMP 36.3; O2SAT 98
--- NOTE | 2021-07-31 10:56 | MHC.SL.SWA ---
Speech Pathologist Impression: Risk of Aspiration Due to: Neurological Condition History of Pneumonia Dysphasia Diet Status: Liquid Consistency and Strategies for Safe Swallow: Liquid Intake Recommendation: thin liquids Liquid Intake Strategies: Small Sips Solid Food Consistency: Dietary Recommendations: Pureed (NDD1) Additional Modifications to Solid Foods: Patient requires total supervision, assistance as needed for meals. Aspiration precautions apply. EVENT MANAGER will continue to follow, upgrade if warranted. Oral Medication Intake: Crushed with Puree Please contact the pharmacy regarding appropriate crushable or liquid drug formulations that are available whenever modified delivery is recommended. Compensatory Strategies and Precautions to be Taken for Safe Swallow: Sitting Upright (90 deg) Liquids from Cup Small Bites and Sips Alternate Liquids/Solids Rate of Ingestion Change Oral Check Supervision While Eating and Drinking for Safe Swallow: Total Assistance (1:1) Foods to Avoid: Swallowing Recommended Treatments: Compens. Strategy Educat. Recommendation for Speech: Inpatient Speech Therapy Comment: EVENT MANAGER to re-evaluate tomorrow morning. Frequency/Duration: Date Range for Service Req: Timeline to reassess: Fire Range Technician Clinican/Clinical Fellow: No Supervisory Statement: I have reviewed and agree with the student/clinical fellow's documentation: N/A Speech Language Pathologist: Marija Nicolas M.A., CCC-EVENT MANAGER
[2021-07-31 10:59] LABS: Glucose, Whole Blood 261 mg/dL (60-115)
--- NOTE | 2021-07-31 11:37 | HO.PM.IMPN ---
Subjective Subjective Date of Service: 07/31/21 Interval History: Pt denies any pain. Cough improving. Urine is dark indicating old blood Review of Systems no active hematuria, nof ever or chills Physical Exam Vital Signs: Vital Signs: Last Vital Signs Temp 97.4 F 07/31/21 10:46 Pulse 85 07/31/21 10:46 Resp 16 07/31/21 10:46 BP 148/58 H 07/31/21 10:46 Pulse Ox 98 07/31/21 10:46 BMI result Body Mass Index 33.5 Const: Other: Gen: in no acute distress, frail HEENT: sclera anicteric, moist mucus membranes Neck: supple Lungs: scattered inspiratory crackles Heart: regular rate and rhythm, no murmurs Abd: soft, non-tender, non-distended Ext: no edema Skin: warm/well-perfused Neuro: alert and oriented to self only Psych: impaired insight Objective Data Active Medications Acetaminophen (Acetaminophen 325 Mg Tablet) 650 mg PO Q6H PRN PRN Reason: Pain, Mild (Pain Scale 1-3) Last Admin: 07/31/21 05:05 Dose: 650 mg Documented by: AURE Atorvastatin Calcium (Atorvastatin Calcium 10 Mg Tablet) 10 mg PO BEDTIME [facility] Last Admin: 07/30/21 20:19 Dose: 10 mg Documented by: AURE Bupropion HCl (Bupropion Hcl 75 Mg Tablet) 75 mg PO BID [facility] Last Admin: 07/31/21 08:07 Dose: 75 mg Documented by: NEEMA Clopidogrel Bisulfate (Clopidogrel Bisulfate 75 Mg Tablet) 75 mg PO DAILY [facility] Last Admin: 07/28/21 08:11 Dose: 75 mg Documented by: DARNELL Dextrose (Dextrose 50 % 25 Gm/50 Ml Syringe) 25 gm IVPUSH Q15M PRN; Protocol PRN Reason: per Hypoglycemia Standing Ord. Enoxaparin Sodium (Enoxaparin Sodium 40 Mg/0.4 Ml Syringe) 40 mg SUBCUT Q24H [facility] Last Admin: 07/28/21 08:11 Dose: 40 mg Documented by: DARNELL Famotidine (Famotidine 20 Mg Tablet) 20 mg PO BID [facility] Last Admin: 07/31/21 08:06 Dose: 20 mg Documented by: NEEMA Fluoxetine HCl (Fluoxetine Hcl 20 Mg Capsule) 40 mg PO DAILY [facility] Last Admin: 07/31/21 08:06 Dose: 40 mg Documented by: NEEMA Glucose (Glucose Gel 15 Gm Gel..Gram.) 15 gm PO Q15M PRN; Protocol PRN Reason: per Hypoglycemia Standing Ord. Ceftriaxone Sodium 1 gm/ (Sodium Chloride) 50 mls @ 100 mls/hr IV Q24H [facility] Last Infusion: 07/31/21 02:21 Dose: 0 mls/hr Documented by: JUANARISSaturnino Insulin Human Lispro (Insulin Lispro 100 Unit/Ml 3 Ml Vial) 0 unit SUBCUT QIDACHS [facility]; Protocol Last Admin: 07/31/21 08:05 Dose: 4 unit Documented by: NEEMA Losartan Potassium (Losartan Potassium 50 Mg Tablet) 50 mg PO DAILY [facility]; Protocol Last Admin: 07/31/21 08:06 Dose: 50 mg Documented by: NEEMA Metoprolol Succinate (Metoprolol Succinate Er 25 Mg Tab.Er.24h) 25 mg PO DAILY [facility]; Protocol Last Admin: 07/31/21 08:13 Dose: 25 mg Documented by: NEEMA Pharmacy Consult (Consult Rx Perform Med Rec) 1 each MISCELLANE ONCE PRN PRN Reason: Consult order Sodium Chloride (0.9 % Sodium Chloride Flush 3 Ml Syringe) 3 ml IVFLUSH QSHIFT [facility] Last Admin: 07/31/21 08:14 Dose: 3 ml Documented by: NEEMA Labs CBC & Chem 7: 07/31/21 05:30 07/29/21 05:28 Labs: Laboratory Results - last 24 hr 07/30/21 07/30/21 07/31/21 16:24 19:43 05:30 MCV 97.1 MCH 32.0 MCHC 33.0 RDW 13.2 Plt Count 319 MPV 10.8 Absolute Nucleated RBC 0.000 Nucleated RBC % (auto) 0.0 POC Glucose 247 H 217 H Procalcitonin 07/31/21 07/31/21 07/31/21 05:30 07:05 10:48 MCV MCH MCHC RDW Plt Count MPV Absolute Nucleated RBC Nucleated RBC % (auto) POC Glucose 209 H 261 H Procalcitonin 0.30 Assessment and Plan (1) Hypotension: Status: Acute Plan hospital d#6 81yo F with possible vascular dementia, hx CVA, long-term SNF resident at [facility] sent in with altered mental status found to be hypoglycemic also had acute vs. subacute fx through base of greater trochanter on left, superimposed on prior femoral neck fx noted on Dec 2020 # metabolic encephalopathy due to DM with hypoglycemia - resolved with D50, Lantus on hold, BS 261 this morning # sepsis due to aspiration PNA - ceftriaxone d#08/04, can complete with cefuroxime upon discharge - [employer] following, continue NDD1 [pureed] solids, nectar-thick liquids # acute hematuria - hold LMWH + clopidogrel, Urology consult pending, hematuria seems to be resolving # acute/chronic L hip fracture - ortho consulted, pt non-ambulatory so no operative fixation indicated # HTN - continue metoprolol - resumed losartan - amlodipine + spironolactone held due to sepsis, resume if needed # hx CVA - continue statin; hold clopidogrel due to bleeding # DM2 - Correction-dose lispro, A1c well-controlled at 6.4, Lantus discontinued due to hypoglycemia # mood disorder - fluoxetine, bupropion # VTE ppx - SCDs; hold LMWH due to hematuria # dispo - plan return to [facility] pending resolution of hematuria In my clinical judgment, the patient requires continued hospitalization for the following reasons: hematuria IV ABX Quality Stroke Does the patient have a stroke diagnosis?: No VTE Prior VTE?: No VTE Risk Level:: Medical - moderate - high VTE Device Contraindication: Treatment Not Indicated VTE Drug Contraindication: N/A - Med Ordered
[2021-07-31 12:49] LABS: COVID-19 Test Negative (Negative)
[2021-07-31 15:12] VITALS: BP 129/79; PULSE 83; RESP 18; TEMP 36.9; O2SAT 99
[2021-07-31 15:43] LABS: Glucose, Whole Blood 241 mg/dL (60-115)
[2021-07-31] MEDS: Atorvastatin Calcium 10 MG TABLET PO (20:09)
[2021-07-31 20:31] LABS: Glucose, Whole Blood 261 mg/dL (60-115)
[2021-07-31 23:36] VITALS: BP 124/56; PULSE 68; RESP 18; TEMP 37.1; O2SAT 98
[2021-08-01] MEDS: cefTRIAXone sodium 1 GM in 0.9 % Sodium Chloride 50 ML IV (02:39)
[2021-08-01 07:39] VITALS: BP 164/74; PULSE 86; RESP 18; TEMP 36.8; O2SAT 96
[2021-08-01 08:31] LABS: Glucose, Whole Blood 220 mg/dL (60-115)
[2021-08-01] MEDS: Metoprolol Succinate ER 25 MG TAB.ER.24H PO (08:43)
[2021-08-01] MEDS: FLUoxetine HCl 20 MG CAPSULE 40 MG PO (08:43)
[2021-08-01] MEDS: 0.9 % Sodium Chloride Flush 3 ML SYRINGE IVFLUSH ×2 (08:43→17:14)
[2021-08-01] MEDS: Insulin Lispro 100 UNIT/ML 3 ML VIAL SUBCUT ×3 (08:43→17:13)
[2021-08-01] MEDS: Famotidine 20 MG TABLET PO (08:44)
[2021-08-01] MEDS: Losartan Potassium 50 MG TABLET PO (08:44)
[2021-08-01] MEDS: buPROPion HCL 75 MG TABLET PO (08:44)
[2021-08-01 10:38] LABS: Hematocrit 30.7 % (37.0-47.0); Mean Corpuscular HGB Conc 32.6 g/dl (31.0-35.0); Mean Corpuscular Hemoglobin 31.7 pg (27.0-33.0); Mean Corpuscular Volume 97.5 fL (80.0-98.0); Mean Platelet Volume 10.8 fL (9.4-12.3); Platelet Count 360 X10*3/uL (160-400); Red Blood Count 3.15 X10*6/uL (4.20-5.50); Red Cell Distribution Width 13.2 % (11.0-16.0); White Blood Count 11.3 X10*3/uL (4.8-10.8)
--- NOTE | 2021-08-01 11:24 | MHC.CM.PN ---
PT MEDICALLY CLEARED TO D/C BACK [facility] [address] CONTACTED PT'S SISTER KEVIN AT 11:25AM [phone], KEVIN AGREEABLE TO PLAN, TRANSPORT SET UP W/[facility] D/T INSURANCE AND [facility] THEY CAN TRANSPORT PT IS 7PM AND WILL CONTACT UNIT IF THEY CAN TRANSPORT SOONER.
--- NOTE | 2021-08-01 11:25 | PM.DS ---
DS: Providers Provider Date of Service: 08/01/21 Date of admission: 07/25/21 07:54 Primary care physician: Unknown Physician Consults: 07/25/21 07:50 Consult to Orthopedics Routine Consulting Provider: Tommy Posada Reason for consultation: left hip fracture 12/2020 with ?acute changes 07/28/21 15:02 Consult to Urology Routine Consulting Provider: Chris Saeed Reason for consultation: gross hematuria DS: Diagnosis Discharge Diagnosis (1) Hypotension: Status: Acute DS: Summary Hospital Course Hospital Course: Chief Complaint: ams history provided by ED physician through EMS reports and SNF. 81F presented from SNF with ams and hypoglycemia. she was unresponsive at facility which she was at for left hip fracture from dec 2020 that was non operable. EMS gave D50 which improved patient's mental status. in ED UA grossly positive, patient hypothermic, leukocytosis. CT showed left femoral fracture with new component at base of greater trochanter acuity unclear. there is no reported history of recent fall. Hospital course: # metabolic encephalopathy due to DM with hypoglycemia with glucose level of 33 on presentation. This was treated with D50, Lantus has been stopped and will continue Pre-meal insulin 5 units and add sliding scale insulin. She was on Lantus 56 utnits # sepsis due to aspiration PNA--Has completed 7 days of Ceftriaxone with no more sings of Pneumonia. Aspiration precaution and dysphagia diet # Acute hematuria--due to heparin and Plavix combination. Plavix and Lovneox were stopped and Hematuria has resolved. Discussed with Urology and they planned on no interventio. Plan to resume Plavix in 5 days # acute/chronic L hip fracture--Previously fractured the hip on December last year--She was evaluated by Ortho with the following remarks: Of note the orthopedic team was consulted on this patient when she fell 12/2020. After speaking with the family at that time it was understood that the patient is nonambulatory and only pivoted for transfers. Therefore, the patient would not have benefited from surgical intervention at that time for hip fracture which was discussed and decided with family. X-rays of the left hip reveals an acute greater trochanteric hip fracture. However, with the patient being nonambulatory there is no need for further orthopedic intervention. # HTN--continue Metoprolol, Norvasc, Aldactone. # hx CVA - continue statin; hold clopidogrel due to bleeding.. But restart in 5 days # DM2--See above # mood disorder continue fluoxetine, bupropion Time Spent with Patient Time attestation: Total time spent providing and/or coordinating discharge services: Discharge coordination time: Greater than 30 minutes Quality: Safe Use of Opioids Does Pt have an Active Cancer Diagnosis on the Problem List?: No Quality: Stroke Does the patient have a stroke diagnosis?: No Physical Exam Vital Signs: Vital Signs: Last Vital Signs Temp 98.3 F 08/01/21 07:39 Pulse 86 08/01/21 07:39 Resp 18 08/01/21 07:39 BP 164/74 H 08/01/21 07:39 Pulse Ox 96 08/01/21 07:39 BMI result Body Mass Index 33.5 DS: Data Data Completed and Pending Labs on day of discharge: Laboratory Results - last 24 hr 07/31/21 07/31/21 07/31/21 12:23 15:13 20:13 WBC RBC Hgb Hct MCV MCH MCHC RDW Plt Count MPV Absolute Nucleated RBC Nucleated RBC % (auto) POC Glucose 241 H 261 H COVID-19 ([facility]IKA) Negative COVID-19 Clin Com See Note 08/01/21 08/01/21 07:47 09:53 WBC 11.3 H RBC 3.15 L Hgb 10.0 L Hct 30.7 L MCV 97.5 MCH 31.7 MCHC 32.6 RDW 13.2 Plt Count 360 MPV 10.8 Absolute Nucleated RBC 0.000 Nucleated RBC % (auto) 0.0 POC Glucose 220 H COVID-19 ([facility]IKA) COVID-19 Clin Intervention Insights Discharge Plan Discharge Anticipated Discharge Date/Time: 08/01/21 10:30 Patient Disposition: Xfer SNF Discharge Diagnosis: Hip fracture Referrals: Physician,Unknown J [Primary Care Provider] - 1 Week Discharge Medications: New insulin lispro [Humalog U-100 Insulin] 100 unit/mL Solution See Protocol unit subcut QIDACHS Qty: 10 0RF Protocol: Insulin Correction Scale Less than or equal to 110 ---- Give (units): 0 111 to 150 Give (units): 0 151 to 200 Give (units): 2 201 to 250 Give (units): 4 251 to 300 Give (units): 6 301 to 350 Give (units): 8 Greater than 350 Give (units): 10 Call MD if Blood Glucose > : 350 Continued cefuroxime axetil 250 mg tablet 1 tab PO BID 0RF bupropion HCl 75 mg tablet 1 tab PO BID 0RF insulin lispro 100 unit/mL insulin pen 5 unit subcut TID 0RF losartan 50 mg tablet 1 tab PO DAILY 0RF fluoxetine 40 mg capsule 1 cap PO DAILY 0RF spironolactone 25 mg tablet 1 tab PO DAILY 0RF famotidine 20 mg tablet 1 tab PO BID 0RF amlodipine 10 mg tablet 1 tab PO DAILY 0RF simvastatin 20 mg tablet 1 tab PO BEDTIME 0RF metoprolol succinate 25 mg tablet extended release 24 hr 1 tab PO DAILY 0RF Held clopidogrel 75 mg tablet 1 tab PO DAILY 0RF Hold Instructions: Resume on 08/06/21. Discontinued Lantus Solostar U-100 Insulin 100 unit/mL (3 mL) insulin pen 56 unit subcut BEDTIME 0RF Discharge Orders: Discharge Order (Routine); Ordered 08/01/21 Ordered By: Gabriel Ojeda Diet: advance to usual diet and diabetic diet Activity on Discharge: As tolerated Stand Alone Forms: Patient Portal Discharge page Care Plan Goals: Healing of hip fracture, resulution of hematuria Health Concerns: hip fracture, hematuria, Plan of Treatment: To return to SNF Lantus is discontinued due to hypoglycemia USe pre meal insulin and Sliding scale insulin Hold Plavix for at 5 more days and resart and if bleed again then should be stopped Diet: Puree with thin liquid Assessment: As above
[2021-08-01 11:52] LABS: Glucose, Whole Blood 293 mg/dL (60-115)
[2021-08-01 15:05] VITALS: BP 149/66; PULSE 80; RESP 18; TEMP 36.1; O2SAT 97
[2021-08-01 16:05] LABS: Glucose, Whole Blood 198 mg/dL (60-115)
== END 2021-08-01 19:54 | disposition skilled nursing facility (03) | DRG 871 ==
LOC: HO.ED 07-25 03:21 → HO.EDOVER 07-25 08:01 → HO.S3 07-27 10:51
PROVIDERS: Family Medicine; Physician Assistant; Admitting Provider Internal Medicine; Emergency Provider Emergency Medicine Emergency Medical Services; PCP Internal Medicine; Visit Provider Internal Medicine
DX: A41.9 Sepsis, unspecified organism (principal); S72.112A Displaced fracture of greater trochanter of left femur, initial encounter for closed fracture; G93.41 Metabolic encephalopathy; J69.0 Pneumonitis due to inhalation of food and vomit; N39.0 Urinary tract infection, site not specified; Z66 Do not resuscitate; F01.50 Vascular dementia, unspecified severity, without behavioral disturbance, psychotic disturbance, mood disturbance, and anxiety; I69.820 Aphasia following other cerebrovascular disease; E11.649 Type 2 diabetes mellitus with hypoglycemia without coma; I95.9 Hypotension, unspecified; R68.0 Hypothermia, not associated with low environmental temperature; X58.XXXA Exposure to other specified factors, initial encounter; R31.0 Gross hematuria; I10 Essential (primary) hypertension; F32.A Depression, unspecified; Z20.822 Contact with and (suspected) exposure to COVID-19; Z79.4 Long term (current) use of insulin; Z79.02 Long term (current) use of antithrombotics/antiplatelets; Z79.84 Long term (current) use of oral hypoglycemic drugs; Z79.899 Other long term (current) drug therapy
CPT/HCPCS: 36415; 70450; 71250; 72125; 73502; 74176; 80048; 80053; 80143; 80179; 81001; 82550; 82947; 83036; 83605; 83735; 83880; 84145; 84439; 84443; 84484; 85025; 85027; 85379; 87040; 87086; 87635; 92526; 92610; 93005; 96361; 96365; 96366; 96375; 99285; J0696; J1650